=== PATIENT | female | born 1970 | race Caucasian/White ===

== ENCOUNTER 2019-10-13 00:37 | Day surgery (SDC) | payer BC, SELFPAY ==
[2019-09-28 14:17] VITALS: BMI 39.3
[2019-10-13] VITALS (7 sets, daily range): BP systolic 101–140; BP diastolic 76–92; PULSE 80–98; RESP 16–20; TEMP 36.7; O2SAT 96
--- NOTE | 2019-10-13 07:23 | WPDHPUPDATE1 ---
History and Physical Update Update Date/Time: 10/13/19 07:23 History and Physical has been reviewed, including an updated exam of the patient. There are NO changes in the patient's condition. Risks, benefits, and alternatives have been discussed and questions answered. Patient agrees to proceed with procedure.
[2019-10-13] MEDS: LACTATED RINGERS 1,000 ML 30 ML IV CONT ×2 (08:40→11:33)
--- NOTE | 2019-10-13 08:45 | WPDANESEPPF ---
Anes - Initial Pre Proc Eval Procedure: Operation Date: 10/13/19 09:30 Proposed Procedures p Urethral Sling - Sathish Dozier MD Date/Time: 10/13/19 08:45 Surgeon: Sathish Dozier MD Pre Op Diagnosis: Stress incontinence Patient Data Age: 48 Gender: F Height: 5 ft 7 in Weight: 117.3 kg Allergies Allergy/AdvReac Type Severity Reaction Status Date / Time levofloxacin AdvReac Mild UPSET Verified 10/13/19 08:22 STOMACH Home Medications Medication Instructions Recorded Confirmed Type Cholestyramine Light 4 g PO BID 08/08/19 09/28/19 History Uribel 1 tablet PO TID 08/08/19 09/28/19 History ergocalciferol (vitamin D2) 50,000 unit PO WEEKLY 08/08/19 09/28/19 History [Vitamin D2] multivitamin 1 tablet PO DAILY 08/08/19 09/28/19 History pantoprazole 40 mg PO QAM 08/08/19 09/28/19 History albuterol sulfate 90 mcg/actuation 2 puff INHALATION Q4-6H PRN #8.5 gm 08/21/19 09/28/19 Rx aerosol inhaler amitriptyline 75 mg tablet 75 mg PO HS 08/21/19 09/28/19 History triamcinolone acetonide 0.1 % 1 applic TOPICAL BID PRN #30 gm 08/21/19 09/28/19 Rx topical cream hydroxyzine HCl 25 mg tablet 25 mg PO QID PRN #40 tablet 09/11/19 09/28/19 Rx tizanidine 4 mg tablet 4 mg PO TID PRN #90 tablet 09/12/19 09/28/19 Rx Patient hx anesthesia problems: none Family hx anesthesia problems: none PMFSH Past Medical History Medical History GERD (gastroesophageal reflux disease) Smoker Tobacco abuse Family History Family History Father Patient's father is in good health Mother Patient's mother is Sibling Diabetes mellitus Family history of blood dyscrasia Family history of pulmonary embolism Family history of hearing loss Social History Social History Smoking status: Current every day smoker Second hand tobacco smoke exposure: No Alcohol intake: never Anes - Eval Final PreProcedure Day of Procedure 10/13/19 08:45 Patient weight: morbidly obese Heart: regular rate and rhythm Lungs: decreased breath sounds Airway: Mallampati scale class II Neurological: alert and oriented Last oral intake: >/= 8 hours ASA classification: III Emergent: no Anesthetic plan: proceed Anesthesia type and monitoring: general GIVS and standard monitoring Informed Consent: The patient's anesthetic plan and its attendant risks and benefits were discussed with the patient/family/POA. Questions were solicited and answers provided to the satisfaction of the patient/family/POA.
[2019-10-13] MEDS: ceFAZolin 2 GM/D5W 50 ML 2 GM/50 ML BAG IVPB (09:18)
[2019-10-13] MEDS: BUPIVACAINE/EPINEPHRINE 0.25% 50 ML VIAL INFILTRATE (09:30)
--- NOTE | 2019-10-13 10:07 | PM.PROC ---
Procedure Note - Detailed Date of procedure: 10/13/19 Pre-op diagnosis: Stress incontinence Post-op diagnosis: same Procedure performed: Retropubic mid urethral sling Cystoscopy Description of procedure: She has recurrence stress incontinence after a single incision sling. She has a history of hidradenitis suppurativa of the inner groin necessitating a approach that is not involved inner thigh incisions. She presents today for a retropubic sling. She has been pretreated with antibiotics. She has no active abscesses in her groin. She has no symptoms of urinary tract infection. She understands the risks of bleeding, infection, damage to the bladder, vaginal mesh extrusion, urinary tract mesh erosion, obstructive voiding requiring secondary procedure, hip and leg pain, dyspareunia, who recurrence or persistent stress incontinence. She agrees to proceed. She was correctly identified and informed consent was obtained. She is brought the operating room. She was given mac anesthesia. She was prepped and draped in a sterile fashion. A time-out performed. I placed a Worthy catheter. I anesthetized the anterior vaginal wall over the mid urethra. I made a 1 cm incision. I dissected out laterally taking great care not to injure the urethra vaginal wall. Oral sling was seen but not disturbed. I am made suprapubic incisions 1 finger breath on each side of the midline. I hydro distended to use the space of Retzius with local mixture of lidocaine and saline. I passed the suprapubic trocars from the suprapubic incision towards the vaginal incision. Cystoscopy was performed. There is no signs of any bladder violation. There is no erythema redness in the bladder and no signs of infection. I connected the sling to the trocars and brought them out through the suprapubic incisions. I tensioned the sling appropriately. I cut and removed the plastic sheaths. I then closed the incision with 2 Vicryl. I reperformed cystoscopy. There is no signs of any foreign body or abnormality in the bladder. Ureteral orifices are normal. Urethra is normal as well. There was no leakage on Crede day. I cut excess sling material. Close incision with glue. She was awakened and transferred to the PACU in stable condition. Anesthesia: MAC Surgeon: Sathish Dozier MD Estimated blood loss (mL): 30 Drains: No Packing: No Pathology: none sent Complications: No immediate complications Condition: stable Disposition: PACU
--- NOTE | 2019-10-13 10:30 | SUR.PHASEII ---
ATTEMPTED BUT UNABLE TO VOID.
--- NOTE | 2019-10-13 11:44 | SUR.PHASEII ---
ATTEMPTED 3RD TIME TO VOID WITHOUT SUCCESS. C/O'ING URGENCY AND PRESSURE.
--- NOTE | 2019-10-13 12:38 | SUR.PHASEII ---
1300 DR. HESTER NOTIFIED RE: PT UNABLE TO VOID. DR. HESTER ORDERED TO PLACE HALL CATHETER TO GO HOME WITH. PT AND INSTRUCTED RE: HOW TO EMPTY HALL BAG. 825 ML PALE-PINK URINE WITH 1 CLOT NOTED. PT FEELS MUCH BETTER; PAIN 2/10.
== END 2019-10-13 12:40 | disposition home or self-care (01) ==
PROVIDERS: PCP Physician Assistant; Visit Provider Urology
PROC: (CPT 57288; principal; 2019-10-13 09:30)
DX: N39.3 Stress incontinence (female) (male) (principal); K21.9 Gastro-esophageal reflux disease without esophagitis; F17.210 Nicotine dependence, cigarettes, uncomplicated; E66.01 Morbid (severe) obesity due to excess calories; Z68.41 Body mass index [BMI] 40.0-44.9, adult
CPT/HCPCS: 57288; A9270; C1771; J0131; J0690; J2250; J2704; J3010; J7030; J7120

== ENCOUNTER 2019-10-14 16:19 | Emergency (ER) | payer BC, SELFPAY ==
[2019-10-14 16:41] VITALS: BP 137/92; PULSE 96; RESP 18; TEMP 36.8; O2SAT 98
--- NOTE | 2019-10-14 17:11 | ED.GENADULT ---
HPI - General Adult General Chief complaint: Urogenital-Female Stated complaint: HALL ISSUE Time Seen by Provider: 10/14/19 17:07 Source: patient Mode of arrival: ambulatory Limitations: no limitations History of Present Illness HPI narrative: Patient had surgery yesterday for bladder sling. She was not able to void after surgery so they placed a Hall today she does not feel as though the Hall is draining appropriately she stated that there was 300ml out yesterday after they placed it only on 100ml today, and she feels like her bladder is full. Bladder scan shows an empty bladder Onset (ago): hour(s) Associated symptoms: denies other symptoms Related Data Home Medications Medication Instructions Recorded Confirmed Cholestyramine Light 4 g PO BID 08/08/19 10/13/19 Uribel 1 tablet PO TID 08/08/19 10/13/19 ergocalciferol (vitamin D2) 50,000 unit PO WEEKLY 08/08/19 10/13/19 [Vitamin D2] multivitamin 1 tablet PO DAILY 08/08/19 10/13/19 pantoprazole 40 mg PO QAM 08/08/19 10/13/19 amitriptyline 75 mg tablet 75 mg PO HS 08/21/19 10/13/19 Allergies Allergy/AdvReac Type Severity Reaction Status Date / Time levofloxacin AdvReac Mild UPSET Verified 10/13/19 08:22 STOMACH Review of Systems Review of Systems: All systems reviewed & are unremarkable except as noted in HPI and below PMFSH Past Medical History Medical History (Updated 10/14/19 @ 17:56 by Roseanna Moctezuma PA-C) Fallen bladder GERD (gastroesophageal reflux disease) Smoker Tobacco abuse Family History Family History Father Patient's father is in good health Mother Patient's mother is Sibling Diabetes mellitus Family history of blood dyscrasia Family history of pulmonary embolism Family history of hearing loss Social History Social History Smoking status: Current every day smoker Second hand tobacco smoke exposure: No Alcohol intake: never Gender identity (if verbalized by the patient): Female Exam Const: General: no acute distress Resp: Effort & Inspection: normal respiratory effort Auscultation: clear to auscultation bilaterally Cardio: Rate: regular rate Rhythm: regular rhythm GI: GI Palp: Yes Soft to palpation : General: Yes bladder normal to palpation Urinary Catheter: Urinary Catheter: patent and draining and urine clear Skin: General skin exam: normal color Rashes: no rashes Extrem: General: normal to inspection Psych: Mental Status: mental status grossly normal Course Course Emergency Course: Hall was placed yesterday after the patient's urologic surgery to repair her ability to void. She has an appointment on Wednesday for Hall removal. It seems the patient was unclear as to how to position the Hall for optimal drainage. Education done in the emergency room, the Hall is draining well. We flushed to make sure that there were no obstructions. Patient can follow-up with her urologist as scheduled. She is fine with the plan. Vital Signs Vital signs: Vital Signs Temperature 36.8 C 10/14/19 16:41 Pulse Rate 96 10/14/19 16:41 Respiratory Rate 18 10/14/19 16:41 Blood Pressure 137/92 H 10/14/19 16:41 Pulse Oximetry 98 10/14/19 16:41 Temperature 36.8 C 10/14/19 16:41 Pulse Rate 96 10/14/19 16:41 Respiratory Rate 18 10/14/19 16:41 Blood Pressure 137/92 H 10/14/19 16:41 Pulse Oximetry 98 10/14/19 16:41 Medical Decision Making Vital Signs Vital Signs: Vital Signs Temperature 36.8 C 10/14/19 16:41 Pulse Rate 96 10/14/19 16:41 Respiratory Rate 18 10/14/19 16:41 Blood Pressure 137/92 H 10/14/19 16:41 Pulse Oximetry 98 10/14/19 16:41 Temperature 36.8 C 10/14/19 16:41 Pulse Rate 96 10/14/19 16:41 Respiratory Rate 18 10/14/19 16:41 Blood Pressure 137/92 H 10/14/19 16:41 Pulse Oximetry 98 10/14/19 16:4
== END 2019-10-14 18:17 | disposition home or self-care (01) ==
LOC: ANHED 18:10
PROVIDERS: Emergency Provider Emergency Medicine; PCP Physician Assistant
DX: Z46.6 Encounter for fitting and adjustment of urinary device (principal); K21.9 Gastro-esophageal reflux disease without esophagitis; Z98.890 Other specified postprocedural states; F17.200 Nicotine dependence, unspecified, uncomplicated
CPT/HCPCS: 99283

== ENCOUNTER → 2020-06-20 10:20 | Outpatient (CLI) | payer BC, SELFPAY ==
--- NOTE | ~2020-06-20 | MM_ITS ---
EXAMINATION: MM screening [facility] HISTORY: Screening TECHNIQUE: Craniocaudal and mediolateral oblique 3-D tomosynthesis images were obtained and synthetic 2-D images were generated. CAD analysis was submitted and interpreted. COMPARISON: Comparison to multiple prior studies sequentially, with oldest reviewed study dated 10/2017. BREAST PARENCHYMAL COMPOSITION: There are scattered areas of fibroglandular density. FINDINGS: There is no evidence of suspicious mass, calcification, or architectural distortion to sugg est malignancy in either breast. There has been no suspicious interval change. IMPRESSION: 1. No mammographic evidence of malignancy. 2. Recommend routine screening mammography in one year. BI-RADS Category 1: Negative Reviewed, dictated and finalized at location A.
== END ==
PROVIDERS: PCP Physician Assistant; Visit Provider Advanced Practice Midwife
DX: Z12.31 Encounter for screening mammogram for malignant neoplasm of breast (principal)
CPT/HCPCS: 77063; 77067

== ENCOUNTER → 2020-07-25 07:02 | Outpatient (CLI) | payer BC, SELFPAY ==
--- NOTE | ~2020-07-25 | MR_ITS ---
EXAMINATION: Marco Judd DATE: 07/25/2020 08:11 INDICATION: Arthralgia of bilateral temporomandibular joints. Right jaw pain and popping. Myalgia of mastication muscle. TECHNIQUE: Magnetic resonance imaging (MRI) of the temporomandibular joints was performed without int ravenous contrast. Sequences included closed-mouth sagittal T2-weighted FSE and PD-weighted FSE and c oronal T1-weighted SE and open-mouth sagittal T2-weighted FSE and PD-weighted FSE and coronal T1-weig hted SE. COMPARISON: None. FINDINGS: The right temporomandibular joint demonstrates normal morphology of the mandibular condyle. The disc is in normal position with the mouth closed. There is decreased anterior translation of the mandibula r condyle with the mouth open. The disc is in normal position with the mouth open. The left temporomandibular joint demonstrates small osteophytes of the mandibular condyle. The disc i s in normal position with the mouth closed. There is decreased anterior translation of the mandibular condyle with the mouth open. The disc is in normal position with the mouth open. IMPRESSION: 1. Mild left temporomandibular joint osteoarthritis. 2. Normal position of the discs with the mouth closed and open. Reviewed, dictated and finalized at location B. [employer]
== END ==
PROVIDERS: PCP Physician Assistant
DX: M79.11 Myalgia of mastication muscle (principal); M26.623 Arthralgia of bilateral temporomandibular joint; M26.633 Articular disc disorder of bilateral temporomandibular joint
CPT/HCPCS: 70336

== ENCOUNTER 2020-10-15 01:25 | Outpatient (CLI) | payer BC, SELFPAY ==
[2020-10-15 19:18] LABS: SARS-CoV-2 RNA PCR Negative
== END 2020-10-15 01:26 | disposition home or self-care (01) ==
LOC: ANHCOVIDDT 01:25
PROVIDERS: PCP Physician Assistant; Visit Provider Internal Medicine Gastroenterology
DX: Z01.812 Encounter for preprocedural laboratory examination (principal); Z20.822 Contact with and (suspected) exposure to COVID-19
CPT/HCPCS: C9803; U0003; U0005

== ENCOUNTER 2020-10-18 00:19 | Day surgery (SDC) | payer BC, SELFPAY ==
[2020-09-19 11:55] VITALS: BMI 38.0
[2020-10-02 13:40] VITALS: BMI 37.6
[2020-10-18 06:46] VITALS: BP 134/91; PULSE 96; RESP 18; TEMP 36.6; O2SAT 98
[2020-10-18] MEDS: LACTATED RINGERS 1,000 ML 150 ML IV CONT (06:52)
--- NOTE | 2020-10-18 07:24 | WPDGICN ---
Assessment and Plan Assessment and plan (1) Dysphagia: Code(s): R13.10 - Dysphagia, unspecified Status: Acute Assessment and Plan: Because of patient's difficulty swallowing EGD will be performed to exclude narrowing of the esophagus. (2) GERD (gastroesophageal reflux disease): Code(s): K21.9 - Gastro-esophageal reflux disease without esophagitis Status: Acute Assessment and Plan: Patient has a history of GE reflux disease normal EGD described in 2017. Plan is for follow-up EGD at this time to assess response to current therapy a pantoprazole 40 mg p.o. daily. Patient should continue to elevate head of bed at night with no late snacks. GI Consult Note Consult date/time: 10/18/20 07:24 HPI: Marco Judd is a 49 year old female seen in evaluation at the request of MARY Baptiste. Patient complains of difficulty swallowing. Food will catch the mid substernal portion the chest. These symptoms have been present for the last 1-2 months. Patient does have a longstanding history of acid reflux disease. Previously seen by Dr. Ellis Sullivan patient states that the symptoms have been improved with no heartburn taking pantoprazole 40 mg p.o. daily. She occasionally will supplement this with Zofran. Patient's family history is noncontributory. Patient denies any weight loss or bleeding. Because of difficulty swallowing patient presents today for EGD to evaluate more thoroughly. Review of Systems Review of Systems: All systems reviewed & are unremarkable except as noted in HPI and below PMFSH Past Medical History Medical History (Updated 10/18/20 @ 07:26 by Sajan Jackson MD) Fallen bladder GERD (gastroesophageal reflux disease) Smoker Tobacco abuse Surgical History Surgical History History of bladder surgery Family History Family History Father Patient's father is in good health Mother Patient's mother is Sibling Diabetes mellitus Family history of blood dyscrasia Family history of pulmonary embolism Family history of hearing loss Social History Social History Smoking packs per day: 0.5 Smoking cigarettes per day: 10.0 Years smoked: 15 Smoking pack-years: 7.50 Smoking status: Current every day smoker Tobacco type: cigarettes Second hand tobacco smoke exposure: No Alcohol intake: former Drinks per week: 1 Substance use: never Substance use type: does not use Living arrangements: with family Gender identity (if verbalized by the patient): Female Spiritual care concerns: No Meds Home Medications and Allergies Home Medications Medication Instructions Recorded Confirmed Type Cholestyramine Light 4 g PO BID 08/08/19 10/02/20 History multivitamin 1 tablet PO DAILY 08/08/19 10/02/20 History pantoprazole 40 mg PO QAM 08/08/19 10/02/20 History albuterol sulfate 90 mcg/actuation 2 puff INHALATION Q4-6H PRN #8.5 gm 04/04/20 10/02/20 Rx aerosol inhaler mirabegron 50 mg tablet,extended 50 mg PO DAILY 04/04/20 10/02/20 History release 24 hr hydroxyzine HCl 25 mg tablet 25 mg PO QID PRN #60 tablet 04/05/20 10/02/20 Rx diclofenac sodium 75 mg 75 mg PO BID PRN #60 tablet 05/08/20 10/02/20 Rx tablet,delayed release tizanidine 4 mg tablet 4 mg PO TID PRN #90 tablet 06/12/20 10/02/20 Rx amitriptyline 150 mg PO HS 10/02/20 10/02/20 History fluticasone propionate 2 spray INTRANASAL DAILY 10/02/20 10/02/20 History Allergies Allergy/AdvReac Type Severity Reaction Status Date / Time levofloxacin AdvReac Mild UPSET Verified 10/18/20 06:45 STOMACH Vital Signs Vital Signs - 24 hr 10/18/20 06:46 Temperature 97.9 F Pulse Rate 96 Respiratory Rate 18 Blood Pressure 134/91 H Pulse Oximetry 98 Exam Narrative: Exam Narrative: Physical ex
--- NOTE | 2020-10-18 07:47 | WPDANESEPPF ---
Anes - Initial Pre Proc Eval Procedure: Operation Date: 10/18/20 08:00 Proposed Procedures p Esophagogastroduodenoscopy - Sajan Jackson MD Date/Time: 10/18/20 07:47 Surgeon: Sajan Jackson MD Pre Op Diagnosis: GERD, Dysphagia Patient Data Age: 49 Gender: F Height: 5 ft 7 in Weight: 110.5 kg Last Vital Signs Temp 97.9 F 10/18/20 06:46 Pulse 96 10/18/20 06:46 Resp 18 10/18/20 06:46 BP 134/91 H 10/18/20 06:46 Pulse Ox 98 10/18/20 06:46 Allergies Allergy/AdvReac Type Severity Reaction Status Date / Time levofloxacin AdvReac Mild UPSET Verified 10/18/20 06:45 STOMACH Home Medications Medication Instructions Recorded Confirmed Type Cholestyramine Light 4 g PO BID 08/08/19 10/02/20 History multivitamin 1 tablet PO DAILY 08/08/19 10/02/20 History pantoprazole 40 mg PO QAM 08/08/19 10/02/20 History albuterol sulfate 90 mcg/actuation 2 puff INHALATION Q4-6H PRN #8.5 gm 04/04/20 10/02/20 Rx aerosol inhaler mirabegron 50 mg tablet,extended 50 mg PO DAILY 04/04/20 10/02/20 History release 24 hr hydroxyzine HCl 25 mg tablet 25 mg PO QID PRN #60 tablet 04/05/20 10/02/20 Rx diclofenac sodium 75 mg 75 mg PO BID PRN #60 tablet 05/08/20 10/02/20 Rx tablet,delayed release tizanidine 4 mg tablet 4 mg PO TID PRN #90 tablet 06/12/20 10/02/20 Rx amitriptyline 150 mg PO HS 10/02/20 10/02/20 History fluticasone propionate 2 spray INTRANASAL DAILY 10/02/20 10/02/20 History Patient hx anesthesia problems: none Family hx anesthesia problems: none PMFSH Past Medical History Medical History (Updated 10/18/20 @ 07:26 by Sajan Jackson MD) Fallen bladder GERD (gastroesophageal reflux disease) Smoker Tobacco abuse Surgical History Surgical History History of bladder surgery Family History Family History Father Patient's father is in good health Mother Patient's mother is Sibling Diabetes mellitus Family history of blood dyscrasia Family history of pulmonary embolism Family history of hearing loss Social History Social History Smoking packs per day: 0.5 Smoking cigarettes per day: 10.0 Years smoked: 15 Smoking pack-years: 7.50 Smoking status: Current every day smoker Tobacco type: cigarettes Second hand tobacco smoke exposure: No Alcohol intake: former Drinks per week: 1 Substance use: never Substance use type: does not use Living arrangements: with family Gender identity (if verbalized by the patient): Female Spiritual care concerns: No Anes - Eval Final PreProcedure Day of Procedure 10/18/20 07:47 Patient weight: obese Heart: regular rate and rhythm Lungs: clear to auscultation Airway: Mallampati scale class II Neurological: alert and oriented Last oral intake: >/= 8 hours ASA classification: III Emergent: no Anesthetic plan: proceed Anesthesia type and monitoring: general GIVS and standard monitoring Informed Consent: The patient's anesthetic plan and its attendant risks and benefits were discussed with the patient/family/POA. Questions were solicited and answers provided to the satisfaction of the patient/family/POA.
[2020-10-18 08:06] VITALS: BP 131/93; PULSE 84; RESP 15; O2SAT 98
[2020-10-18 08:16] VITALS: BP 120/77; PULSE 86; RESP 16; O2SAT 99
[2020-10-18 08:26] VITALS: BP 129/76; PULSE 83; RESP 17; O2SAT 100
== END 2020-10-18 08:40 | disposition home or self-care (01) ==
PROVIDERS: PCP Physician Assistant; Visit Provider Internal Medicine Gastroenterology
PROC: 0DJ08ZZ Inspection of Upper Intestinal Tract, Via Natural or Artificial Opening Endoscopic (ICD-10-PCS; CPT 43235; principal; 2020-10-18 08:00)
DX: K22.2 Esophageal obstruction (principal); K21.9 Gastro-esophageal reflux disease without esophagitis; R13.19 Other dysphagia; K44.9 Diaphragmatic hernia without obstruction or gangrene; F17.210 Nicotine dependence, cigarettes, uncomplicated; Z79.51 Long term (current) use of inhaled steroids
CPT/HCPCS: 43450; 43235; 87081; J2704; J7120

== ENCOUNTER → 2021-01-25 00:49 | Outpatient (CLI) | payer BC, SELFPAY ==
[2021-01-25 19:43] LABS: SARS-CoV-2 RNA PCR Negative
== END ==
PROVIDERS: PCP Internal Medicine; Visit Provider Obstetrics & Gynecology
DX: Z01.812 Encounter for preprocedural laboratory examination (principal); Z20.822 Contact with and (suspected) exposure to COVID-19
CPT/HCPCS: C9803; U0003; U0005

== ENCOUNTER 2021-05-07 01:17 | Day surgery (SDC) | payer BC, SELFPAY ==
[2021-01-17 14:31] VITALS: BMI 38.0
[2021-04-30 15:47] VITALS: BMI 37.5
--- NOTE | 2021-05-06 13:19 | WPDANESEPPF ---
Anes - Initial Pre Proc Eval Procedure: Operation Date: 05/07/21 08:30 Proposed Procedures p Laparoscopic Bilateral Salpingo Oophorectomy - Diana Duff MD Date/Time: 05/06/21 13:19 Surgeon: Diana Duff MD Pre Op Diagnosis: ovarian cyst Patient Data Age: 50 Gender: F Height: 1.7 m Weight: 108.88 kg Allergies Allergy/AdvReac Type Severity Reaction Status Date / Time levofloxacin AdvReac Mild UPSET Verified 05/07/21 06:55 STOMACH Home Medications Medication Instructions Recorded Confirmed Type Cholestyramine Light 4 g PO DAILY 08/08/19 05/07/21 History pantoprazole 40 mg PO DAILY 08/08/19 05/07/21 History amitriptyline 150 mg PO HS 10/02/20 05/07/21 History fluticasone propionate 2 spray INTRANASAL DAILY 10/02/20 05/07/21 History [id number] 1 tablet PO TID 01/17/21 05/07/21 History [Uribel] tizanidine 4 - 8 mg PO Q6-8H PRN 01/17/21 05/07/21 History albuterol sulfate 90 mcg/actuation 2 puff INHALATION Q4-6H PRN #8.5 g 04/21/21 05/07/21 Rx aerosol inhaler Patient hx anesthesia problems: none Family hx anesthesia problems: none PMFSH Past Medical History Medical History (Updated 05/06/21 @ 13:20 by Matt Asher DO) Anxiety Fallen bladder GERD (gastroesophageal reflux disease) IBS (irritable bowel syndrome) Smoker Tobacco abuse Surgical History Surgical History History of bladder surgery Family History Family History Father Patient's father is in good health Mother Patient's mother is Sibling Diabetes mellitus Family history of blood dyscrasia Family history of pulmonary embolism Family history of hearing loss Social History Social History Smoking packs per day: 0.5 Smoking cigarettes per day: 10.0 Years smoked: 10 Smoking pack-years: 5.00 Smoking status: Former smoker Tobacco type: e-cigarettes/vaping Second hand tobacco smoke exposure: No Alcohol intake: never Drinks per week: 1 Substance use: never Substance use type: does not use Living arrangements: with family Gender identity (if verbalized by the patient): Female Spiritual care concerns: No Anes - Eval Final PreProcedure Day of Procedure 05/06/21 13:19 Patient weight: obese Heart: regular rate and rhythm Lungs: clear to auscultation and normal air movement Airway: Mallampati scale class II Neurological: alert and oriented Last oral intake: >/= 8 hours ASA classification: III Emergent: no Anesthetic plan: proceed Anesthesia type and monitoring: general ETT and standard monitoring Informed Consent: The patient's anesthetic plan and its attendant risks and benefits were discussed with the patient/family/POA. Questions were solicited and answers provided to the satisfaction of the patient/family/POA.
[2021-05-07] VITALS (9 sets, daily range): BP systolic 116–141; BP diastolic 75–82; PULSE 100–110; RESP 12–18; TEMP 36.3; O2SAT 92–99
[2021-05-07] MEDS: LACTATED RINGERS 1,000 ML 30 ML IV CONT ×2 (07:08→10:29)
[2021-05-07] MEDS: KETOROLAC 15 MG/ML VIAL (*BKC) IV PUSH (07:09)
[2021-05-07] MEDS: ACETAMINOPHEN 500 MG TABLET 1000 MG PO (07:10)
--- NOTE | 2021-05-07 07:18 | WPDHPUPDATE1 ---
History and Physical Update Update Date/Time: 05/07/21 07:18 History and Physical has been reviewed, including an updated exam of the patient. There are NO changes in the patient's condition. Risks, benefits, and alternatives have been discussed and questions answered. Patient agrees to proceed with procedure.
--- NOTE | 2021-05-07 10:29 | P.OP_ITS ---
Procedure Note - Detailed Date of Procedure 05/07/21 Pre-op Diagnosis ovarian cyst Post-op Diagnosis same Procedure Performed Laparoscopic bilateral salpingo- oophorectomy, adhesiolysis - 30 min Surgeon Diana Duff MD Anesthesia general Indications Ovarian Cyst Findings Bilateral hemorrhagic ovarian cyst. Adhesions surrounding the bilateral ovaries. Description of Procedure The patient was taken the operating room. She was prepped and draped in the dorsal lithotomy position after induction of general anesthesia. A 5 mm skin incision was made in the left upper quadrant of the abdominal skin. A 5 mm troca r was inserted the intra-abdominal cavity under direct visualization of the scope. Pneumoperitoneum was achieved. An 11 mm trocar was inserted in the left lower quadrant identical fashion. A 5 mm infraumbilical trocar was inserted in identical fashion as well. Adhesiolysis was performed on the bilateral para ovarian tissue. This was done with sharp and blunt dissection using LigaSure cautery. Infundibulopelvic ligaments were isolated and transected using LigaSure cautery. Ureters were identified but difficult to visualize due to the adipose tissue surrounding the colon and pelvic retroperitoneal fat. The appeared to be intact. The para ovarian tissue was cauterized transected with LigaSure cautery. The mesosalpinx in the broad ligament were cauterized transected losing LigaSure cautery. The fallopian tube and suspensory ligament the ovary were cauterized transected using LigaSure cautery. This was done in a bilateral fashion. The fallopian tubes and ovaries were taken out through the left lower quadrant trocar site using endobag. The pelvis was irrigated. Hematoma was applied to the dissected areas.. The pneumoperitoneum was reduced. The trocars removed. The skin was closed with subcuticular 4 Monocryl and covered with Dermabond. She was taken to cover stable condition. Sponge lap and needle counts were correct x2. Estimated Blood Loss 25 Drains No Packing No Pathology yes Complications No immediate complications Condition stable Disposition PACU
[2021-05-07] MEDS: fentaNYL CITRATE INJ (*CRX) 100 MCG/2 ML VIAL 25 MCG IV PUSH ×3 (11:15→11:26)
[2021-05-07] MEDS: oxyCODONE HCL (*CRX) 5 MG TAB IR PO (11:59)
--- NOTE | 2021-06-01 19:27 | PM.IMHP ---
H&P: HPI History of Present Illness Date/Time: 06/01/21 19:27 this patient is a 50-year-old female with ovarian cyst. We have agreed to perform laparoscopic bilateral salpingo-oophorectomy. She understands the risks. She understands that injuries may occur the result in hospitalization, more surgery, and severe illness. She denies any vaginal bleeding. She denies any vaginal discharge. She denies any pelvic pain. She denies any nausea, vomiting, fever, chills. She denies any chest pain or shortness of breath Chief Complaint: Ovarian cyst Review of Systems Review of Systems: All systems reviewed & are unremarkable except as noted in HPI and below PMFSH Past Medical History Medical History (Updated 06/01/21 @ 19:32 by Diana Duff MD) Anxiety Fallen bladder GERD (gastroesophageal reflux disease) IBS (irritable bowel syndrome) Smoker Tobacco abuse Surgical History Surgical History History of bladder surgery Family History Family History Father Patient's father is in good health Mother Patient's mother is Sibling Diabetes mellitus Family history of blood dyscrasia Family history of pulmonary embolism Family history of hearing loss Social History Social History Smoking packs per day: 0.5 Smoking cigarettes per day: 10.0 Years smoked: 10 Smoking pack-years: 5.00 Smoking status: Former smoker Tobacco type: e-cigarettes/vaping Second hand tobacco smoke exposure: No Alcohol intake: never Drinks per week: 1 Substance use: never Substance use type: does not use Living arrangements: with family Gender identity (if verbalized by the patient): Female Spiritual care concerns: No Meds Home Medications and Allergies Home Medications Medication Instructions Recorded Confirmed Type Cholestyramine Light 4 g PO DAILY 08/08/19 05/07/21 History pantoprazole 40 mg PO DAILY 08/08/19 05/07/21 History amitriptyline 150 mg PO HS 10/02/20 05/07/21 History fluticasone propionate 2 spray INTRANASAL DAILY 10/02/20 05/07/21 History Uribel 1 tablet PO TID 01/17/21 05/07/21 History tizanidine 4 - 8 mg PO Q6-8H PRN 01/17/21 05/07/21 History albuterol sulfate 90 mcg/actuation 2 puff INHALATION Q4-6H PRN #8.5 g 04/21/21 05/07/21 Rx aerosol inhaler hydrocodone-acetaminophen 1 - 2 tablet PO Q4H PRN #20 tablet 05/07/21 Rx Allergies Allergy/AdvReac Type Severity Reaction Status Date / Time levofloxacin AdvReac Mild UPSET Verified 05/07/21 06:55 STOMACH Exam Const: General: healthy appearing, comfortable and no acute distress Resp: Auscultation: clear to auscultation bilaterally, no rales, no rhonchi and no wheezes Cardio: Rate: regular rate Heart sounds: no click, no murmurs and no rubs GI: Inspection: non-distended Auscultation: normal bowel sounds Extrem: General: normal to inspection, no pedal edema and no calf tenderness Assessment and Plan Assessment and plan (1) Ovarian cyst: Code(s): N83.209 - Unspecified ovarian cyst, unspecified side Status: Acute Additional Plan this patient is a 50-year-old female with ovarian cyst. we have agreed to perform laparoscopic bilateral salpingo-oophorectomy. She understands the risks, benefits, and alternatives. She has completed the informed consent process is ready to proceed.
== END 2021-05-07 12:20 | disposition home or self-care (01) ==
PROVIDERS: PCP Internal Medicine; Visit Provider Obstetrics & Gynecology
PROC: (CPT 49320; principal; 2021-05-07 08:30)
DX: N83.02 Follicular cyst of left ovary (principal); N83.01 Follicular cyst of right ovary; D27.0 Benign neoplasm of right ovary; N73.6 Female pelvic peritoneal adhesions (postinfective); K21.9 Gastro-esophageal reflux disease without esophagitis; J42 Unspecified chronic bronchitis; K58.9 Irritable bowel syndrome, unspecified; F41.9 Anxiety disorder, unspecified; E66.9 Obesity, unspecified; Z68.39 Body mass index [BMI] 39.0-39.9, adult; F17.290 Nicotine dependence, other tobacco product, uncomplicated; Z79.899 Other long term (current) drug therapy
CPT/HCPCS: 58661; 88305; A9270; J1100; J1170; J1885; J2250; J2405; J2704; J2710; J3010; J7030; J7120

== ENCOUNTER → 2021-08-04 09:59 | Outpatient (CLI) | payer BC, SELFPAY ==
--- NOTE | ~2021-08-04 | MM_ITS ---
EXAMINATION: MM screening [facility] [place] HISTORY: Screening mammogram TECHNIQUE: Craniocaudal and mediolateral oblique 3-D tomosynthesis images were obtained and synthetic 2-D images were generated. CAD analysis was submitted and interpreted. COMPARISON: 06/20/2020, 04/14/2019, 03/14/2018 BREAST PARENCHYMAL COMPOSITION: There are scattered areas of fibroglandular density. FINDINGS: There is no evidence of suspicious mass, calcification, or architectural distortion to sugg est malignancy in either breast. There has been no suspicious interval change. IMPRESSION: 1. No mammographic evidence of malignancy. 2. Recommend routine screening mammography in one year. BI-RADS Category 1: Negative Reviewed, dictated and finalized at location A. ER TACKER
== END ==
PROVIDERS: PCP Physician Assistant; Visit Provider Advanced Practice Midwife
DX: Z12.31 Encounter for screening mammogram for malignant neoplasm of breast (principal)
CPT/HCPCS: 77063; 77067

== ENCOUNTER → 2021-10-07 09:27 | Outpatient (CLI) | payer BC, SELFPAY ==
--- NOTE | ~2021-10-07 | CT_ITS ---
EXAMINATION: CT sinus wo con DATE: 10/07/2021 09:56 INDICATION: Chronic sinusitis TECHNIQUE: Computed tomography (CT) of the paranasal sinuses was performed without intravenous contra st. The dose-length product was 280.89 mGy-cm. Automated exposure control and iterative reconstructio n technique were employed. COMPARISON: None FINDINGS: There is minimal mucosal thickening of the maxillary sinuses. Rightward nasal septal deviat ion. There is a left-sided deon bullosa. Ostiomeatal units are patent. IMPRESSION: 1. Minimal maxillary sinus disease. Reviewed, dictated and finalized at location B. LAC POLISHER
== END ==
PROVIDERS: Visit Provider Nurse Practitioner Family
DX: J32.9 Chronic sinusitis, unspecified (principal)
CPT/HCPCS: 70486

== ENCOUNTER → 2021-12-05 10:10 | Outpatient (CLI) | payer BC, SELFPAY ==
--- NOTE | ~2021-12-05 | XR_ITS ---
EXAMINATION: XR abdomen/kub 1V INDICATION: Microscopic hematuria TECHNIQUE: Supine views of the abdomen were obtained on 2 radiographs. COMPARISON: 09/30/2016 FINDINGS: No urinary tract calculi are identified. There are phleboliths of the pelvis. Cholecystecto my clips are noted. A neurostimulator device ends with its lead projecting in the left pelvis. IMPRESSION: 1. No urolithiasis identified. Reviewed, dictated and finalized at location B.
--- NOTE | ~2021-12-05 | CT_ITS ---
EXAMINATION: CT abdomen pelvis wo/w con DATE: 12/05/2021 11:04 INDICATION: Microscopic hematuria. Patient complains of pressure on bladder. TECHNIQUE: Computed tomography (CT) of the abdomen and pelvis was performed without and subsequently with 130 CC Omnipaque 350 intravenous contrast. Automated exposure control and iterative reconstructi on technique were employed. Exam dose: 2197.78 mGy-cm total exam DLP. COMPARISON: 09/30/2016 CT abdomen pelvis FINDINGS: Bilateral discoid atelectasis or scarring at the lung bases. Calcified pulmonary granuloma at the base of the middle lobe. Normal heart size. No pericardial or pleural effusion. Status post cholecystectomy. No hepatic, splenic, pancreatic, adrenal space-occupying mass lesion. No bile duct or pancreatic duct dilatation. There are several right renal cysts measuring up to 1.3 cm dimension. No other renal space occupying mass lesion is evident. No urinary tract calculus or hydroureteronephrosis. The urinary bladder is unremarkable. The uterus measures up to 10 cm height, 5 cm AP dimension. No adnexal mass lesion. There are numerous diverticula of the sigmoid and descending colon, splenic flexure as well as transv erse colon, hepatic flexure. No CT evidence of diverticulitis. No bowel obstruction, bowel wall thick ening, pneumatosis or intraperitoneal free air. There is atherosclerotic calcification of the abdominal aorta and iliac arteries but no aneurysm. No intraperitoneal or retroperitoneal or pelvic mass lesion or adenopathy or ascites. Small fat-containing umbilical hernia. No suspicious osteolytic or osteoblastic lesions are noted. IMPRESSION: Status post cholecystectomy Several right renal cysts measuring up to 1.3 cm Diverticulosis of left and right colon; no CT evidence of diverticulitis Reviewed, dictated and finalized at Location A. Reviewed, dictated and finalized at location A.
[2021-12-05 10:40] LABS: Estimated Glomerular Filt Rate > 60
== END ==
PROVIDERS: Visit Provider Nurse Practitioner Family
DX: R31.29 Other microscopic hematuria (principal); Z90.49 Acquired absence of other specified parts of digestive tract; N28.1 Cyst of kidney, acquired; K57.30 Diverticulosis of large intestine without perforation or abscess without bleeding
CPT/HCPCS: 74018; 74178; Q9967

== ENCOUNTER 2022-01-09 00:12 | Day surgery (SDC) | payer BC, SELFPAY ==
[2021-10-24 15:47] VITALS: BMI 38.9
[2021-12-29 13:28] VITALS: BMI 37.3
--- NOTE | 2022-01-08 14:51 | PM.HPGS ---
History of Present Illness History of Present Illness Consent: Risks, benefits, and alternatives have been discussed and questions answered. Patient agrees to proceed with procedure. Chief complaint: dysphagia Narrative: Marco Judd is a 51 year old female who has had a great deal dysphagia for solid food. Meat bread and other solid foods get stuck in her mid substernal area. This happens at least once a day. She underwent EGD by 1 year ago and had esophageal dilatation for a Schatzki's ring. She does not recall having any significant benefit from that procedure. She is continuing to take her pantoprazole for GERD. She denies any significant heartburn. She has not lost weight. Review of Systems Review of Systems: All systems reviewed & are unremarkable except as noted in HPI and below PMFSH Past Medical History Medical History Anxiety Fallen bladder GERD (gastroesophageal reflux disease) IBS (irritable bowel syndrome) Smoker Tobacco abuse Surgical History Surgical History History of bladder surgery Family History Family History Father Patient's father is in good health Mother Patient's mother is Sibling Diabetes mellitus Family history of blood dyscrasia Family history of pulmonary embolism Family history of hearing loss Social History Social History Smoking packs per day: 0.5 Smoking cigarettes per day: 10.0 Years smoked: 19 Smoking pack-years: 9.50 Smoking status: Current every day smoker Tobacco type: cigarettes Second hand tobacco smoke exposure: No Alcohol intake: never Drinks per week: 1 Substance use: never Substance use type: does not use Living arrangements: with family Gender identity (if verbalized by the patient): Female Spiritual care concerns: No Meds Home Medications and Allergies Home Medications Medication Instructions Recorded Confirmed Type fluticasone propionate 2 spray INTRANASAL DAILY 10/02/20 12/29/21 History tizanidine 4 - 8 mg PO Q6-8H PRN 01/17/21 10/24/21 History ergocalciferol (vitamin D2) 1,250 1,250 mcg PO WEEKLY #13 cap 07/17/21 10/24/21 Rx mcg (50,000 unit) capsule cholestyramine-aspartame 4 gram 4 g PO DAILY #210 g 09/30/21 10/24/21 Rx oral powder estradiol 1 mg tablet 1 mg PO DAILY 09/30/21 10/24/21 History pantoprazole 40 mg tablet,delayed 40 mg PO DAILY #30 tablet 09/30/21 10/24/21 Rx release prochlorperazine maleate 10 mg 10 mg PO Q8H PRN #30 tablet 09/30/21 10/24/21 Rx tablet albuterol sulfate 90 mcg/actuation 2 puff INHALATION Q4-6H PRN #8.5 g 10/20/21 10/24/21 Rx aerosol inhaler estradiol 0.01 applic VAGINAL 3XW 12/29/21 12/29/21 History vibegron [Gemtesa] 75 mg PO DAILY 12/29/21 12/29/21 History hydroxyzine HCl 25 mg tablet 25 mg PO QID PRN #60 tablet 01/07/22 01/09/22 Rx Allergies Allergy/AdvReac Type Severity Reaction Status Date / Time levofloxacin AdvReac Mild UPSET Verified 01/09/22 09:50 STOMACH diclofenac AdvReac Itching Verified 01/09/22 09:50 Exam Const: General: alert Orientation/consciousness: patient oriented x3 Resp: Auscultation: clear to auscultation bilaterally Cardio: Rhythm: regular rhythm GI: GI Palp: Yes Soft to palpation and No Tenderness to palpation present (GI) Neuro: General: patient oriented x3 Assessment and Plan Assessment and plan (1) Dysphagia: Code(s): R13.10 - Dysphagia, unspecified Status: Acute Assessment and Plan: EGD with possible biopsy or dilatation or cautery.
[2022-01-09 09:51] VITALS: BP 134/97; PULSE 79; RESP 20; TEMP 36; O2SAT 100; BMI 36.8
--- NOTE | 2022-01-09 09:55 | WPDANESEPPF ---
Anes - Initial Pre Proc Eval Procedure: Operation Date: 01/09/22 10:45 Proposed Procedures p Esophagogastroduodenoscopy - Russell Sullivan MD Date/Time: 01/09/22 09:55 Surgeon: Russell Sullivan MD Pre Op Diagnosis: dysphagia Patient Data Age: 51 Gender: F Height: 1.7 m Weight: 106.7 kg Last Vital Signs Temp 36.0 C L 01/09/22 09:51 Pulse 79 01/09/22 09:51 Resp 20 01/09/22 09:51 BP 134/97 H 01/09/22 09:51 Pulse Ox 100 01/09/22 09:51 Allergies Allergy/AdvReac Type Severity Reaction Status Date / Time levofloxacin AdvReac Mild UPSET Verified 01/09/22 09:50 STOMACH diclofenac AdvReac Itching Verified 01/09/22 09:50 Home Medications Medication Instructions Recorded Confirmed Type fluticasone propionate 2 spray INTRANASAL DAILY 10/02/20 12/29/21 History tizanidine 4 - 8 mg PO Q6-8H PRN 01/17/21 10/24/21 History ergocalciferol (vitamin D2) 1,250 1,250 mcg PO WEEKLY #13 cap 07/17/21 10/24/21 Rx mcg (50,000 unit) capsule cholestyramine-aspartame 4 gram 4 g PO DAILY #210 g 09/30/21 10/24/21 Rx oral powder estradiol 1 mg tablet 1 mg PO DAILY 09/30/21 10/24/21 History pantoprazole 40 mg tablet,delayed 40 mg PO DAILY #30 tablet 09/30/21 10/24/21 Rx release prochlorperazine maleate 10 mg 10 mg PO Q8H PRN #30 tablet 09/30/21 10/24/21 Rx tablet albuterol sulfate 90 mcg/actuation 2 puff INHALATION Q4-6H PRN #8.5 g 10/20/21 10/24/21 Rx aerosol inhaler estradiol 0.01 applic VAGINAL 3XW 12/29/21 12/29/21 History vibegron [Gemtesa] 75 mg PO DAILY 12/29/21 12/29/21 History hydroxyzine HCl 25 mg tablet 25 mg PO QID PRN #60 tablet 01/07/22 Rx Patient hx anesthesia problems: none Family hx anesthesia problems: none Results Review: All pre-operative results and documents have been reviewed as part of the pre-operative evaluation. [facility] Past Medical History Medical History Anxiety Fallen bladder GERD (gastroesophageal reflux disease) IBS (irritable bowel syndrome) Smoker Tobacco abuse Surgical History Surgical History History of bladder surgery Family History Family History Father Patient's father is in good health Mother Patient's mother is Sibling Diabetes mellitus Family history of blood dyscrasia Family history of pulmonary embolism Family history of hearing loss Social History Social History Smoking packs per day: 0.5 Smoking cigarettes per day: 10.0 Years smoked: 19 Smoking pack-years: 9.50 Smoking status: Current every day smoker Tobacco type: cigarettes Second hand tobacco smoke exposure: No Alcohol intake: never Drinks per week: 1 Substance use: never Substance use type: does not use Living arrangements: with family Gender identity (if verbalized by the patient): Female Spiritual care concerns: No Anes - Eval Final PreProcedure Day of Procedure 01/09/22 09:55 Patient weight: obese Heart: regular rate and rhythm Lungs: clear to auscultation Airway: Mallampati scale class II Neurological: alert and oriented Last oral intake: >/= 8 hours ASA classification: III Emergent: no Anesthetic plan: proceed Anesthesia type and monitoring: general GIVS and standard monitoring Results Review: All pre-operative results and documents have been reviewed as part of the pre-operative evaluation. Informed Consent: The patient's anesthetic plan and its attendant risks and benefits were discussed with the patient/family/POA. Questions were solicited and answers provided to the satisfaction of the patient/family/POA.
[2022-01-09] MEDS: LACTATED RINGERS 1,000 ML 150 ML IV CONT (10:06)
[2022-01-09 10:44] VITALS: BP 131/81; PULSE 67; RESP 14; O2SAT 99
[2022-01-09 10:54] VITALS: BP 141/87; PULSE 71; RESP 19; O2SAT 98
[2022-01-09 11:04] VITALS: BP 140/86; PULSE 69; RESP 22; O2SAT 100
== END 2022-01-09 11:18 | disposition home or self-care (01) ==
PROVIDERS: PCP Physician Assistant; Visit Provider Internal Medicine Gastroenterology
PROC: 0DJ08ZZ Inspection of Upper Intestinal Tract, Via Natural or Artificial Opening Endoscopic (ICD-10-PCS; CPT 43235; principal; 2022-01-09 10:45)
DX: R13.10 Dysphagia, unspecified (principal); K21.9 Gastro-esophageal reflux disease without esophagitis; K44.9 Diaphragmatic hernia without obstruction or gangrene; Z79.51 Long term (current) use of inhaled steroids; K58.9 Irritable bowel syndrome, unspecified; F41.9 Anxiety disorder, unspecified; F17.210 Nicotine dependence, cigarettes, uncomplicated; E66.9 Obesity, unspecified; Z68.36 Body mass index [BMI] 36.0-36.9, adult
CPT/HCPCS: 43239; 88305; J2704; J7120

== ENCOUNTER → 2022-01-26 09:03 | Outpatient (CLI) | payer BC, SELFPAY ==
--- NOTE | ~2022-01-26 | XR_ITS ---
EXAMINATION: XR barium swallow DATE: 01/26/2022 09:57 INDICATION: Dysphagia, unspecified. TECHNIQUE: The patient drank thick barium, gas-producing crystals, and thin barium. Fluoroscopy of th e hypopharynx and esophagus was performed. Fluoroscopy exposure time was 0.5 minutes. The total numbe r of images was 518. The dose-area product was 2.468 Gy-cm^2. COMPARISON: CT abdomen and pelvis 12/05/2021 FINDINGS: There is no mass or stricture of the esophagus. Esophageal motility is normal. There is no hiatal hernia. IMPRESSION: 1. Normal esophagram. Reviewed, dictated and finalized at location B. IMPRESSION: 1. Normal esophagram.
== END ==
PROVIDERS: PCP Physician Assistant; Visit Provider Internal Medicine Gastroenterology
DX: R13.10 Dysphagia, unspecified (principal)
CPT/HCPCS: 74220

== ENCOUNTER → 2022-02-24 08:01 | Outpatient (CLI) | payer BC, SELFPAY ==
--- NOTE | ~2022-02-24 | XR_ITS ---
XR foot RT min 3V DATE: 02/24/2022 08:26 INDICATION: Bilateral hammertoes TECHNIQUE: 3 weightbearing views COMPARISON: None FINDINGS: Slight posterior and moderate plantar calcaneal enthesopathy. Mild first metatarsophalangeal osteoarthritis and mild hallux valgus and bunion deformity Hammertoe deformity of the second digit. No fracture or dislocation, periosteal reaction or bone destruction.. IMPRESSION: Calcaneal enthesopathy Mild hallux valgus and bunion deformity Mild osteoarthritis at first metatarsophalangeal joint Hammertoe deformity of second digit Reviewed, dictated and finalized at location A.
--- NOTE | ~2022-02-24 | XR_ITS ---
XR foot LT min 3V DATE: 02/24/2022 08:26 INDICATION: Bilateral hammertoes TECHNIQUE: Weightbearing three-view examination COMPARISON: None FINDINGS: Slight posterior mild plantar calcaneal enthesopathy. Pes planus. Mild osteophyte is at first metatarsophalangeal joint. No fracture, dislocation, periosteal reaction or bone destruction. IMPRESSION: Calcaneal enthesopathy Mild osteophyte is at first metatarsophalangeal joint Pes planus Reviewed, dictated and finalized at location A.
== END ==
PROVIDERS: PCP Physician Assistant; Visit Provider Podiatrist Foot & Ankle Surgery
DX: M20.41 Other hammer toe(s) (acquired), right foot (principal); M20.42 Other hammer toe(s) (acquired), left foot; M77.31 Calcaneal spur, right foot; M77.32 Calcaneal spur, left foot; M20.11 Hallux valgus (acquired), right foot; M19.071 Primary osteoarthritis, right ankle and foot
CPT/HCPCS: 73630

== ENCOUNTER → 2022-04-06 08:55 | Outpatient (CLI) | payer BC, SELFPAY ==
--- NOTE | ~2022-04-06 | CT_ITS ---
EXAMINATION: CT sinus wo con DATE: 04/06/2022 09:33 INDICATION: Chronic sinusitis TECHNIQUE: Computed tomography (CT) of the paranasal sinuses was performed without intravenous contra st. The dose-length product was 273.81 mGy-cm. Automated exposure control and iterative reconstructio n technique were employed. COMPARISON: CT dated 10/07/2021 FINDINGS: Paranasal sinuses are pneumatized. No significant mucosal thickening, fluid or mucoperioste al reaction. There is a left-sided deon bullosa. Ostiomeatal units are patent. Rightward nasal sept al deviation. Mastoids are pneumatized. IMPRESSION: 1. No significant sinus disease. 2: Rightward nasal septal deviation. Reviewed, dictated and finalized at location A.
== END ==
PROVIDERS: PCP Physician Assistant; Visit Provider Otolaryngology
DX: J32.9 Chronic sinusitis, unspecified (principal); J34.2 Deviated nasal septum
CPT/HCPCS: 70486

== ENCOUNTER → 2022-05-05 09:59 | Outpatient (CLI) | payer BC, SELFPAY ==
--- NOTE | ~2022-05-05 | DEXA_ITS ---
Bone Density Report Name: JESSICA DAUGHERTY Age: 51 Sex: Female Ethnicity: White Date of : 1970 Indication: postmenopausal; screening for osteoporosis; height loss; Referring Provider: Sandra Zamora Study: Bone densitometry was performed. Exam Date: May 05, 2022 Accession number: [id number] Bone Density: Region BMD T-score Z-score Classification AP Spine (L1-L4) 1.098 0.5 1.4 Normal Femoral Neck (Left) 0.844 0.0 0.9 Normal Total Hip (Left) 1.061 1.0 1.6 Normal Femoral Neck (Right) 0.855 0.1 1.0 Normal Total Hip (Right) 1.000 0.5 1.1 Normal Total Hip Mean 1.031 0.8 1.4 Normal World Health Organization criteria for BMD impression classify patients as: Normal (T-score at or above -1.0), Osteopenia (T-score between -1.0 and -2.5), or Osteoporosis (T-score at or below -2.5). 10-year Fracture Risk: FRAX not reported because: All T-scores for Spine Total, Hip Total, Femoral Neck at or above -1.0 Treated for osteoporosis Clinical Information Provided by Patient: Smokes Is being treated for osteoporosis Has used the following medications: HRT (i.e. estrogen/hormone therapy), Vitamin D, Calcium Patient maximum height was 67 Menopause Age: 50 No regular weight bearing exercise Onset of menses at age 10 Number of children 2 Impression: The patient has normal bone mass. The patient has risk factors, including: smoking. Discussion: It is important to ask patients whether they are taking their medications and to encourage continued and appropriate compliance with their osteoporosis therapies to reduce fracture risk. It is also important to review their risk factors and encourage appropriate calcium and vitamin D intakes, exercise, fall prevention and other lifestyle measures. Follow-Up: Consider a repeat BMD and Vertebral Fracture Assessment (VFA) exam in 2 years or sooner if medically necessary, to reassess this patient's status. Reported by: CANDY on 05/05/2022 10:33:00 AM. Reviewed, dictated and finalized at location ATram LAM
== END ==
PROVIDERS: PCP Physician Assistant; Visit Provider Advanced Practice Midwife
DX: Z78.0 Asymptomatic menopausal state (principal)
CPT/HCPCS: 77080

== ENCOUNTER → 2022-08-13 09:33 | Outpatient (CLI) | payer BC, SELFPAY ==
--- NOTE | ~2022-08-13 | XR_ITS ---
XR foot RT min 3V DATE: 08/13/2022 09:48 INDICATION: Bunion, hammertoe surgery one month ago. Follow-up. TECHNIQUE: 3 weightbearing views of right foot COMPARISON: 02/24/2022 right foot FINDINGS: Mild to moderate plantar calcaneal enthesopathy without associated erosive change or perios titis. Slight posterior calcaneal enthesopathy. These appear stable since 02/24/2022. Status post osteotomy at the proximal phalanx of the right great toe with staple at the medial base. There is interval surgical resection of the heads of the proximal phalanges of the second through fou rth digits with resolution of any hammertoe deformities. IMPRESSION: Status post osteotomy at proximal phalanx of first digit and heads of proximal phalanges of second through fourth digits Reviewed, dictated and finalized at location B. GER ACCESS
== END ==
PROVIDERS: PCP Physician Assistant; Visit Provider Podiatrist Foot & Ankle Surgery
DX: M21.611 Bunion of right foot (principal)
CPT/HCPCS: 73630

== ENCOUNTER → 2022-10-29 08:51 | Outpatient (CLI) | payer BC, SELFPAY ==
--- NOTE | ~2022-10-29 | XR_ITS ---
EXAMINATION: XR foot LT min 3V DATE: 10/29/2022 09:26 INDICATION: Left foot hammertoe. TECHNIQUE: 3 views of left foot standing were obtained. COMPARISON: Left foot radiograph 02/24/2022 FINDINGS: Pes planus is noted. No fracture. There is lateral subluxation of second metatarsal with re spect to the intermediate cuneiform. There is mild osteoarthritis of first metatarsophalangeal joint, some of the interphalangeal joints, and talonavicular joint. There is an enthesophyte at posterior a spect of calcaneal tuberosity. IMPRESSION: 1. Lateral subluxation of second metatarsal suspicious for Lisfranc ligament tear. 2. Mild polyarticular osteoarthritis. Reviewed, dictated and finalized at location A. RAL PRE NEED CONSULTANT IMPRESSION: 1. Lateral subluxation of second metatarsal suspicious for Lisfranc ligament te ar. 2. Mild polyarticular osteoarthritis.
--- NOTE | ~2022-10-29 | XR_ITS ---
EXAMINATION: XR foot RT min 3V DATE: 10/29/2022 09:26 INDICATION: Right foot hammertoe post care. TECHNIQUE: 3 views of right foot standing were obtained. COMPARISON: Right foot radiographs 08/13/2022, 02/24/2022 FINDINGS: Pes planus is noted. There is an osteotomy of first proximal phalanx with staple fixation. There is 3 mm lateral displacement of the distal fracture fragment. The staple has backed out by 3 mm . There are changes of resection of the heads of the second-fourth proximal phalanges. There is mild osteoarthritis of some of the interphalangeal joints. There are enthesophytes at the posterior and pl claudia aspects of calcaneal tuberosity. IMPRESSION: 1. Osteotomy of first proximal phalanx with interval movement of the bone fragments and backing out o f the staple. 2. Mild polyarticular osteoarthritis. 3. Pes planus. Reviewed, dictated and finalized at location A. L MAKER IMPRESSION: 1. Osteotomy of first proximal phalanx with interval movement of the bone fragm ents and backing out of the staple. 2. Mild polyarticular osteoarthritis. 3. Pes planus.
== END ==
PROVIDERS: PCP Physician Assistant; Visit Provider Podiatrist Foot & Ankle Surgery
DX: Z48.89 Encounter for other specified surgical aftercare (principal); M19.071 Primary osteoarthritis, right ankle and foot; M19.072 Primary osteoarthritis, left ankle and foot
CPT/HCPCS: 73630

== ENCOUNTER 2023-07-27 08:24 | Outpatient (CLI) | payer BC, SELFPAY ==
--- NOTE | 2023-07-27 | ECG_ITS ---
Measurements Intervals [place] Rate: 82 P: 64 MD: 158 QRS: 35 QRSD: 84 T: 63 QT: 371 QTc: 434 Interpretive Statements SINUS RHYTHM INCOMPLETE RIGHT BUNDLE BRANCH BLOCK BORDERLINE ECG NO PREVIOUS ECG AVAILABLE FOR COMPARISON Electronically Signed On 07-27-2023 9:44:32 CAREER DISCOVERY TEACHER by James Ennis D.O.
[2023-07-27 09:08] LABS: Basophils Percent Auto 0.4 % (0.2-1.2); Eosinophils Absolute Auto 0.2 K/mm3 (0-0.3); Eosinophils Percent Auto 1.9 % (0-4.4); Hematocrit 42.6 % (37.0-47.0); Hemoglobin 13.5 g/dL (12.0-15.0); Immature Granulocyte Absolute 0.04 K/mm3 (0.00-0.031); Immature Granulocyte Percent A 0.4 % (0-0.5); Lymphocytes Absolute Auto 1.66 K/mm3 (0.9-3.2); Lymphocytes Percent Auto 14.9 % (18.3-44.2); Mean Corpuscular HGB Conc 31.7 g/dl (32-36); Mean Corpuscular Hemoglobin 29.2 pg (26-34); Mean Platelet Volume 10.6 fl (7.4-10.4); Monocytes Absolute Auto 0.6 K/mm3 (0.1-0.6); Monocytes Percent Auto 5.2 % (2.6-8.5); Neutrophils Absolute Auto 8.6 K/mm3 (1.3-6.7); Neutrophils Percent Auto 77.2 % (45.5-73.1); Platelet Count Result 258 k/mm3 (150-375); Red Blood Count 4.63 M/mm3 (4.2-5.4); Red Cell Distribution Width 13.4 % (11.5-14.5); White Blood Count 11.1 K/mm3 (4.5-10.0)
[2023-07-27 09:24] LABS: Alanine Aminotransferase 16 U/L (6-35); Albumin Level 4.4 g/dL (3.5-5.1); Alkaline Phosphatase 81 U/L (38-126); Anion Gap 8 mmol/L (8-16); Aspartate Amino Transferase 19 U/L (14-36); Bilirubin,Total 0.5 mg/dL (0.2-1.3); Blood Urea Nitrogen 15 mg/dL (7-17); Carbon Dioxide 26 mmol/L (22-30); Chloride 105 mmol/L (98-107); Estimated Glomerular Filt Rate > 60; Glucose 114 mg/dL (65-110); Potassium 3.8 mmol/L (3.4-5.0); Sodium 139 mmol/L (137-145)
== END 2023-07-27 08:25 | disposition home or self-care (01) ==
LOC: ANHLAB 08:28
PROVIDERS: PCP Physician Assistant; Visit Provider Podiatrist Foot & Ankle Surgery
DX: Z01.89 Encounter for other specified special examinations (principal); I45.10 Unspecified right bundle-branch block; R93.1 Abnormal findings on diagnostic imaging of heart and coronary circulation
CPT/HCPCS: 36415; 80053; 85025; 93005

== ENCOUNTER 2023-08-16 09:15 | Outpatient (CLI) | payer BC, SELFPAY ==
--- NOTE | ~2023-08-16 | XR_ITS ---
EXAMINATION: XR chest 2V 08/16/2023 09:38 INDICATION: Productive cough PROCEDURE: 2 view chest COMPARISON: 10/13/2016 FINDINGS: The lungs are clear. The cardiomediastinal silhouette is within normal limits. There are no pleural effusions. There is no pneumothorax suspected. IMPRESSION: 1: NO ACUTE CARDIOPULMONARY DISEASE. Reviewed, dictated and finalized at location B. ER EXAMINER
== END 2023-08-16 09:16 | disposition home or self-care (01) ==
PROVIDERS: PCP Physician Assistant; Visit Provider Physician Assistant
DX: R05.9 Cough, unspecified (principal)
CPT/HCPCS: 71046

== ENCOUNTER 2024-03-03 12:22 | Outpatient (CLI) | payer BC, SELFPAY ==
--- NOTE | ~2024-03-03 | CT_ITS ---
EXAMINATION: CT brain wo/w con DATE: 03/03/2024 13:06 INDICATION: Headache, unspecified. TECHNIQUE: Computed tomography (CT) of the head was performed without and with 100 mL Omnipaque 350 i ntravenous contrast. The mA was adjusted according to patient size. Iterative reconstruction techniqu e was employed. The dose-length product was 1199.14 mGy-cm. COMPARISON: None FINDINGS: There are scattered areas of low attenuation in the cerebral white matter. There is no intr acranial hemorrhage, acute infarction, or abnormal intracranial mass lesion. The ventricles are monet l in size. The paranasal sinuses are clear. The mastoid air cells are normal. The orbits are normal. IMPRESSION: 1. Mild nonspecific cerebral white matter disease, which likely represents chronic small vessel ische butch disease. Reviewed, dictated and finalized at location A. IMPRESSION: 1. 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
== END 2024-03-03 12:23 ==
LOC: MICIMG 12:23
PROVIDERS: PCP Otolaryngology; Visit Provider Internal Medicine
DX: R51.9 Headache, unspecified (principal); G89.29 Other chronic pain
CPT/HCPCS: 70470; Q9967

== ENCOUNTER 2024-04-14 10:04 | Outpatient (CLI) | payer BC, SELFPAY ==
--- NOTE | ~2024-04-14 | MM_ITS ---
EXAMINATION: MM screening [facility] HISTORY: Screening TECHNIQUE: Craniocaudal and mediolateral oblique 3-D tomosynthesis images were obtained and synthetic 2-D images were generated. CAD analysis was submitted and interpreted. COMPARISON: 08/04/2021 BREAST PARENCHYMAL COMPOSITION: There are scattered areas of fibroglandular density. FINDINGS: There is no evidence of suspicious mass, calcification, or architectural distortion to sugg est malignancy in either breast. There has been no suspicious interval change. IMPRESSION: 1. No mammographic evidence of malignancy. 2. Recommend routine screening mammography in one year. BI-RADS Category 1: Negative Reviewed, dictated and finalized at location B.
== END 2024-04-14 10:05 ==
LOC: MICIMG 10:05
PROVIDERS: Visit Provider Obstetrics & Gynecology
DX: Z12.31 Encounter for screening mammogram for malignant neoplasm of breast (principal)
CPT/HCPCS: 77063; 77067

== ENCOUNTER 2024-04-20 07:33 | Outpatient (CLI) | payer BC, SELFPAY ==
--- NOTE | ~2024-04-20 | CT_ITS ---
CT of the Abdomen and Pelvis: Indication: Abdominal pain Technique: 2.5 mm axial scans were obtained through the abdomen and pelvis following intravenous adm inistration of 100 cc of Omnipaque 350. Dose reduction technique was used on this scan by utilizing a utomated exposure control and iterative reconstruction technique. The dose-length product (DLP) was 1 094.51 mGy-cm. COMPARISON: 12/05/2021 Findings: Scans through the lung bases demonstrate mild atelectatic change at the right middle lobe and lingula.. The liver, spleen, pancreas, adrenals and kidneys are within normal limits. Cholecystectomy clips are present. There are atherosclerotic calcifications of the aorta. No lymphadenopathy. No bowel obstruction or bowel wall thickening. There is no evidence to suggest acute appendicitis. Images through the pelvis were performed. Urinary bladder unremarkable. No pelvic mass seen. No ascit es. Impression: No significant abnormalities seen. Reviewed, dictated and finalized at [facility]. Impression: No significant abnormalities seen.
== END 2024-04-20 07:34 | disposition home or self-care (01) ==
PROVIDERS: PCP Internal Medicine; Visit Provider Obstetrics & Gynecology
DX: R10.2 Pelvic and perineal pain (principal)
CPT/HCPCS: 74177; Q9967

== ENCOUNTER 2024-05-30 02:38 | Day surgery (SDC) | payer BC, SELFPAY ==
[2024-05-08 14:36] VITALS: BMI 34.8
[2024-05-30 10:03] VITALS: BP 138/86; PULSE 89; RESP 19; TEMP 36; O2SAT 98
[2024-05-30] MEDS: LACTATED RINGERS 1,000 ML 150 ML IV CONT (10:12)
--- NOTE | 2024-05-30 10:17 | WPDANESEPPF ---
Anes - Initial Pre Proc Eval Procedure: Operation Date: 05/30/24 11:00 Proposed Procedures p Esophagogastroduodenoscopy - Everardo Hoyos MD Date/Time: 05/30/24 10:17 Surgeon: Everardo Hoyos MD Pre Op Diagnosis: Dysphagia, GERD Patient Data Age: 53 Gender: F Height: 1.68 m Weight: 90.5 kg Last Vital Signs Temp 36.0 C L 05/30/24 10:03 Pulse 89 05/30/24 10:03 Resp 19 05/30/24 10:03 BP 138/86 05/30/24 10:03 Pulse Ox 98 05/30/24 10:03 O2 Del Method Room Air 05/30/24 10:03 Allergies Allergy/AdvReac Type Severity Reaction Status Date / Time levofloxacin AdvReac Mild UPSET Verified 05/30/24 10:01 STOMACH diclofenac AdvReac Itching Verified 05/30/24 10:01 Home Medications Medication Instructions Recorded Confirmed Type fluticasone propionate 50 1 spray intranasal DAILY 10/02/20 05/30/24 History mcg/actuation nasal spray,suspension estradiol 1 mg tablet (Estrace) 1 mg PO DAILY 09/30/21 05/30/24 History vibegron 75 mg tablet (Gemtesa) 75 mg PO DAILY 12/29/21 05/30/24 History piroxicam 20 mg capsule 20 mg PO DAILY 06/17/22 05/30/24 History progesterone micronized 100 mg 100 mg PO QAM 06/17/22 05/30/24 History capsule hydroxyzine HCl 25 mg tablet 25 mg PO QID PRN itching #60 tabs 12/07/22 05/30/24 Rx azelastine 205.5 mcg (0.15 %) 2 spray intranasal BID 04/13/23 05/30/24 History nasal spray (Astepro Allergy) albuterol sulfate 90 mcg/actuation See Rx Instructions .Route 03/03/24 05/30/24 Rx aerosol inhaler .COMPLEX #9 grams prochlorperazine maleate 10 mg 10 mg PO Q8H PRN nausea and 03/30/24 05/30/24 Rx tablet (Compazine) vomiting 3 months #30 tabs pantoprazole 40 mg tablet,delayed 40 mg PO BID #60 tabs 05/04/24 05/30/24 Rx release atogepant 10 mg tablet (Qulipta) 10 mg PO DAILY 05/08/24 05/30/24 History cyclobenzaprine 5 mg tablet 5 mg PO DAILY PRN Pain 05/08/24 05/30/24 History estradiol 10 mcg vaginal tablet See Rx Instructions .Route .COMPLEX 05/08/24 05/30/24 History (Yuvafem) levocetirizine 5 mg tablet 5 mg PO HS 05/08/24 05/30/24 History montelukast 10 mg tablet 10 mg PO DAILY 05/08/24 05/30/24 History alprazolam 0.25 mg tablet (Xanax) 0.25 mg PO TID PRN anxiety #30 tabs 05/17/24 05/30/24 Rx cholestyramine (with sugar) 4 gram See Rx Instructions .Route 05/29/24 05/30/24 Rx oral powder .COMPLEX #378 grams Patient hx anesthesia problems: none Family hx anesthesia problems: none Results Review: All pre-operative results and documents have been reviewed as part of the pre-operative evaluation. [facility] Past Medical History Medical History Anxiety Fallen bladder GERD (gastroesophageal reflux disease) IBS (irritable bowel syndrome) Smoker Tobacco abuse Surgical History Surgical History History of bladder surgery Family History Family History Father Patient's father is in good health Mother Patient's mother is Sibling Diabetes mellitus Family history of blood dyscrasia Family history of pulmonary embolism Family history of hearing loss Social History Social History Smoking packs per day: 0.5 Smoking cigarettes per day: 10.0 Years smoked: 19 Smoking pack-years: 9.50 Smoking status: Current every day smoker Tobacco type: cigarettes Second hand tobacco smoke exposure: No Alcohol intake: never Drinks per week: 1 Substance use: never Substance use type: does not use Lack of Transportation: No Lack of Food: Never True Current Housing: I Have Housing Concerned About Future Housing: No Difficulty Paying Gas/Electric Bills: No Difficulty Paying for Meds: No Currently Unemployed: No Education: High School Diploma/GED Difficulty w/ Childcare or Family C
--- NOTE | 2024-05-30 10:58 | WPDHPUPDATE1 ---
History and Physical Update Update Date/Time: 05/30/24 10:58 History and Physical has been reviewed, including an updated exam of the patient. There are NO changes in the patient's condition. Risks, benefits, and alternatives have been discussed and questions answered. Patient agrees to proceed with procedure.
[2024-05-30 11:04] VITALS: BP 134/77; PULSE 85; RESP 16; O2SAT 96
[2024-05-30 11:14] VITALS: BP 132/78; PULSE 93; RESP 19; O2SAT 98
[2024-05-30 11:24] VITALS: BP 140/84; PULSE 90; RESP 17; O2SAT 96
== END 2024-05-30 11:40 | disposition home or self-care (01) ==
PROVIDERS: PCP Internal Medicine; Referring Provider Nurse Practitioner; Visit Provider Internal Medicine Gastroenterology
PROC: 0DJ08ZZ Inspection of Upper Intestinal Tract, Via Natural or Artificial Opening Endoscopic (ICD-10-PCS; CPT 43235; principal; 2024-05-30 11:00)
DX: R13.10 Dysphagia, unspecified (principal); K21.00 Gastro-esophageal reflux disease with esophagitis, without bleeding; Z79.51 Long term (current) use of inhaled steroids; F41.9 Anxiety disorder, unspecified; F17.210 Nicotine dependence, cigarettes, uncomplicated; E66.9 Obesity, unspecified; Z68.32 Body mass index [BMI] 32.0-32.9, adult
CPT/HCPCS: 43239; 43450; 88305; J2704; J7120

== ENCOUNTER 2025-02-14 10:28 | Outpatient (CLI) | payer BC, SELFPAY ==
--- NOTE | ~2025-02-14 | XR_ITS ---
XR abdomen/kub 1V Ordering provider: Kimberly Fabian History: . Kidney stone . Comparison: December 05, 2021 FINDINGS: BOWEL: Nonobstructive bowel gas pattern. ORGANOMEGALY: None. SIGNIFICANT PATHOLOGIC CALCIFICATIONS: Possible calcification seen in the level of L3 on the right si de. Fecal material is overlapping the kidneys. OTHER: No free air is seen under the diaphragm. Spinal stimulator seen in the right lumbar area. Degenerative spine. IMPRESSION: NO ACUTE ABDOMINAL FINDINGS. Possible stone in the right paraspinal area. Noncontrast CT is better for evaluation. Reviewed, dictated and finalized at location A. IMPRESSION: NO ACUTE ABDOMINAL FINDINGS. Possible stone in the right paraspinal area. Noncontrast CT is better for evalu ation.
--- OUTSIDE RECORDS SUMMARY | 2025-02-14 10:33 | XMS_ITS | Patient Health Record ---
Author Organization [facility] ([address]) Address [address] [place] [address] Care Team Providers Care Piggyback Clerk Name Role Phone Nikolas Keller Primary Care Provider UnavailRaquel Young Unavailable [phone] Juancho Helton Unavailable Unavailable [facility], Provider Unavailable Unavailab le Allergies Allergen (clinical drug ingredient) Drug/Non Drug Allergy documented on EMR Reaction Allergy Type Onset Date Status Diclofenac other reaction Drug Allergy A ctive Levaquin stomach upset Drug Allergy Act eric Reason For Referral No Information Medications Medication SIG (Take, Route, Frequency, Duration) Notes Start Date End Date Status Zoloft 100 MG 1 tablet Orally Once a day Active ALPRAZolam 12/05/2024 Active Prevalite 4 GM/DOSE as directed orally 2 times a day Active Montelukast Sodium 10 MG 1 tablet Orally Once a day Active Adderall 20 MG 1 tablet Orally Twice a day Active FLONASE 0.05 mg/inh 2 spray(s) intranasally (avoid nasal septum) twice daily for 30 days Active Gemtesa 75 MG 1 tab(s) orally once a day for 30 day(s) Active Flonase Allergy Relief 50 MCG/ACT 2 spray(s) intranasally (avoid nasal septum) once a day for 30 day(s) Active Azelastine HCl 0.1 % 2 puffs in each nostril Nasally Twice a day for 90 days 07/31/2024 Active Levocetirizine Dihydrochloride 5 MG 1 tab(s) orally once a day (in the evening) for 90 days Active Piroxicam 20 MG 1 cap(s) orally once a day for 30 day(s) Active Olopatadine HCl 0.7% 1 GTT in each eye ONCE A DAY for 30 days *Please review and pick correct strength-formulat ion from [employer] options. If intended option is not shown, discontinue and re-order from Quick Search* 12/07/2023 Active Pantoprazole Sodium 40 MG 1 tab(s) orally once a day for 30 day(s) Active Progesterone 100 MG 2 cap(s) orally once a day (at bedtime) for 12 day(s) takes one tablet daily Active Estradiol 1 MG 1 tab(s) orally once a day for 30 day(s) Active Social History Tobacco Use: Social History Observation Description Date Details (start date - stop date) Light tobacco s moker NA - NA Sex Assigned At : Social History Observation Description Sex Assigned At Female Smoking Smart Form: Question Answer Notes Are you a: light tobacco smoker Problems Problem Type SNOMED Code ICD Code Onset Dates Problem Status W/U Status Risk Notes Problem Chronic allergic conjunctivitis (54769292) Other chronic allergic conjunctivitis (H10.45) Active confirmed Problem Allergic rhinitis caused by pollen (disorder) (48246444) Allergic rhinitis due to pollen (J30.1) Active confirmed Problem Allergic rhinitis (63252455) Other allergic rhinitis (J30.89) Active confirmed Problem Chronic sinusitis (65724113) Chronic sinusitis, unspecified (J32.9) Active confirmed Problem Gastro-esophageal reflux disease without esophagitis (301195946) Gastro-esophageal reflux disease without esophagitis (K21.9) Active confirmed Problem Pruritus (511299534) Pruritus, unspecified (L29.9) Active confirmed Problem Allergic rhinitis caused by animal hair and dander (297731625567811) Allergic rhinitis due to animal (cat) (dog) hair and dander (J30.81) Active confirmed Vital Signs Oximetry 98 % 12/05/2024 Blood pressure diastolic 86 mm Hg 12/05/2024 Height 66 in 12/05/2024 Blood pressure systolic 134 mm Hg 12/05/2024 Weight 215.0 lbs 12/05/2024 BMI 34.7 kg/m2 12/05/2024 Encounters Encounter Location Date Provider Diagnosis NOAH Reynolds [address] [place] [address] 02/26/2024 Provider [facility]-Migration Allergic rhinitis due to pollen J30.1 and Other chronic allergic conjunctivitis H10.[address] [address] 12/05/2024 Raquel Jim Allergic rhinitis du e to pollen J30.1 ; Dermatitis, unspecified L30.9 ; Chronic sinusitis, unspecified J32.9 ; Allergic rhinitis due to animal (cat) (dog) hair and dander J30.81 ; Other allergic rhinitis J30.89 and Other chronic allergic conjunctivitis H10.[address] [address] 03/15/2024 Raquel Jim [address] [address] 07/31/2024 Raquel Jim Allergic rhinitis du e to pollen J30.[address] [address] 07/31/2024 Raquel Jim Allergic rhinitis du e to pollen J30.[address] [address] 11/13/2024 Raquel Jim Allergic rhinitis du e to pollen J30.1 Assessments Encounter Date Diagnosis (ICD Code) Assessment Notes Treatment Notes Treatment Clinical Notes Section Notes 02/26/2024 Allergic rhinitis due to pollen (ICD-10 - J30.1) 07/31/2024 Allergic rhinitis due to pollen (ICD-10 - J30.1) 07/31/2024 Allergic rhinitis due to pollen (ICD-10 - J30.1) 11/13/2024 Allergic rhinitis due to pollen (ICD-10 - J30.1) 12/05/2024 Allergic rhinitis due to pollen (ICD-10 - J30.1) Marco clearly suffers from atopic disease based upon our skin testing and clinical history. Accordingly, we have introduced a new, aggressive medication regimen, discussed nasal washes and allergy-specific avoidance measures. We also discussed adjunctive therapies including subcutaneous, specific allergen immunotherapy as relates to the treatment and prevention of atopic disease. At this time, she is not interested in immunotherapy and feels benefit from antihistamines and nasal sprays. 12/05/2024 Dermatitis, unspecified (ICD-10 - L30.9) unclear cause for dry skin above her lips. Skin is clear today. We discussed applying Vaseline while skin is still wet after showering. Recommend application of CeraVe or Vanicream during the day. 12/05/2024 Chronic sinusitis, unspecified (ICD-10 - J32.9) History of sinus surgery and multiple sets of tubes. Recommend treating atopic disease and monitoring for improvement. 12/05/2024 Allergic rhinitis due to animal (cat) (dog) hair and dander (ICD-10 - J30.81) Follow allergen avoidance, meds and consider SCIT as an adjunctive treatment to current regimen 12/05/2024 Other allergic rhinitis (ICD-10 - J30.89) Follow allergen avoidance, meds and consider SCIT as an adjunctive treatment to current regimen 02/26/2024 Other chronic allergic conjunctivitis (ICD-10 - H10.45) 12/05/2024 Other chronic allergic conjunctivitis (ICD-10 - H10.45) Given ocular signs and symptoms I encouraged allergy avoidance measures and meds as above. If symptoms persist, consider adding additional medications including intraocular antihistamine/mast cell stabilizer, PRN 12/05/2024 Other Plan Of Treatment Next Appt Details Provider Name:Raquel coates, 12/04/2025 09:30:00 AM, [address] [facility], [address], [address], Insurance Providers Payer Name Payer Address Payer Phone Subscriber Number Group Number Insured Name Patient Relationship to Insured Coverage Start Date Coverage End Date [facility] [address] [place] [address] [id number] Matt Judd Spouse - patient is the spouse of the insured 4 Medical (General) History Medical History History ICD Code Hormonal Replacement/Menopause Gastro-esophageal reflux disease without esophagitis K21.9 Joint inflammation Surgical History Surgery Date(Month/Year) Jaw Surgery 2021 Right ear tube 2021 Right deviation surgery to nostril 2021 Right foot hammer toe surgery 2021 Bladder surgery/has box that controls bl adder 2020 Right ear tube 11/2022 bilateral feet 09/2023 right ankle surgery
--- OUTSIDE RECORDS SUMMARY | 2025-02-14 10:33 | XMS_ITS | Clinical Summary ---
Author Organization [facility] Care Team Providers Care Senior Data Scientist Name Role Phone Unavailable Primary Care Provider Unavailabl e Allergies No known active allergies Medications pantoprazole (PROTONIX) 20 MG Tablet Delayed Response Take by mouth. 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) Social History Tobacco Use Types Packs/Day Years Used Date Smoking Tobacco: Never Assessed Comments Unknown Sex and Gender Information Value Date Recorded Sex Assigned at Not on file Legal Sex Female 10:24 PM CDT Gender Identity Not on file Sexual Orientation Not on file Plan of Treatment Health Maintenance Due Date Last Done Comments Hepatitis C Virus (HCV) Screening 1970 TdaP Immunization 1970 Hepatitis B Immunization (1 of 3 - 19+ 3-dose series) 12/26/1987 Pap Smear 1989 Cervical Cancer Screening (CCS) 1998 HPV/Cotest 1998 Colonoscopy 2013 Colorectal Cancer Screening 2013 Cologuard 2018 Immunochemical Fecal Occult Blood 2018 Mammogram 2018 Pneumococcal Immunization (5 0+ years) (1 of 1 - PCV) 2018 Zoster Immunization (1 of 2) 2018 Influenza Immunization (#1) 2024 SARS-COV-2 Immunization ( - 2023-25 season) 2024 Respiratory Syncytial Virus (RSV) Immunization (Adult) (1 - 1-dose 75+ series) 12/26/2043 Meningococcal Immunization (ACWY) Aged Out No longer eligible based on patient's age to complete this topic Pneumococcal Immunization Combined Aged Out No longer eligible based on patient's age to complete this topic Rotavirus Immunization Aged Out No lo nger eligible based on patient's age to complete this topic
--- OUTSIDE RECORDS SUMMARY | 2025-02-14 10:33 | XMS_ITS ---
Author Organization [facility] ([address]) Address [address] [place] [address] Care Team Providers Care Japanese Professor Name Role Phone Arianna, Nikolas Primary Care Provider Unavailabl Raquel Espino Unavailable [phone] Juancho Helton Unavailable Unavailable [facility], Provider Unavailable Unavailab le Allergies Allergen (clinical drug ingredient) Drug/Non Drug Allergy documented on EMR Reaction Allergy Type Onset Date Status Diclofenac other reaction Drug Allergy A ctive Levaquin stomach upset Drug Allergy Act eric REASON FOR VISIT [facility] To [facility] Conversion Encounter Medications Medication SIG (Take, Route, Frequency, Duration) Notes Start Date End Date Status Olopatadine HCl 0.7% 1 GTT IN EACH AFFECTED EYE ONCE A DAY for 30 DAYS *Please review and pick correct strength-formulat ion from [facility] options. If intended option is not shown, discontinue and re-order from Quick Search* 12/07/2023 Active Pantoprazole Sodium 40 MG 1 tab(s) orally once a day for 30 day(s) Active ASTELIN 137 MCG/INH 2 SPRAY(S), EACH NOSTRIL INTRANASALLY TWICE A DAY for 30 DAYS *Please review for potential replacement for e-prescription and drug interaction check* Active Levocetirizine Dihydrochloride 5 MG 1 tab(s) orally once a day (in the evening) for 90 days Active Flonase Allergy Relief 50 MCG/ACT 2 spray(s) intranasally (avoid nasal septum) twice daily for 30 day(s) Active Flonase Allergy Relief 50 MCG/ACT 2 spray(s) intranasally (avoid nasal septum) once a day for 30 day(s) Active Progesterone 100 MG 2 cap(s) orally once a day (at bedtime) for 12 day(s) takes one tablet daily Active Gemtesa 75 MG 1 tab(s) orally once a day for 30 day(s) Active ALBUTEROL (EQV-PROVENTIL HFA) 90 MCG/INH 2 PUFF(S) INHALED EVERY 6 HOURS uses prn *Please review for potential replacement for e-prescription and drug interaction check* Active Estradiol 1 MG 1 tab(s) orally once a day for 30 day(s) Active Prevalite 4 GM/DOSE as directed orally 2 times a day Active Piroxicam 20 MG 1 cap(s) orally once a day for 30 day(s) Active Social History Sex Assigned At : Social History Observation Description Sex Assigned At Female Encounters Encounter Location Date Provider Diagnosis [address] [address] 02/26/2024 Provider Pratibha Allergic rhinitis due to pollen J30.1 and Other chronic allergic conjunctivitis H10.45 Assessments Encounter Date Diagnosis (ICD Code) Assessment Notes Treatment Notes Treatment Clinical Notes Section Notes 02/26/2024 Allergic rhinitis due to pollen (ICD-10 - J30.1) 02/26/2024 Other chronic allergic conjunctivitis (ICD-10 - H10.45) Plan Of Treatment Medication Medication Name Sig Start Date Stop Date Notes Olopatadine HCl 0.7% 1 GTT IN EACH AFFECTED EYE ONCE A DAY for 30 DAYS 12/07/2023 *Please review and pick correct strength-formulatio n from [employer] options. If intended option is not shown, discontinue and re-order from Quick Search* ASTELIN 137 MCG/INH 2 SPRAY(S), EACH NOSTRIL INTRANASALLY TWICE A DAY for 30 DAYS *Please review for potential replacement for e-prescription and drug interaction check* Levocetirizine Dihydrochloride 5 MG 1 tab(s) orally once a day (in the evening) for 90 days Flonase Allergy Relief 50 MCG/ACT 2 spray(s) intranasally (avoid nasal septum) twice daily for 30 day(s) Next Appt Details Provider Name:Raquel coates, 12/04/2025 09:30:00 AM, [address] [facility], [address], [place], [address], Progress Notes * Tere JUDDB:1970 (54 yo F)Acc No.[id number]:02/26/2024 Patient: Marco TINOCO Provider: Lori erwin Migration :1970 A ge:53 Y S ex:Female Date:02/26/2024 Address: [address] [facility] Pcp:Nikolas Keller Subjective: * Chief Complaints: * 1 . [facility] To [facility] Conversion Encounter. * Medical History: * Medications: T aking Prevalite 4 GM/DOSE Powder as directed orally 2 times a day , Taking Piroxicam 20 MG Capsule 1 cap(s) orally once a day , Taking Gemtesa 75 MG Tablet 1 tab(s) orally once a day , Taking ALBUTEROL (EQV-PROVENTIL HFA) 90 MCG/INH AEROSOL 2 PUFF(S) INHALED EVERY 6 HOURS , Notes to Pharmacist: uses prn *Please review for potential replacement for e-prescription and drug interaction check*, Taking Flonase Allergy Relief 50 MCG/ACT Suspension 2 spray(s) intranasally (avoid nasal septum) once a day , Taking Progesterone 100 MG Capsule 2 cap(s) orally once a day (at bedtime) , Notes to Pharmacist: takes one tablet daily, Taking Estradiol 1 MG Tablet 1 tab(s) orally once a day , Taking Pantoprazole Sodium 40 MG Tablet Delayed Release 1 tab(s) orally once a day * Allergies: L evaquin: stomach upset, Diclofenac: other reaction. Objective: * Vitals: Assessment: * Assessment: 1. A llergic rhinitis due to pollen - J30.1 (Primary) 2 . O ther chronic allergic conjunctivitis - H10.45 Plan: * Treatment: 2. O ther chronic allergic conjunctivitis Start Olopatadine HCl SOLUTION, 0.7%, 1 GTT, IN EACH AFFECTED EYE, ONCE A DAY, 30 DAYS, 1, Refills 5, Notes to Pharmacist: *Please review and pick correct strength-formulation from [facility] options. If intended option is not shown, discontinue and re-order from Quick Search*. * Billing Information: * Visit Code: * Procedure Codes: * Electronic signature of Mahamed MERCADO-Migration on 02/14/2025 at 10:33 AM CDT Sign off status: Pending * Provider: Lori erwin Migration Date: 02/26/2024 Generated for Louise carroll/Michael/Sherry on: 02/14/2025 10:33 AM CDT
--- OUTSIDE RECORDS SUMMARY | 2025-02-14 10:33 | XMS_ITS | Data Portability ---
Author Organization [place] [facility] [employer], Main Office Address [address] [place] [address] Care Team Providers Care Consumer Banker Name Role Phone BAO BAEZ Primary Care Provider [phone] BAO BAEZ Referring Provider [phone] EVA DUNCAN Primary Care Provider Assessment Encounter Date Assessment Date Assessment LastModified by Organization Details LastModified Time 2024 2024 This note is dictated and transcribed by [employer]. Medical Asst variances may occur. Despite proofreading, typographical errors may occur. Occasional wrong-word or '[id number]' substitutions may have occurred due to the inherent limitations of voice recording. Read the chart carefully and recognize, using context, where substitutions have occurred. [email or web address] Not available 12/27/2024 08:51:58 01/15/2025 01/15/2025 This note is dictated and transcribed by [employer]. Medical Asst variances may occur. Despite proofreading, typographical errors may occur. Occasional wrong-word or '[id number]' substitutions may have occurred due to the inherent limitations of voice recording. Read the chart carefully and recognize, using context, where substitutions have occurred. [email or web address] Not available 01/15/2025 10:14:13 Plan of Treatment Reminders Order Date Submit Date Provider Last Modified By Organization Details Last Modified Time Details Appointments Follow Up 15 2024 09:30A Natalie Helton MD Not available Not available Not available Lab None recorded. Referral None recorded. Procedures None recorded. Surgeries None recorded. Imaging XR, foot, 3 or more view 2024 04 025 [facility] [place] [address], [place], [address], 12/27/2024 08:55:08 Medication Orders azelastin e 137 mcg (0.1 %) nasal spray [address] [facility] [address], [address] [facility], [place], [address], 01/17/2025 10:50:59 Medrol (Leon) 4 mg tablets in a dose pack [address] [facility] [address], [address] [facility], [place], [address], 01/17/2025 10:50:59 betametha sone dipropion ate 0.05 % topical cream [email or web address] [place] [address] 2425, [address] [facility], [place], [address], 01/15/2025 11:06:24 Ciprodex 0.3 %-0.1 % ear drops,yesenia pension [address] [facility] 2425, [address] [facility], [place], [address], 01/08/2025 10:46:58 Medrol (Leon) 4 mg tablets in a dose pack [address] [facility] [address], [address] [facility], [place], [address], 01/08/2025 10:46:57 Ciprodex 0.3 %-0.1 % ear drops,yesenia pension [address] [facility] 2425, [address] [facility], [place], [address], 12/28/2024 10:41:06 Patient TargetsNo targets recorded. Patient InstructionsNo instructions recorded. Reason for Referral None Reported. Results Created Date Observation Date Name Description Value Unit Range Abnormal Flag Note LastModifiedBy Organization Detail LastModifiedTime 12/02/1912/01/2024 XR, foot, 2 view [facility] [address] [place] [address] [phone] Patien t Name: JESSICA DAUGHERTY ion #: [id number] Sex: F : 1970 3 Dictat ed By: Alexandra Alvarez Attend ing Physic doris: KEVIN MUSTAFA Orderi ng Physic doris: KEVIN MUSTAFA Exam Date: 2024 09:31 AM Exam Name: XR FOOT RT 2V Admitt ing Diagno sis(es ): CLINIC AL INDICA TION: post-o p TECHNI QUE: 2 radiog raphic views of the right foot were obtain ed. Compar buffy: XR FOOT RT 2V on DOS: 4, XR FOOT LT 3V+ on DOS: 3, XR FOOT LT 2V on DOS: 3, XR FOOT LT 3V+ on DOS: 04/15/23 , XR FOOT LT 2V on DOS: 3 FINDIN GS/IMP RESSIO N: There is no eviden ce of acute fractu re or disloc ation. Surgic al change s are visual ized in the right 1st metata rsopha langea l joint. Postsu rgical change s are visual ized in the right 3rd proxim al interp halang eal joint. Small planta r calcan eal enthes ophyte . Electr onical ly Signed by: Alexandra Alvarez at 2024 11:10: 26 AM Page 1 [email or web address] [facility] (Imaging) [address] [place], [address], 12/04/2024 09:27:46 12/02/19 25 12/01/2024 XR, foot, 3 or more view No observ ation record ed. [email or web address] [facility] [address] [place], [address], 12/04/2024 09:27:38 12/28/19 25 XR, foot, 3 or more view No observ ation record ed. [email or web address] [facility] [place] [address], [place], [address], 12/27/2024 08:54:11 Result Notes None recorded. Problems Name Problem SNOMED Code Status Onset Date Resolution Date Notes Provider Name and Address Organization Details Recorded Time Dysfunctio n of right eustachian tube 2959832671490 101 Active 2021 Juancho Helton MD [address] [facility], [facility] [address], [place], [address] , [facility] [employer] 5 10:49:31 Hammer toe 765106387 Active 2022 Not Available [facility] 3 12:52:50 Hammer toe 631508523 Active 2021 Not Available [facility] 3 12:52:50 Referred otalgia 75057893 Active 2021 Not Available [facility] 3 12:52:51 Deviated nasal septum 446800891 Active 2021 Not Available [facility] 3 12:52:51 Postoperat eric care Active 2021 Not Available [facility] 3 12:52:51 Chronic right maxillary sinusitis 1404520353717 9106 Active 2021 Not Available [facility] 3 12:52:51 Heartburn 91225204 Active 2021 Not Available [facility] 3 12:52:51 Painful operation scar 646589424 Active 2022 Not Available [facility] 3 12:52:51 Chronic otitis media 01313997 Active 2022 Not Available [facility] 3 12:52:51 Chronic otitis media 87334396 Active 2022 Not Available [facility] 3 12:52:51 Ear problem 563156512 Active 2021 Not Available [facility] 3 12:52:51 Ear problem 240198860 Active 2021 [facility] Available [facility] 3 12:52:51 Bowel problem 998158465 Active 2021 Not Available [facility] 3 12:52:51 Arthritis 8875255 Active 2021 Not Available [facility] 3 12:52:51 Chronic sinusitis 75270332 Active 2021 Not Available [facility] 3 12:52:52 Bunion 540512250 Active 2021 Not Available [facility] 3 12:52:52 Temporoman dibular joint disorder 25822519 Active 2021 Not Available [facility] 3 12:52:52 Surgical incision wound of skin 091076371835 Active 2021 Not Available [facility] 3 12:52:52 Allergic rhinitis 99902305 Active 2021 Maddy mitchell [facility] 5 11:29:08 Chronic serous otitis media 28867787 Active 2021 Not Available [facility] 3 12:52:52 Dystrophia unguium 54322608 Active 2021 Not Available [facility] 3 12:52:52 Pain of temporoman dibular joint 04969692 Active 2021 Not Available [facility] 3 12:52:52 Fissure in skin 61026151 Active 2021 Not Available [facility] 3 12:52:53 Dysfunctio n of eustachian tube 12694499 Active 2022 Lindsey mitchell [facility] 3 17:03:32 Pain of toe of left foot 5376865809024 08 Active 2022 Kevin Good, DPNatalie [address] [facility], [place] [address], [place], [address] , [facility] 5 10:42:41 Hammer toe 837319166 Active 2022 Kevin Good DPM [address], [place], [address] , [facility] 3 11:57:29 Lip swelling 981543112 Active 2022 Kevin Good DPM [address], [place], [address] , [facility] 3 11:28:06 Pain of left knee joint 6965907411086 07 Active 2022 Shelley Simpson CNA null, [facility] 3 10:11:20 Osteoarthr itis of right knee joint 9462655377622 00 Active 2022 Ofeparminder Holly null, [facility] 3 09:11:08 Tear of medial meniscus of knee 360938648 Active 2022 Ml Hurley null, [facility] 3 09:19:08 Tear of medial meniscus of knee 695474734 Active 2022 Ml Hurley null, [facility] 3 09:19:25 Pain in toe 854123447 Active 2022 Kevin Good DPM [address], [place], [address] , [facility] 3 10:12:45 Low back pain 339105548 Active 2022 Nohemi Chaudhary CMA null, [facility] 3 10:56:42 Postoperat eric pain 703571446 Active 2022 Kevin Good DPM [address], [place], [address] , [facility] 3 11:31:18 Cellulitis of toe 50654223 Active 2022 Kevin Good DPM [address], [place], [address] , [facility] 3 10:52:17 Ingrowing toenail 719141836 Active 2022 Kevin Good DPM [address], [place], [address] , [facility] 3 14:25:01 Pain of toe of right foot 4787253975357 01 Active 2022 Kevin Good DPM [address], [place], [address] , [facility] 5 10:10:36 Ingrowing nail of toe of right foot 8621417065817 9102 Active 2022 Kevin Good DPM [address], [place], [address] , [facility] 3 18:29:35 Ingrowing nail of toe of left foot 9180286267865 9107 Active 2022 Kevin Good DPM [address], [place], [address] , [facility] 3 18:29:48 Pain in throat 357372063 Active 2022 Juancho Helton MD [address], [place], [address] , [facility] 3 11:01:12 Tinea pedis 0863825 Active 2022 Kevin Good DPM [address], [place], [address] , [facility] 3 09:43:03 Acquired deformity of toe of right foot 2857956546126 06 Active 2022 Kevin Good DPM [address], [place], [address] , [facility] 3 09:54:48 Bone spur of left foot 7478184510056 08 Active 2022 Kevin Good DPM [address], [place], [address] , [facility] 3 09:58:16 Pre-surger y testing Active 2022 Kevin Good DPM [address], [place], [address] , [facility] 3 17:01:55 Dysfunctio n of bilateral eustachian tubes 3568636765745 100 Active 2023 Juancho Helton MD [address], [place], [address] , [facility] 4 11:13:00 Benign paroxysmal positional vertigo 964746013 Active 2023 Arely Christensen RN null, [facility] 4 17:03:47 Chronic tonsilliti s 53639203 Active 2023 Juancho Helton MD [address], [place], [address] , [facility] 4 12:10:01 Pain in right foot 5257993548058 07 Active 2023 Kevin Good DPM [address], [place], [address] , [facility] 4 11:37:50 Osteophyte of bone 7617684313993 00 Active 2023 Kevin Good DPM [address], [place], [address] , [facility] 4 11:37:59 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 8479855853610 9108 Active 2023 Kevin Good DPM [address], [place], [address] , [facility] 4 11:38:14 Foot callus 226164085 Active 2023 Kevin Good DPM [address], [place], [address] , [facility] 4 11:38:22 Acute otitis media 7594403 Active 2023 Maddy Johnson stephen, [facility] 4 12:53:41 Pain of scar 260902896 Active 2024 Kevin Good DPM [address], [place], [address] , [facility] 5 10:10:48 Notes:URINARY/BLADDER/KIDNEY PROBLEM Problem Notes None recorded. Procedures Surgical History Date Name Laterality Status Provider Name and Address Organization Details Recorded Time 12/21/19 25 TYMPANOSTOMY, TUBE INSERTION (SURG) completed Ofe Holly [facility] 02/08/2025 08:18:48 12/12/19 25 Suture Removal completed Kevin Good DPM [address], [place], [address], [facility] 12/14/2024 09:46:44 02/23/20 24 Myringotomy Tube Placement [facility] 03/01/2024 11:07:31 02/23/20 24 TYMPANOSTOMY, TUBE INSERTION (SURG) completed Arely Christensen RN [facility] 03/03/2024 09:26:55 01/28/20 24 Myringotomy Tube Placement completed [facility] 02/09/2024 14:32:07 01/28/20 24 TYMPANOSTOMY, TUBE INSERTION (SURG) completed Arely Christensen RN [facility] 02/09/2024 14:27:51 07/12/20 23 Blank Procedure Note completed Kevin Good DPM [address], [place], [address], [facility] 07/12/2023 18:29:28 05/31/20 23 Nail Debridement completed Kevin Good DPM [address], [place], [address], [facility] 05/31/2023 14:23:06 04/15/20 23 Suture Removal completed Kevin Good DPM [address], [place], [address], [facility] 04/15/2023 10:09:12 03/03/20 23 KNEE ARTHROSCOPY WITH MEDIAL MENISCECTOMY (SURG) completed Krystian Duarte MD [address], [place], [address], [facility] 03/04/2023 07:07:17 02/05/20 23 Ortho - Cortisone Injection completed Krystian Duarte MD [address], [place], [address], [facility] 02/04/2023 09:28:23 01/19/20 23 Suture Removal completed Kevin Good DPM [address], [place], [address], [facility] 01/18/2023 10:26:35 01/08/20 23 Ortho - Cortisone Injection completed Krystian Duarte MD [address], [place], [address], [facility] 01/07/2023 10:34:39 01/08/20 23 Suture Removal completed Kevin Good DPM [address], [place], [address], [facility] 01/07/2023 10:42:09 12/02/19 22 SEPTOPLASTY (SURG) completed Not Available [facility] 11/11/2022 12:57:12 hammer toe operation completed Shelley Simpson CNA [facility] 01/07/2023 10:10:48 TYMPANOSTOMY, TUBE INSERTION (SURG) completed Not Available [facility] 11/11/2022 12:57:12 TYMPANOSTOMY, TUBE INSERTION (SURG) completed Arely Christensen RN [facility] 11/30/2022 09:18:05 Imaging Results None recorded. Procedure Notes None recorded. Medical Equipment None Reported. Allergies Allergen ID Allergen Name Allergen Category Reaction Reaction Severity Criticality Documentation Date Start Date Code Code System Note Provider Name and Address Organization Details Recorded Time 37474 Levaquin medicatio n nausea Not available Not available 11/11/2022 96319 2 RxNorm Not Available [facility] 3 12:57:07 08868 diclofena c Not available itching Not available Not available 11/11/2022 3355 RxNorm Not Available [facility] 3 12:57:07 Medications Name Sig Start Date Stop Date Status Note LastModified by Organization Details LastModified Time celecoxib 200 mg capsule TAKE 1 CAPSULE BY MOUTH EVERY 12 HOURS NEEDED 04/05 completed Not Available Not Available Not Available cyclobenz aprine 10 mg tablet 11/26 completed Not Available Not Available Not Available amoxicill in 500 mg capsule TAKE 1 CAPSULE BY MOUTH 4 TIMES DAILY UNTIL GONE 03/02 completed Not Available Not Available Not Available promethaz ine-DM 6.25 mg-15 mg/5 mL oral syrup TK 5 ML PO Q 4 TO 6 H PRF COUGH. JONATHON 07/23 completed Not Available Not Available Not Available neomycin- polymyxin -hydrocor t 3.5 mg/mL-10, 000 unit/mL-1 % ear solution 11/26 completed Not Available Not Available Not Available azelastin e 0.05 % eye drops INSTILL 1 DROP INTO AFFECTED EYE(S) TWICE DAILY FOR 30 DAYS active Not Available Not Available No t Available nystatin 100,000 unit/mL oral suspensio n 11/26 completed Not Available Not Available Not Available prednison e 10 mg tablet TAKE 1 TABLET BY MOUTH THREE TIMES DAILY FOR 3 DAYS, THEN 1 TWICE DAILY FOR 2 DAYS, THEN 1 ONCE DAILY FOR 1 DAY 08/31 completed Not Available Not Available Not Available oxybutyni n chloride ER 15 mg tablet,ex tended release 24 hr 11/26 completed Not Available Not Available Not Available doxycycli ne hyclate 100 mg capsule TAKE 1 CAPSULE BY MOUTH TWICE DAILY DIRECTED FOR 7 DAYS 07/15 completed Not Available Not Available Not Available paroxetin e 10 mg tablet 07/23 completed Not Available Not Available Not Available clindamyc in HCl 300 mg capsule 01/30 completed Not Available Not Available Not Available ammonium lactate 12 % lotion Apply 2 applicat ions every day by topical route as needed. 01/12 completed Not Available Not Available Not Available triamcino lone acetonide 0.5 % topical cream APPLY TO FT DAILY PRN 01/12 completed Not Available Not Available Not Available amitripty line 150 mg tablet TAKE 1 TABLET BY MOUTH AT BEDTIME 02/19 completed Not Available Not Available Not Available oxybutyni n chloride ER 10 mg tablet,ex tended release 24 hr TAKE 1 TABLET BY MOUTH ONCE DAILY 11/26 completed Not Available Not Available Not Available azithromy otis 250 mg tablet TAKE 2 TABLETS BY MOUTH ON DAY 1, AND THEN TAKE 1 TABLET BY MOUTH ONCE A DAY ON DAY 2 THROUGH DAY 5 09/16 completed Not Available Not Available Not Available amitripty line 75 mg tablet 11/26 completed Not Available Not Available Not Available nystatin 100,000 unit/gram topical ointment APPLY OINTMENT TOPICALL Y TO AFFECTED AREA TWICE DAILY active Not Available Not Available No t Available tizanidin e 4 mg tablet TAKE 1 TO 2 TABLETS BY MOUTH EVERY 6 TO 8 HOURS NEEDED FOR MUSCLE PAIN. MAX OF 36 MG PER DAY 09/16 completed Not Available Not Available Not Available fluconazo le 150 mg tablet TAKE 1 TABLET BY MOUTH NOW AND ANOTHER IN 48 HOURS active Not Available Not Available No t Available benzonata te 200 mg capsule TAKE 1 CAPSULE BY MOUTH THREE TIMES DAILY NEEDED FOR COUGH 08/31 completed Not Available Not Available Not Available cephalexi n 250 mg capsule 07/23 completed Not Available Not Available Not Available hydrocodo ne 5 mg-acetam inophen 325 mg tablet TAKE 1 TABLET BY MOUTH EVERY 6 HOURS NEEDED FOR MODERATE PAIN (4-6 ON SCALE) active Not Available Not Available No t Available sucralfat e 1 gram tablet 11/26 completed Not Available Not Available Not Available carbamaze pine ER 100 mg tablet,ex tended release,1 2 hr TAKE 1 TABLET BY MOUTH TWICE DAILY FOR 3 DAYS MAY INCREASE BY 200MG PER DAY UNTIL PAIN RELIEF, MAX OF 1200MG PER DAY 02/19 completed Not Available Not Available Not Available phenazopy ridine 200 mg tablet TAKE 1 TABLET BY MOUTH THREE TIMES DAILY NEEDED 02/19 completed Not Available Not Available Not Available ondansetr on HCl 4 mg tablet TK 1 T PO Q 8 H PRN 11/26 completed Not Available Not Available Not Available prednison e 20 mg tablet take 2 tablets for 4 days then 1 tablet for 2 days for a total of 6 days active Not Available Not Available No t Available sertralin e 100 mg tablet TAKE 1 TABLET BY MOUTH TWICE DAILY active Not Available Not Available No t Available prednison e 5 mg tablet 11/26 completed Not Available Not Available Not Available metronida zole 500 mg tablet 07/23 completed Not Available Not Available Not Available acetamino phen 300 mg-codein e 30 mg tablet TAKE 1 TABLET BY MOUTH 4 TIMES DAILY NEEDED active Not Available Not Available No t Available prochlorp erazine maleate 10 mg tablet TAKE 1 TABLET BY MOUTH EVERY 8 HOURS NEEDED FOR NAUSEA AND VOMITING FOR 3 MONTHS MAX 20MG PER DAY active Not Available Not Available No t Available trimethop rim 100 mg tablet 11/26 completed Not Available Not Available Not Available ciproflox acin 500 mg tablet TAKE 1 TABLET BY MOUTH EVERY 12 HOURS WITH MEALS FOR 7 DAYS 11/09 completed Not Available Not Available Not Available sulfameth oxazole 800 mg-trimet hoprim 160 mg tablet TAKE 1 TABLET BY MOUTH TWICE DAILY active Not Available Not Available No t Available omeprazol e 40 mg capsule,d elayed release TAKE 1 CAPSULE BY MOUTH ONCE DAILY 06/24 completed Not Available Not Available Not Available tramadol 50 mg tablet TAKE 1 TABLET BY MOUTH EVERY 6 HOURS DIRECTED 09/16 completed Not Available Not Available Not Available triamcino lone acetonide 0.1 % topical cream 07/23 completed Not Available Not Available Not Available amoxicill in 500 mg tablet 07/23 completed Not Available Not Available Not Available acyclovir 800 mg tablet 07/23 completed Not Available Not Available Not Available ondansetr on 8 mg disintegr ating tablet DISSOLVE 1 TABLET IN MOUTH EVERY 8 HOURS NEEDED FOR NAUSEA AND VOMITING 02/19 completed Not Available Not Available Not Available prednison e 10 mg tablets in a dose pack Take 1 tab by mouth, 3 times a day for 3 daysTake 1 tab by mouth 2 times a day for 2 daysTake 1 tab by mouth once a day for 1 day 04/05 completed Not Available Not Available Not Available meloxicam 7.5 mg tablet TAKE 1 TABLET BY MOUTH ONCE DAILY NEEDED FOR PAIN 02/19 completed Not Available Not Available Not Available oxycodone -acetamin ophen 5 mg-325 mg tablet TAKE 1 TABLET BY MOUTH EVERY 6 HOURS NEEDED FOR PAIN 01/12 completed Not Available Not Available Not Available alprazola m 0.25 mg tablet TAKE 1 TABLET BY MOUTH THREE TIMES DAILY NEEDED FOR ANXIETY active Not Available Not Available No t Available amitripty line 25 mg tablet 11/26 completed Not Available Not Available Not Available estradiol 1 mg tablet TAKE 1 TABLET BY MOUTH ONCE DAILY active Not Available Not Available No t Available triamcino lone acetonide 0.1 % dental paste 11/26 completed Not Available Not Available Not Available Percocet 10 mg-325 mg tablet TAKE 1 TAB PO Q 6HRS PRN PAIN 04/05 completed Not Available Not Available Not Available Kenalog 10 mg/mL suspensio n for injection office 01/12 completed ND: [id number] 4-20 Not Available Not Available Not Available amitripty line 10 mg tablet TAKE 1 TABLET BY MOUTH ONCE DAILY AT BEDTIME 01/12 completed Not Available Not Available Not Available phenazopy ridine 100 mg tablet TAKE 1 TABLET BY MOUTH THREE TIMES DAILY NEEDED FOR 3 DAYS 01/12 completed Not Available Not Available Not Available baclofen 10 mg tablet TAKE 1 2 (ONE HALF) TABLET BY MOUTH THREE TIMES DAILY NEEDED 07/23 completed Not Available Not Available Not Available hydrocodo ne 7.5 mg-acetam inophen 325 mg tablet TAKE 1 TABLET BY MOUTH EVERY 4 HOURS NEEDED 12/11 completed Not Available Not Available Not Available cephalexi n 500 mg capsule TAKE 1 CAPSULE BY MOUTH ONCE DAILY 09/16 completed Not Available Not Available Not Available pantopraz ole 40 mg tablet,de layed release TAKE 1 TABLET BY MOUTH TWICE DAILY active Not Available Not Available No t Available esomepraz ole magnesium 40 mg capsule,d elayed release TK 1 C PO QAM 11/26 completed Not Available Not Available Not Available triamcino lone acetonide 0.1 % topical ointment APPLY A THIN LAYER OF OINTMENT TOPICALL Y TO AFFECTED AREA TWICE DAILY active Not Available Not Available No t Available nystatin 100,000 unit/gram topical cream APPLY CREAM TOPICALL Y TO AFFECTED AREA(S) TWICE DAILY 07/23 completed Not Available Not Available Not Available buspirone 10 mg tablet TAKE 1 TABLET BY MOUTH THREE TIMES DAILY active Not Available Not Available No t Available naproxen 500 mg tablet,de layed release 11/26 completed Not Available Not Available Not Available nystatin- triamcino lone 100,000 unit/g-0. 1 % topical cream APPLY CREAM EXTERNAL LY TO AFFECTED AREA TWICE DAILY active Not Available Not Available No t Available betametha sone dipropion ate 0.05 % topical cream APPLY 1 GRAM PER APPLICAT ION TO THE AFFECTED AREA(S) TOE GREAT RIGHT BY TOPICAL ROUTE ONCE DAILY active Not Available Not Available No t Available oxybutyni n chloride ER 5 mg tablet,ex tended release 24 hr active Not Available Not Available Not Available estradiol 2 mg tablet TAKE 1 TABLET BY MOUTH ONCE DAILY 06/24 completed Not Available Not Available Not Available diclofena c sodium 75 mg tablet,de layed release TAKE 1 TABLET BY MOUTH TWICE DAILY NEEDED FOR PAIN 07/23 completed Not Available Not Available Not Available monteluka st 10 mg tablet TAKE 1 TABLET BY MOUTH ONCE DAILY active Not Available Not Available No t Available hydroxyzi ne HCl 25 mg tablet TAKE 1 TABLET BY MOUTH 4 TIMES DAILY NEEDED FOR ITCHING active Not Available Not Available No t Available codeine 10 mg-guaife nesin 100 mg/5 mL oral liquid TAKE 10 ML BY MOUTH EVERY DAY AT BEDTIME NEEDED FOR COUGH 09/16 completed Not Available Not Available Not Available mupirocin 2 % topical ointment APPLY OINTMENT TOPICALL Y TO AFFECTED AREA THREE TIMES DAILY FOR 10 DAYS 09/16 completed Not Available Not Available Not Available gabapenti n 100 mg capsule 07/23 completed Not Available Not Available Not Available ergocalci ferol (vitamin D2) 1,250 mcg (50,000 unit) capsule TAKE 1 CAPSULE BY MOUTH WEEKLY 02/19 completed Not Available Not Available Not Available lorazepam 1 mg tablet TAKE 1 TABLET BY MOUTH 1 HOUR PRIOR TO PROCEDUR E 07/23 completed Not Available Not Available Not Available azelastin e 137 mcg (0.1 %) nasal spray USE 2 SPRAY(S) IN EACH NOSTRIL TWICE DAILY 2024 active Not Available Not Available Not Avai lable diazepam 10 mg tablet TAKE 1 TABLET BY MOUTH THREE TIMES DAILY 09/16 completed Not Available Not Available Not Available triamcino lone acetonide 0.1 % lotion APPLY LOTION TOPICALL Y TO AFFECTED AREA OF FACIAL REGION ONCE DAILY UNTIL RESOLVED active Not Available Not Available No t Available levofloxa otis 500 mg tablet 07/23 completed Not Available Not Available Not Available oxycodone -acetamin ophen 7.5 mg-325 mg tablet 11/26 completed Not Available Not Available Not Available estradiol 0.01% (0.1 mg/gram) vaginal cream INSERT 1 GRAM VAGINALL Y 2-3 TIMES A WEEK 01/12 completed Not Available Not Available Not Available methylpre dnisolone 4 mg tablets in a dose pack TAKE BY MOUTH DIRECTED ON INSIDE OF PACKAGE active Not Available Not Available No t Available albuterol sulfate HFA 90 mcg/actua tion aerosol inhaler INHALE 2 PUFFS BY MOUTH EVERY 4 TO 6 HOURS NEEDED FOR SHORTNES S OF BREATH OR WHEEZING active Not Available Not Available No t Available dextroamp hetamine- amphetami ne ER 30 mg 24hr capsule,e xtend release TAKE 1 CAPSULE BY MOUTH ONCE DAILY active Not Available Not Available No t Available ketoconaz ole 2 % topical cream APPLY CREAM TOPICALL Y TO AFFECTED AREA ONCE DAILY 01/12 completed Not Available Not Available Not Available Cortispor in-TC 3.3 mg-3 mg-10 mg-0.5 mg/mL ear drops,yesenia pension Instill 4 drops twice a day by otic route for 10 days. 09/16 completed Not Available Not Available Not Available ondansetr on 4 mg disintegr ating tablet DISSOLVE 1 TABLET IN MOUTH EVERY 6 HOURS NEEDED 08/12 completed Not Available Not Available Not Available cefdinir 300 mg capsule TAKE 1 CAPSULE BY MOUTH TWICE DAILY FOR 10 DAYS 12/27 completed Not Available Not Available Not Available piroxicam 20 mg capsule TAKE 1 CAPSULE BY MOUTH ONCE DAILY active Not Available Not Available No t Available sertralin e 50 mg tablet TAKE 1 TABLET BY MOUTH ONCE DAILY WITH FOOD active Not Available Not Available No t Available progester one micronize d 100 mg capsule TAKE 1 CAPSULE BY MOUTH ONCE DAILY active Not Available Not Available No t Available amoxicill in 875 mg-potass ium clavulana te 125 mg tablet TAKE 1 TABLET BY MOUTH EVERY 12 HOURS FOR 10 DAYS 01/30 completed Not Available Not Available Not Available amoxicill in 500 mg-potass ium clavulana te 125 mg tablet 11/26 completed Not Available Not Available Not Available tobramyci n 0.3 %-dexamet hasone 0.1 % eye drops,yesenia pension 4 DROPS IN RIGHT EAR 2X DAILY FOR 7 DAYS 03/23 completed Not Available Not Available Not Available neomycin- polymyxin -hydrocor t 3.5 mg-10,000 unit/mL-1 % ear drops,yesenia p 09/16 completed Not Available Not Available Not Available dextroamp hetamine- amphetami ne ER 15 mg 24hr capsule,e xtend release TAKE 1 CAPSULE BY MOUTH IN THE MORNING active Not Available Not Available No t Available dextroamp hetamine- amphetami ne ER 25 mg 24hr capsule,e xtend release TAKE 1 CAPSULE BY MOUTH ONCE DAILY active Not Available Not Available No t Available azithromy otis 500 mg tablet TAKE 2 TABLETS BY MOUTH A ONE TIME DOSE 01/30 completed Not Available Not Available Not Available escitalop kristin 10 mg tablet TAKE 1 TABLET BY MOUTH ONCE DAILY 09/16 completed Not Available Not Available Not Available atomoxeti ne 40 mg capsule TAKE 1 CAPSULE BY MOUTH ONCE DAILY 10/05 completed Not Available Not Available Not Available cyclobenz aprine 5 mg tablet TAKE 1 TABLET BY MOUTH ONCE DAILY NEEDED active Not Available Not Available No t Available ciproflox acin 0.3 %-dexamet hasone 0.1 % ear drops,yesenia pension INSTILL 4 DROPS INTO AFFECTED EAR(S) TWICE DAILY FOR 7 DAYS active Not Available Not Available No t Available cholestyr amine (with sugar) 4 gram oral powder TAKE 4 GRAMS BY MOUTH AT BEDTIME WITH 2-3 OUNCES OF WATER active Not Available Not Available No t Available cholestyr amine (with sugar) 4 gram powder for susp in a packet DISSOLVE & TAKE 1 PACKET BY MOUTH TWICE DAILY 02/19 completed Not Available Not Available Not Available bupropion HCl XL 150 mg 24 hr tablet, extended release TAKE 1 TABLET BY MOUTH IN THE MORNING 07/23 completed Not Available Not Available Not Available topiramat e 50 mg tablet active STILL BEING BY PCP PER PATIENT ON 03/02/24 Not Available Not Available Not Available nitrofura ntoin monohydra te/macroc rystals 100 mg capsule TAKE 1 CAPSULE BY MOUTH TWICE DAILY FOR 7 DAYS active Not Available Not Available No t Available Prevalite 4 gram oral powder TAKE 4 GRAMS BY MOUTH DAILY - MIX 4 GRAMS WITH 2 OR 3 OUNCES OF WATER AND TAKE AT BEDTIME 01/12 completed Not Available Not Available Not Available Vesicare 5 mg tablet 11/26 completed Not Available Not Available Not Available Euflexxa 10 mg/mL (mw 2.4-3.6 million) intra-art icular syringe Injectio ns given in the office by the doctor 07/23 completed NDC: [id number] 001 Not Available Not Available Not Available sodium fluoride 1.1 % dental paste 02/19 completed Not Available Not Available Not Available atomoxeti ne 80 mg capsule TAKE 1 CAPSULE BY MOUTH ONCE DAILY 10/05 completed Not Available Not Available Not Available lidocaine (PF) 10 mg/mL (1 %) injection solution In office injectio n administ ered by the provider 07/23 completed NDC: [id number] 02-27 Not Available Not Available Not Available Chantix 1 mg tablet 11/26 completed Not Available Not Available Not Available levocetir izine 5 mg tablet TAKE 1 TABLET BY MOUTH ONCE DAILY IN THE EVENING active Not Available Not Available No t Available oxycodone 10 mg tablet 06/24 completed Not Available Not Available Not Available diclofena c 1 % topical gel APPLY 4 GRAMS TOPICALL Y 4 TIMES DAILY NEEDED FOR PAIN. APPLY TO SINGLE KNEE,ANK LE,FOOT; FOR FOOT INCLUDES SOLE/TOE S/TOP OF FOOT 02/19 completed Not Available Not Available Not Available azelastin e 205.5 mcg (0.15 %) nasal spray 11/26 completed Not Available Not Available Not Available Uribel 118 mg-10 mg-40.8 mg-36 mg capsule TAKE 1 CAPSULE BY MOUTH THREE TIMES DAILY NEEDED. 02/19 completed Not Available Not Available Not Available ropivacai ne (PF) 5 mg/mL (0.5 %) injection solution in office 01/12 completed [facility] 49274-71 12-12 Not Available Not Available Not Available Chantix Starting Month Box 0.5 mg (11)-1 mg (42) tablets in dose pack 11/26 completed Not Available Not Available Not Available Myrbetriq 25 mg tablet,ex tended release 07/23 completed Not Available Not Available Not Available Myrbetriq 50 mg tablet,ex tended release TAKE 1 TABLET BY MOUTH ONCE DAILY 02/19 completed Not Available Not Available Not Available Flonase Allergy Relief 50 mcg/actua tion nasal spray,yesenia pension [place] 1 spray every day by intranas al route. 2024 active Not Available Not Available Not Avai lable Yuvafem 10 mcg vaginal tablet INSERT 1 TABLET IN VAGINA TWICE A WEEK AT BEDTIME FOR MAINTENA NCE active Not Available Not Available No t Available Fluzone Quad (PF) 60 mcg (15 mcg x 4)/0.5 mL IM syringe PHARMACI ST ADMINIST ERED IMMUNIZA TION ADMINIST ERED AT TIME OF DISPENSI NG active Not Available Not Available No t Available Pataday Once Daily Relief 0.7 % eye drops INSTILL 1 DROP INTO AFFECTED EYE(S) ONCE DAILY active Not Available Not Available No t Available Gemtesa 75 mg tablet TAKE 1 TABLET BY MOUTH ONCE DAILY active Not Available Not Available No t Available Qulipta 10 mg tablet TAKE 1 TABLET BY MOUTH ONCE DAILY active Not Available Not Available No t Available Vitals Date Recorded Body height Body mass index (BMI) Body weight Heart rate Respiratory rate Oxygen saturation Oxygen saturation in Arterial blood by Pulse oximetry Systolic blood pressure Diastolic blood pressure Provider Name and Address Organization Details Last Updated DateTime 170.18 cm 33.5 kg/m2 41646.7 7 g 96 /min 14 /min 98 % 98 % 135 mm[Hg] 86 mm[Hg] Lucy MORLEY PA [facility] 5 11:24:32 Date Recorded Body height Body mass index (BMI) Body weight Body temperature Provider Name and Address Organization Details Last Updated DateTime 12/28/2024 170.18 cm 34.1 kg/m2 30896.14 g 97.8 [degF] Arely Christensen RN [facility] RF [facility] 12/28/2024 10:28:47 Date Recorded Body height Body mass index (BMI) Body weight Body temperature Provider Name and Address Organization Details Last Updated DateTime 01/08/2025 170.18 cm 34.5 kg/m2 05094.76 g 97.9 [degF] Shelley Simpson CNA [facility] RF [facility] 01/08/2025 10:34:56 Date Recorded Body height Body mass index (BMI) Body weight Heart rate Respiratory rate Oxygen saturation Oxygen saturation in Arterial blood by Pulse oximetry Systolic blood pressure Diastolic blood pressure Provider Name and Address Organization Details Last Updated DateTime 170.18 cm 34.5 kg/m2 73487.3 2 g 100 /min 14 /min 98 % 98 % 107 mm[Hg] 82 mm[Hg] Lucy Lucero [facility] 09:55:37 Date Recorded Body height Body mass index (BMI) Body weight Body temperature Provider Name and Address Organization Details Last Updated DateTime 01/17/2025 170.18 cm 34.3 kg/m2 23949.73 g 97.5 [degF] Arely Christensen RN [facility] RF [facility] 01/17/2025 10:33:17 Social History Question Answer Notes LastModified by Organizat ion Details LastModified Time Tobacco Smoking Status Current Every Day Smoker Sadie mitchell [facility] 10/19/2023 09:01:50 What Is Your Level Of Caffeine Consumption? Occasional [id number] Information not available 11/11/2022 In The 14 Days Before Symptom Onset, Have You Had Close Contact With A Laboratory-confir med COVID-19 While That Case Was Ill? No Information not available 10/19/2023 In The 14 Days Before Symptom Onset, Have You Had Close Contact With A Person Who Is Under Investigation For COVID-19 While That Person Was Ill? No Information not available 10/19/2023 What Was The Date Of Your Most Recent Tobacco Screening? 02/19/2022 Information not available 10/19/2023 Has Tobacco Cessation Counseling Been Provided? No Information not available 10/19/2023 Have You Recently Traveled Abroad? No Information not available 10/19/2023 Sex: Unknown Functional Status Question Answer Note LastModified by Organizat ion Details LastModified Time Do you use any illicit or recreational drugs? No Information not available 10/19/2023 What is your level of alcohol consumption? None [id number] Information not available 11/11/2022 Mental Status None recorded. Family History Relationship Description Onset Age of this Age Resolved Age Notes LastModified by Organization Details LastModified Time Father Family history of malignant neoplasm [id number] Not available 11/11/2022 12:50:43 Mother Blood coagulation disorder [id number] Not available 11/11/2022 12:50:43 Medical History Condition Response MRSA N SLEEP APNEA N ALLERGIES/HAYFEVER N LUNG DISEASE/DISORDER N INSOMNIA N COPD N RADIATION / CHEMOTHERAPY N HIGH CHOLESTEROL / HYPERLIPIDEMIA N HYPERTHYROIDISM N BLOOD DISEASES N EAR OR HEARING PROBLEMS Y HYPOTHYROIDISM N DEPRESSION (INCLUDING POST ) N HAVE YOU BEEN HOSPITALIZED OR SEEN IN [facility] IN THE PAST YEAR ? N STROKE/TIA N ULCERS N OBESITY N HISTORY WITH COMPLICATIONS WITH ANESTHES IA ? N ANEURYSM N URINARY/BLADDER/KIDNEY PROBLEMS Y ARTHRITIS Y USE OF BLOOD THINNERS N NO SIGNIFICANT PAST MEDICAL HISTORY N DIABETES, TYPE N PARATHYROID DISEASE N ENT Y SEASONAL ALLERGIES Y HEARTBURN / REFLUX Y HEPATITIS / LIVER DISEASE N SLEEP DISORDER N HEADACHES/MIGRAINES Y SEIZURES/EPILEPSY N CHF N PACEMAKER N DIZZINESS Y HEART DISEASE/HEART PROBLEMS N AIDS/HIV N FRACTURES N HYPERTENSION N CANCER: SPECIFY N TOURETTE'S N BLOOD TRANSFUSION N ANESTHESIA COMPLICATIONS N ANEMIA/BLOOD DISORDER N CHRONIC EAR INFECTIONS N TUBERCULOSIS N Gynecological HistoryNo gynecological history recorded. Obstetrics History GPAL:G 0 P 0 0 0 0 Past Encounters Encounter ID Performer Location Encounter Start Date Encounter Closed Date Diagnosis/Indication Diagnosis SNOMED-CT Code Diagnosis ICD10 Code Diagnosis Note [id number] [facility] [place] [address] [place] [address] 01/30/2021 00:00:00 01/30/2021 10:42:10 [id number] Juancho Helton MD [facility] [place] [address] [place] [address] 02/03/2021 00:00:00 02/03/2021 16:56:02 [id number] Juancho Helton MD [facility] [place] [address] [place] [address] 03/18/2021 00:00:00 03/18/2021 11:36:12 [id number] [facility] [place] [address] [place] [address] 07/23/2021 00:00:00 07/23/2021 12:54:15 [id number] MD MILLI [facility] [place] [address] [place] [address] 08/14/2021 00:00:00 08/14/2021 12:41:53 [id number] [facility] _ATHENA_M IGRATION_ DEFAULT_1 _1 , 10/01/2021 00:00:00 10/01/2021 11:07:39 [id number] Juancho Helton MD _ATHSOPHY_M IGRATION_ DEFAULT_1 _1 , 10/29/2021 00:00:00 10/29/2021 12:54:31 [id number] MD RAJEEV [facility] [place] [address] [place] [address] 11/04/2021 00:00:00 11/04/2021 11:42:19 [id number] MD RAJEEV [facility] [place] [address] [place] [address] 12/11/2021 00:00:00 12/11/2021 11:26:50 [id number] Kevin Good DPM [facility] [place] [address] [address] 02/19/2022 00:00:00 02/19/2022 10:57:12 [id number] SANTIAGO [facility] [place] [address] [address] 03/05/2022 00:00:00 03/05/2022 13:49:15 [id number] MD RAJEEV [facility] [place] [address] [place] [address] 03/11/2022 00:00:00 03/11/2022 12:03:47 [id number] MD RAJEEV [facility] [place] [address] [place] [address] 03/24/2022 00:00:00 03/24/2022 16:30:38 [id number] Kevin Good DPM [facility] [place] [address] [place] [address] 06/01/2022 00:00:00 06/01/2022 10:48:36 [id number] MD RAJEEV [facility] [place] [address] [place] [address] 06/25/2022 00:00:00 06/25/2022 10:44:11 [id number] [facility] [place] [address] [place] [address] 07/06/2022 00:00:00 07/06/2022 10:50:51 [id number] Kevin Good DPM [facility] [place] [address] [place] [address] 07/13/2022 00:00:00 07/13/2022 10:07:21 [id number] Kevin Good DPM [facility] [place] [address] [place] [address] 07/20/2022 00:00:00 07/20/2022 10:00:12 [id number] Kevin Good DPM [facility] [place] [address] [place] [address] 07/27/2022 00:00:00 07/27/2022 13:41:17 [id number] Kevin Good DPM [facility] [place] [address] [place] [address] 08/17/2022 00:00:00 08/17/2022 10:11:46 [id number] SANTIAGO [facility] [place] [address] [place] [address] 09/29/2022 00:00:00 09/29/2022 13:28:15 [id number] MD MILLI [facility] [place] [address] [place] [address] 10/29/2022 00:00:00 10/29/2022 16:48:47 [id number] SANTIAGO [facility] [place] [address] [place] [address] 10/29/2022 00:00:00 10/29/2022 09:19:09 [id number] MD MILLI [facility] [place] [address] [place] [address] 12/02/2022 10:40:44 12/02/2022 12:00:17 Dysfunction of right eustachian tube 4052199208 308133 H69.91 [id number] SANTIAGO [facility] [place] [address] [place] [address] 12/01/2022 12:03:39 12/11/2022 14:51:28 Pain of toe of left foot 2266433998 03794 M79.675 X-rays reviewed with the patientObt ain surgical clearanceP enzo arthrodesi s 2nd, 3rd, 4th with de-rotatio nal arthroplas ty of the left 5th Hammer toe 999707411 M20 .42 As above [id number] SANTIAGO [facility] [place] [address] [place] [address] 12/21/2022 09:35:35 12/21/2022 11:32:26 Postoperative care 461350000 Z48.89 dressing changeCont inue postop shoeMinima l weight-tapan ringRice therapyEle vation when at rest to control swellingFo llow-up in 1 week Lip swelling 304114016 K 13.0 follow-up with PCP [id number] Kevin Good DPM [facility] [place] [address] [place] [address] 12/28/2022 09:05:58 12/28/2022 09:47:37 Postoperative care 286671203 Z48.89 dressing changeCont inue postop shoeMinima l weight-tapan ringRice therapyEle vation when at rest to control swellingFo llow-up in 1 week for suture removal Lip swelling 727684721 K 13.0 resolved [id number] Kevin Good DPM [facility] [place] [address] [place] [address] 01/07/2023 09:19:30 01/07/2023 10:53:32 Postoperative care 966674060 Z48.89 dressing changedSut ures removed, Steri-Stri ps appliedCon tinue postop shoeMinima l weight-tapan ringrepeat x-rays today, reviewed with the patientRic e therapyEle vation when at rest to control swellingFo llow-up in 2 weeks for pin removed [id number] Krystian Duarte MD [facility] [place] [address] [place] [address] 01/07/2023 09:59:04 01/07/2023 11:33:58 Pain of left knee joint 3640674893 67654 M25.562 [id number] Kevin Good DPM [facility] [place] [address] [place] [address] 01/18/2023 09:48:06 01/18/2023 10:30:08 Postoperative care [id number] Z48.89 pin removed 4th toewound care to the distal tip of the toe until healed, dailymonit or for signs of infection 4th toe is present seek medical attention immediatel ymay transition to short-leg cam boot for the next 3 weeksRice therapyEle vation when at rest to control swellingFo llow-up in 3 weeks- repeat x-rays at that visit [id number] Kevin Good DPM [facility] [place] [address] [place] [address] 02/04/2023 08:59:48 02/04/2023 10:52:33 Postoperative care [id number] Z48.89 repeat x-rays reviewed with the patient newpatient may transition to normal shoe gearRice therapyEle vation when at rest to control swellingFo llow-up in 3-4 weeks, possible corticoste roid injection the 4th toe Hammer toe 778016553 M20 .42 As above [id number] Krystian Duarte MD [facility] [place] [address] [place] [address] 02/04/2023 09:07:37 02/04/2023 09:50:21 Pain of left knee joint 3288111548 34413 M25.562 Osteoarthr itis of right knee joint 6862630671 04270 M17.11 Tear of me dial meniscus of knee 771028032 S83.242A [id number] Kevin Good DPM [facility] [place] [address] [facility] [address] [place] [address] 02/25/2023 09:43:00 02/25/2023 10:33:31 Postoperative care [id number] Z48.89 repeat x-rays reviewed with the patientDue to patient's continued discomfort of the left 3rd and 4th toes we will plan to revise the arthrodesi s of the left 3rd toe and performed a arthroplas ty of the proximal interphala ngeal joint with hardware of the left 4th.Surger y pending healing of her knee arthroscop yPlan surgery in the end of February in early March Hammer toe 912490133 M20 .42 left 3rd and 4th toesAs above Pain in toe 669599927 M7 9.675 as above [id number] Krystian Duarte MD [facility] [address] [place] [address] 03/09/2023 10:18:09 03/09/2023 10:57:23 Tear of medial meniscus of knee 315220170 S83.242A Osteoarthr itis of right knee joint 4942266226 04412 M17.11 Pain of le ft knee joint 2691124218 75720 M25.562 Postoperative visit 1836 73360 Z09 [id number] Krystian Duarte MD [facility] [place] [address] [place] [address] 03/15/2023 10:39:42 03/15/2023 11:02:17 Tear of medial meniscus of knee 268332784 S83.242A Osteoarthr itis of right knee joint 5606068862 36430 M17.11 Low back pain 671949636 M54.50 [id number] Kevin Good DPM [facility] [place] [address] [place] [address] 04/05/2023 10:53:10 04/05/2023 11:40:14 Postoperative pain 201032649 G89.18 DC PercocetRx tramadol Postoperative care 95178 9007 Z48.89 keep dressings clean dry and intactCont inue postop shoefoot cleaned with ChloraPrep and new dry dressings appliedfin ished oral cephalexin Minimal weight-tapan ring to the bathroom onlyFollow -up in 7-10 days for dressing change [id number] Krystian Duarte MD [facility] [place] [address] [place] [address] 04/12/2023 09:29:30 04/12/2023 10:48:15 Low back pain 022325662 M54.50 [id number] Kevin Good DPM [facility] [place] [address] [facility] [address] [place] [address] 04/15/2023 09:42:48 04/15/2023 14:05:49 Postoperative pain 571816221 G89.18 DC Percocetse condary to implant push through to the DIP jointrevie wed treatment options in detail including keeping the implant in place for 2 more weeks for adequate fusion of the proximal interphala ngeal joint, removal of implant.at this time we will see continue the postop shoe with minimal weight-tapan ring to the forefoot only to the heel, to allow healing of the interphala ngeal joint of the proximal phalanx and plan to remove the implant Postoperative care 23503 9007 Z48.89 continue postop shoerepeat x-rays reviewed with the patient detail- stable findings with hammertoe arthrodesi s 2nd 3rd toes with left 4th toe hardware pushing into the distal interphala ngeal joint Cellulitis of toe 120243 04 L03.032 left 3rd toedue to suture abscess, scantclean ed with chloroprep start doxy to ensure resolution due to hardware [id number] Kevin Good DPM [facility] [place] [address] [facility] [address] [place] [address] 04/19/2023 13:50:45 04/19/2023 15:08:43 Postoperative pain [id number] G89.18 DC Percocetse condary to implant push through to the DIP jointrevie wed treatment options in detail including keeping the implant in place for 2 more weeks for adequate fusion of the proximal interphala ngeal joint, removal of implant.at this time we will see continue the postop shoe with minimal weight-tapan ring to the forefoot only to the heel, to allow healing of the interphala ngeal joint of the proximal phalanx and plan to remove the implant Cellulitis of toe 936515 04 L03.032 left 3rd toeresolve d Postoperative care 19338 9007 Z48.89 continue postop shoerepeat x-rays reviewed with the patient detail- stable findings with hammertoe arthrodesi s 2nd 3rd toes with left 4th toe hardware pushing into the distal interphala ngeal joint Pain of to e of left foot [id number] 69434 M79.675 X-rays reviewed with the patientpla n removal of implant left 4th toe [id number] Kevin Good DPM [facility] [place] [address] [facility] [address] [place] [address] 04/27/2023 17:33:57 04/28/2023 12:21:07 Postoperative care [id number] Z48.89 status post removal of implant left 4th toedoing well dressings changedcon tinue postop shoefollow -up in 2 weeks for suture remove, monitor for signs of infection at present seek medical attention immediatel ydo not get dressings wet- change dressings daily with Betadine wet-to-dry dressing [id number] Kevin Good DPM [facility] [place] [address] [facility] [address] [place] [address] 05/11/2023 09:02:15 05/11/2023 14:09:33 Postoperative care [id number] Z48.89 status post removal of implant left 4th toesutures removedcon tinue postop shoerepeat x-rays today Pain of to e of left foot 7562434042 06487 M79.675 left 3rd toe- secondary to suturesutu re removedkee p area clean and dry until healedmoni tor for signs of infection at present seek medical attention immediatel yBand-Aid appliedfol low-up 2 weeks [id number] Kevin Good DPM [facility] [place] [address] [place] [address] 05/31/2023 09:00:25 05/31/2023 14:56:56 Painful operation scar 811418151 T81.89XA educated on gentle massage to break down scar tissueEduc ated on silicone sheetingAp ply hydorcorti sone to healed incision daily for 2 weeks Postoperative care 18679 9007 Z48.89 status post removal of implant left 4th toesutures removedcon tinue postop shoerepeat x-rays 8 weeks Ingrowing toenail 969290 009 L60.0 left 2nd toedebride d without incidentfo llow-up as needed Pain of to e of right foot 4920803327 16255 M79.674 3rd toe-advise d to use toe spacersif continues to be problemati c may require arthrodesi s due to mild medial deviationp atient quoted- she does not like the way the toe looks [id number] Juancho Helton MD [facility] [place] [address] [place] [address] 07/15/2023 10:03:24 07/15/2023 10:59:47 Dysfunction of right eustachian tube 9098398974 010986 H69.91 Allergic rhinitis 752059 04 J30.0 Encourage to take OTC Zyrtec type meds with flonase for 3-4 months. [id number] Kevin Good DPM [facility] [place] [address] [place] [address] 07/12/2023 17:26:53 07/13/2023 10:56:47 Ingrowing nail of toe of right foot 5492622767 3375239 L60.0 lateral right great toePartial nail avulsion performed without incidentwo und care instructio ns givenfollo w-up in 1 week if not resolved Ingrowing nail of toe of left foot 0658421085 7663681 L60.0 lateral left 2nd toepartial nail avulsion performed without incident [id number] Kevin Good DPM [facility] [place] [address] [place] [address] 07/26/2023 09:01:44 07/26/2023 17:15:34 Tinea pedis 4992255 B35.3 left footdaily foot hygieneRx ketoconazo lefollow-u p in 1-2 weeks if not resolved Acquired d eformity of toe of right foot 8009144999 66744 M20.61 plan arthrodesi s right 3rd toe proximal interphala ngeal jointall treatment options reviewed in detail patient elects to continue with the planned procedure despite possible riskspatie nt understand secondary to previous surgery she is a high risk for complicati ons and possible toe lossobtain surgical clearance from PCPupdate EKG and labs Bone spur of left foot 0786810387 47581 M25.775 x-rays reviewedtr eatment options reviewedpa tient requests removal bone spur secondary to surgery for the right 3rd toe Pre-surgery testing 1104 65211 Z01.89 [id number] Juancho Helton MD [facility] [place] [address] [place] [address] 09/16/2023 10:25:52 09/16/2023 11:30:08 Dysfunction of right eustachian tube 9199094903 381367 H69.91 [id number] Kevin Good DPM [facility] [place] [address] [place] [address] 09/27/2023 08:55:00 09/27/2023 09:18:28 Postoperative care 453198696 Z48.89 status post 3 days- arthrodesi s right 3rd toe and cheilectom y left 1st metatarsop halangeal jointdoing welldressi ngs changedcon tinue postop shoe- minimal walking to and from bathroom onlykeep dressings clean dry and intact for 1 weekfollow -up 1 week for dressing change [id number] Kevin Good DPM [facility] [place] [address] [place] [address] 10/07/2023 08:56:38 10/13/2023 09:28:14 Postoperative care 429494454 Z48.89 status post 10day - arthrodesi s right 3rd toe and cheilectom y left 1st metatarsop halangeal jointdoing welldressi ngs changedsut ures removedcon tinue postop shoe- minimal walking to and from bathroom onlykeep dressings clean dry and intact for 1 weekfollow -up 2 weeks updated x-rays [id number] Kevin Good DPM [facility] Pod[facility] [place] [address] [facility] [address] [place] [address] 10/19/2023 09:01:36 11/01/2023 15:10:28 Postoperative care 802015099 Z48.89 status post 3weeks- arthrodesi s right 3rd toe and cheilectom y left 1st metatarsop halangeal jointdoing wellrice therapy- left footrepeat x-rays follow up in 4 week [id number] Kevin Good DPM [facility] [place] [address] [place] [address] 11/15/2023 09:56:08 11/15/2023 10:44:46 Postoperative care 834558732 Z48.89 status post - arthrodesi s right 3rd toe and cheilectom y left 1st metatarsop halangeal jointdoing wellrice therapy- left footrecomm end supportive inserts and shoe gearFollow -up as needed [id number] Juancho Helton MD [facility] [place] [address] [place] [address] 11/18/2023 10:34:55 11/18/2023 11:12:05 Dysfunction of bilateral eustachian tubes 1543946690 290590 H69.93 [id number] Juancho Helton MD [facility] [place] [address] [place] [address] 01/13/2024 16:23:54 01/14/2024 10:39:22 Dysfunction of right eustachian tube 6286221402 885640 H69.91 Benign par oxysmal positional vertigo 769623709 H81.10 [id number] Juancho Helton MD [facility] [place] [address] [place] [address] 02/10/2024 10:26:18 02/10/2024 16:35:08 Dysfunction of right eustachian tube 6541470931 079027 H69.91 [id number] Juancho Helton MD [facility] [place] [address] [place] [address] 03/02/2024 14:11:50 03/02/2024 15:56:45 Dysfunction of right eustachian tube 1239144923 571501 H69.91 [id number] Kevin Good DPM [facility] [place] [address] [place] [address] 06/19/2024 10:51:10 06/20/2024 13:04:47 Pain in right foot 3583487784 27022 M79.671 as below Osteophyte of bone 51308 61441 06603 M77.9 right 2nd toe- proximal interphala ngeal jointdiscu ss treatment options patient has failed conservati ve offloading may require surgical removal bone spur- patient understand s high risk for wound complicati ons and loss of toe 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 8852698447 4512035 M13.871 reviewed treatment optionsrec ommend supportive shoe gear Foot callus 387461662 L8 4 right 1st metatarsal phalangeal joint plantarrec ommend offloading with cutout diabetic inserts Ingrowing nail of toe of left foot 8550587670 1196549 L60.0 medial left great toe- not infectedma y require partial excisional matrixecto my [id number] Kevin Good DPM [facility] [place] [address] [place] [address] 07/17/2024 11:31:20 09/07/2024 15:01:29 Pain in right foot 2799429444 22971 M79.671 Osteophyte of bone 41656 49011 63096 M77.9 right 2nd toe- proximal interphala ngeal jointdiscu ss treatment options patient has failed conservati ve offloading may require surgical removal bone spur- patient understand s high risk for wound complicati ons and loss of toe 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 4613005235 6213020 M13.871 reviewed treatment optionsrec ommend supportive shoe gearplanne d surgery in September for arthrodesi s of the 1st metatarsop halangeal joint Foot callus 234836127 L8 4 right 1st metatarsal phalangeal joint plantarcon tinue accommodat eric insoles and supportive shoe gear Ingrowing toenail 973067 009 L60.0 right great toenaildeb rided salon non problemati cdiscussed partial matrixecto my [id number] Juancho Helton [facility] [place] [address] [place] [address] 08/31/2024 14:35:13 09/07/2024 10:45:58 Dysfunction of right eustachian tube 6196508730 828288 H69.91 [id number] Juancho Helton [facility] [place] [address] [place] [address] 10/05/2024 10:15:57 10/05/2024 13:50:12 Dysfunction of right eustachian tube 7846676302 826904 H69.91 [id number] Kevin Good DPM [facility] [place] [address] [place] [address] 10/30/2024 12:22:27 10/31/2024 13:16:02 Pain in right foot 1359510151 20048 M79.671 2nd toe PIPJ medial Osteophyte of bone 69106 92063 50759 M77.9 right 2nd toe- proximal interphala ngeal jointdiscu ss treatment options patient has failed conservati ve offloading may require surgical removal bone spur- patient understand s high risk for wound complicati ons and loss of toeplan surgical clearance - MIS bone resection of bone spur Ingrowing toenail 184830 009 L60.0 right great toenaildeb rided without incident [id number] Juancho Helton MD [facility] [place] [address] [place] [address] 11/09/2024 11:56:34 11/10/2024 13:28:05 Dysfunction of right eustachian tube 7321174975 203242 H69.91 [id number] Juancho Helton MD [facility] [place] [address] [place] [address] 11/23/2024 12:20:09 11/27/2024 13:49:26 Ear problem 450205496 H93.91 Dysfunctio n of right eustachian tube 9775844569 121833 H69.91 [id number] Kevin Good DPM [facility] [place] [address] [place] [address] 12/04/2024 09:36:50 12/06/2024 09:25:37 Postoperative care 921030302 Z48.89 status post - right 2nd toe bone spur excision, ingrown toenail excision great toesutures intactdres sings changedcon tinue postop shoekeep dressings clean and dryFollow- up in 1 week [id number] Kevin Good DPM [facility] [place] [address] [place] [address] 12/11/2024 15:28:18 12/18/2024 09:44:50 Postoperative care 480345233 Z48.89 status post - right 2nd toe bone spur excision, ingrown toenail excision great toesutures removeddre ssings changedcon tinue postop shoekeep dressings clean and dryFollow- up in 2 weeks-- obtain x-rays next visit [id number] Kevin Good DPM [facility] [place] [address] [place] [address] 2024 11:17:50 12/27/2024 16:16:12 Postoperative care 982256616 Z48.89 status post - right 2nd toe bone spur excision, ingrown toenail excision great toeIncisio ns well healedx-ra ys reviewed removal of spur medial proximal interphala ngeal jointdress ings changedrec ommend offloading with toe spacer or foam toe sleevedisc ussed options at length with the patient if continues to be problemati c will require arthrodesi s of the 1st MPJ secondary to arthritis and deviation laterallyk eep dressings clean and dryFollow- up as needed [id number] Juancho Helton MD [facility] [place] [address] [place] [address] 12/28/2024 10:19:05 12/29/2024 09:10:13 Dysfunction of right eustachian tube 2658213570 757432 H69.91 [id number] [facility]o Helton [facility] [place] [address] [place] [address] 01/08/2025 10:23:24 01/08/2025 13:15:04 Dysfunction of right eustachian tube 4602053788 842025 H69.91 Pain in throat 357685248 R07.0 [id number] Kevin Good DPM [facility] [place] [address] [place] [address] 01/15/2025 09:48:51 01/15/2025 10:44:16 Pain of toe of right foot 4992350024 72050 M79.674 great toe, rightofflo adingsuppo rtive shoe gearfollow -up as needed Pain of scar 150986775 R 52 L90.5 discuss scar manipulati onoffloadi ngfollow-u p as needed Pain of to e of left foot 8367893995 55073 M79.675 left 1st and 2nd- secondary (filing of toenail-- by patient)of floadingsu pportive shoe gearfollow -up as needed [id number] Juancho Helton MD [facility] [place] [address] [place] [address] 01/17/2025 10:17:55 01/18/2025 07:41:32 Ear problem 933829243 H93.91 Dysfunctio n of right eustachian tube 5023696075 988074 H69.91 Allergic rhinitis 204473 04 J30.9 Encourage to take OTC Zyrtec type meds with flonase for 3-4 months. Health Concerns Section Related Observation LastModified by Organization Detai ls LastModified Time None Recorded Concern Status LastModified by Organization Details LastModified Time None Recorded Advance Directives Directive None Recorded Payers Encounter Date Sequence Insurance Name Policy Number Policy Marie Covered Member ID Marie Member ID Guarantor Name 2024 1 [employer] [id number] Matt M Link [id number] Jessica M Link 12/28/2024 1 [employer] [id number] Matt M Link [id number] Jessica M Link 01/08/2025 1 [employer] [id number] Matt M Link [id number] Jessica M Link 01/15/2025 1 [employer] [id number] Matt M Link [id number] Jessica M Link 01/17/2025 1 [employer] [id number] Matt M Link [id number] Jessica M Link Notes Date Note Type Note Provider Name and Address Organization Details Recorded Time 2024 text/html . Patient is a 54-year-old female who returns for follow-up on removal of osteophyte to the right 2nd toe secondary to arthritis. Patient underwent a spur excision overall she has had reduction of the spur and has healed the incision she has no acute signs of infection. Patient states that the great toe still causes pressure on the 2nd and causes mild discomfort when weight-bearing for long periods of time. I did discuss this at length prior to her previous surgery and I recommended a fusion but she did not want to pursue this. I discussed that if she continues have discomfort I recommend either a silicone gel toe spacer or foam sleeve over the 2nd toe to prevent pressure of the 1st toe and she will likely require a fusion due to arthritis of the 1st MPJ. Kevin Good DPM [address], [place], [address], [facility] 12/27/2024 08:57:21 12/28/2024 text/html This patient reports fullness in her right ear following PE tube placement Juancho Helton MD [address], [place], [address], [employer] 12/28/2024 10:41:23 01/08/2025 text/html She continues to complain of right ear fullness. Juancho Helton MD [address], [place], [address], [employer] 01/08/2025 10:47:22 01/15/2025 text/html . Patient is a 54-year-old female she presents the office with complaints of pain to her toes she states that she has pain at the medial scar on her right great toe she states that she has no open wounds or signs of infection to the area she has developed a little hypertrophic painful scar and states that it rubs in her shoes. Patient states that she also is having discomfort to her great toenail and 2nd toenail of her left foot which she states she had hoping of the toenail and it is visible that she has filed her to toenails down in the middle aspect to almost skin and now she has tenderness at these areas I did explain that this is likely the reason why she has tenderness I recommended she continue to offload the area she has no active signs of infection or open wounds. Kevin Good DPM [address], [place], [address], [facility] [employer] [facility] [employer] [facility] 01/15/2025 10:44:14 01/17/2025 text/html this patient reports she has intermittent clearing of her right ear congestion. She also complains of nasal congestion. She believes this is allergy related. Juancho Helton MD [address], [facility] [address], [place], [address], [employer] [facility] 01/17/2025 10:51:14 OBGyn Episode No OBEpisode recorded.
--- OUTSIDE RECORDS SUMMARY | 2025-02-14 10:34 | XMS_ITS | Clinical Summary ---
Author Organization [facility] [place] [facility] [place] Address [address] [place] [address] Care Team Providers Care Consulting Software Engineer Name Role Phone West Baptiste Primary Care Provider Allergies Active Allergy Reactions Criticality Noted Date Comments Levofloxacin Nausea & Vomiting Low 04/07/2019 nausea and vomiting Medications amitriptyline (ELAVIL) 150 mg tablet Take 150 mg by mouth nightly at bedtime. 12 9 Active cholecalciferol (VITAMIN D-3) 5,000 unit capsule 5,000 Units daily Active cholestyramine (QUESTRAN) 4 gram packet 2 (two) times a day 9 Active fluticasone propionate (FLONASE) 50 mcg/actuation nasal spray daily 9 Active meloxicam (MOBIC) 7.5 mg tablet Take 7.5 mg by mouth as needed 9 Active VILAMIT MB 118-10-40.8-36 mg capsule 1 tablet 3 (three) times a day 9 Active nystatin 100,000 unit/mL suspension Apply to the mouth or throat 4 (four) times a day Active ondansetron ODT (ZOFRAN-ODT) 4 mg disintegrating tablet as needed [address] (PROTONIX) 40 mg EC tablet Take 40 mg by mouth daily 3 9 Active PARoxetine (PAXIL) 10 mg tablet Take 10 mg by mouth daily 3 9 Active montelukast (SINGULAIR) 10 mg tabletIndications:S easonal allergies Take 1 tablet (10 mg total) by mouth nightly 30 tablet 2 9 Active PROAIR HFA 90 mcg/actuation inhaler Inhale 2 puffs every 4 (four) hours as needed for wheezing 1 Inhaler 3 9 Active Active Problems Problem Noted Date Diagnosed Date Other fatigue 05/21/2019 Assessment & Plan (05/21/2019 9:11 PM CDT): Probably multifactorial. Check labs and followup to re-evaluate Seasonal allergies 05/21/2019 Vitamin D deficiency 05/21/2019 Assessment & Plan (05/21/2019 9:11 PM CDT): Supplement. Pt wants to recheck labs Pain around toenail 05/21/2019 Eustachian tube dysfunction, right 04/26/2019 Assessment & Plan (04/26/2019 7:52 PM CDT): Patient has had persistent symptoms with this here. It appears as though the tube is hanging into the canal and is not providing ventilation. She has a follow-up with the ENT on Wednesday so will defer to him. Encouraged her to continue with her antihistamine nasal spray and Mucinex until the appointment. 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 Recommend referal to mental health counselor as the nail is raised and distillery manager. Assessment & Plan (04/26/2019 7:51 PM CDT): Reviewed with patient proper cutting technique. Reviewed the difficulty of having nails done and dirty instruments etc. I encouraged her to soak her nails multiple times a day and push the skin back. Will start an antibiotic. She is to call if her symptoms worsen or do not resolve. Recurrent acute serous otitis media of right ear 04/07/2019 Pre-diabetes 11/07/2018 Assessment & Plan (05/21/2019 9:09 PM CDT): Pre-diabetes is a precursor to Dm. Stressed importance of working on diet (decrease your simple sugars and one carbohydrate with each meal) and increase you exercise to achieve weight loss and this will help prevent you from progressing to diabetes. Pure hypercholesterolemia 11/07/2018 Assessment & Plan (05/21/2019 9:09 PM CDT): Encouraged patient to continue low fat/low chol diet. Continue exercise. Increase good fats in the diet. Monitor labs as needed. Check labs Teeth grinding 11/07/2018 Varicose veins of both lower extremities with pa in 02/10/2018 Gastroesophageal reflux disease 01/10/2018 OAB (overactive bladder) 01/10/2018 Tobacco abuse 01/10/2018 Assessment & Plan (05/21/2019 9:10 PM CDT): Encouraged smoking cessation. Discussed approx 3 minutes. Not interested in cessation. Body mass index (BMI) 40.0-44.9, adult 8 Assessment & Plan (05/21/2019 9:06 PM CDT): Obesity is unchanged. Discussed the patient's BMI. The BMI is above average. BMI management plan is completed. BMI Follow-up includes: nutrition counseling, exercise counseling and education provided. Morbid obesity 01/06/2018 Assessment & Plan (05/21/2019 9:07 PM CDT): Obesity is unchanged. Discussed the patient's BMI. The BMI is above average. BMI management plan is completed. BMI Follow-up includes: nutrition counseling, exercise counseling and education provided. Immunizations Immunization Administration Dates Next Due Tdap 11/28/2018 Surgical History Surgery Date Site/Laterality Comments CHOLECYSTECTOMY BLADDER SURGERY 05/05/2019 Medical History Medical History Date Comments Irritable bowel syndrome Obesity Hyperlipidemia Vitamin D deficiency GERD (gastroesophageal reflux disease) Family History Medical History Relation Name Comments Aortic aneurysm Father Cancer Father No Known Problems Maternal Half-Brother 1 No Known Problems Maternal Half-Brother 2 No Known Problems Maternal Half-Sister Blood Clot Mother No Known Problems Son 1 No Known Problems Son 2 Relation Name Status Comments Father Maternal Half-Brother 1 Alive Maternal Half-Brother 2 Alive Maternal Half-Sister Alive Mother Son 1 Alive Son 2 Alive Social History Tobacco Use Types Packs/Day Years Used Date Smoking Tobacco: Every Day Cigarettes Smokeless Tobacco: Never Tobacco Cessation:Ready to Q uit: No; Counseling Given: Yes Alcohol Use Standard Drinks/Week Comments Never 0 (1 standard drink = 0.6 oz pur e alcohol) AUDIT-C Answer Date Recorded Frequency of Alcohol Consumption Never 04/07/2019 Average Number of Drinks Not on file 019 Frequency of Binge Drinking Not on file 03/14 PHQ-2 Answer Date Recorded PHQ-2 Score 0 05/05/2019 Personal Safety Answer Date Recorded Getting School Help Needed Not on file 11/26 Comments Unknown Sex and Gender Information Value Date Recorded Sex Assigned at Not on file Legal Sex Female 1:20 AM COIL BINDER Gender Identity Not on file Sexual Orientation Not on file Obstetrics History Last Filed Vital Signs Vital Sign Reading Time Taken Comments Blood Pressure 110/73 05/18/2019 9:46 AM CDT Pulse 76 05/18/2019 9:46 AM CDT Temperature 36.7 C (98.1 F) 05/18/2019 9:46 AM CDT Respiratory Rate 18 05/18/2019 9:46 AM CDT Oxygen Saturation 98% 05/18/2019 9:46 AM CDT Inhaled Oxygen Concentration - - Weight 118.2 kg (260 lb 9.6 oz) 05/18/2019 9:46 AM CDT Height 165.1 cm (5' 5) 05/18/2019 9:46 AM CDT Body Mass Index 43.37 05/18/2019 9:46 AM CDT Plan of Treatment Not on file [place] Care Teams Consulting Software Engineer Relationship Specialty Start Date End Date West Baptiste PA [address] [facility] [address] [place] [address] PCP - General Physician Follow Up Rep 11/24/19
--- OUTSIDE RECORDS SUMMARY | 2025-02-14 10:34 | XMS_ITS | Referral Summary ---
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 Recommend referal to tower attendant as the nail is raised and still photographer. Assessment & Plan (04/26/2019 7:51 PM CDT): [...] Immunization Administration Dates Next Due Tdap 11/28/2018 Social History Tobacco Use Types Packs/Day Years [...] on file Legal Sex Female 1:20 AM ETL DATA ARCHITECT Gender Identity Not on file Sexual Orientation Not on file Last Filed Vital Signs Vital Sign Reading [...] on file Insurance [employer] [place] Care Teams Lining Parts Sewer Relationship Specialty Start Date End Date West Baptiste PA [address] [facility] [address] [place] [address] PCP - General Physician Restaurant Area Director 11/24/19
--- OUTSIDE RECORDS SUMMARY | 2025-02-14 10:34 | XMS_ITS | Clinical Summary ---
Author Organization [facility] Address [address] [place] [address] Phone Care Team Providers Care Fitness And Wellness Director Name Role Phone West Baptiste PA-C Primary Care Provide r Allergies Active Allergy Reactions Criticality Noted Date Comments Diclofenac Sodium Itching Low 05/21/2022 Levofloxacin Nausea and Vomiting Medium 04/20/2022 Medications pantoprazole (PROTONIX) 20 mg Tablet, Delayed Release (E.C.) Take 40 mg by mouth daily. Active piroxicam (FELDENE) 20 mg capsule Take 20 mg by mouth daily. Active progesterone micronized (PROMETRIUM) 100 mg Capsule Take by mouth daily. Active ESTRADIOL ORAL Take 1 mg by mouth daily. Active cyclobenzaprine (FLEXERIL) 5 mg Tablet Take 5 mg by mouth 3 times daily as needed for Spasm. Active fluticasone propionate (FLONASE) 50 mcg/spray [place], Suspension nasal inhaler Administer 1 [place] in each nostril 2 times daily. Active ALBUTEROL SULFATE ORAL Take 2 Puffs by mouth. Active cholestyramine aspartame (PREVALITE,QUES ACUÑA LIGHT) 4 gram Powder in Packet Take 4 Grams by mouth 2 times daily with meals. Active OTHER Gemtesa once a day for overactive bladder Active oxyCODONE (ROXICODONE) 10 mg tablet Take 1 Tablet (10 mg) by mouth every 6 hours as needed for pain. 16 Tablet 05/21/2022 6:53 PM CDT Active acetaminophen (TYLENOL) 325 mg tablet Take 2 Tablets (650 mg) by mouth every 4 hours as needed for Pain. 28 Tablet 05/21/2022 6:55 PM CDT Active Social History Tobacco Use Types Packs/Day Years Used Date Smoking Tobacco: Heavy Smoker Cigarettes 0.5 16 Alcohol Use Standard Drinks/Week Comments Never 0 (1 standard drink = 0.6 oz pur e alcohol) Comments No Sex and Gender Information Value Date Recorded Sex Assigned at Not on file Legal Sex Female 10:44 PM CDT Gender Identity Not on file Sexual Orientation Not on file Last Filed Vital Signs Vital Sign Reading Time Taken Comments Blood Pressure 121/77 05/21/2022 6:28 PM CDT Pulse 93 05/21/2022 6:28 PM CDT Temperature 37 C (98.6 F) 05/21/2022 6:28 PM CDT Respiratory Rate 18 05/21/2022 6:28 PM CDT Oxygen Saturation 93% 05/21/2022 6:28 PM CDT Inhaled Oxygen Concentration - - Weight 98 kg (216 lb) 05/21/2022 1:01 PM CDT Height 170.2 cm (5' 7) 05/21/2022 1:01 PM CDT Body Mass Index 33.83 05/21/2022 1:01 PM CDT Plan of Treatment Health Maintenance Due Date Last Done Comments HEPATITIS B VACCINES (1 of 3 - 19+ 3-dose series) 12/12 HPV/Cotest (21-29) 1989 CERVICAL CANCER SCREENING 1998 HPV/Cotest (30-65) 1998 PAP SMEAR 1998 BREAST CANCER SCREENING 2008 COLORECTAL SCREENING 2013 Colorectal Cancer Screening 2013 FIT-DNA Q 3 years 2013 FIT/FOBT Q 1 year 2013 Flex Sig/CT Colonography Q 5 years 2013 ZOSTER VACCINE (1 of 2) 2018 INFLUENZA VACCINE (#1) 2024 DTAP/TDAP/TD VACCINES (2 - Td or Tdap) 11/28/2028 Medical Devices Implanted Type Area Employee Benefits Coordinator Device Identifier Shelf Expiration Date Model / Serial / Lot Neuro Stimulator Neuro Stimulator [id number] / / Description:brain only MRI's only. QA head coil only and only 30 minutes - [facility] [place] 11/25/21 Insurance [employer] BLUE PREFERRED RX [employer] Commercial Advance Directives For more information, please contact: [phone] * Full Code (Latest Code Status on File) Date Activated Date Inactivated Comments 05/21/2022 3:04 PM 05/21/2022 8:30 PM Care Teams Fitness And Wellness Director Relationship Specialty Start Date End Date West Baptiste PA-C PCP - General Physician Superintendent Recreation 11/24/21
--- OUTSIDE RECORDS SUMMARY | 2025-02-14 10:34 | XMS_ITS | Data Portability ---
Author Organization [facility] [place] Address [address] [place] [address] Care Team Providers Care Broadcast Operations Engineer Name Role Phone FAITH HESTER Urologist BAO BAEZ Primary Care Provider Assessment Encounter Date Assessment Date Assessment LastModified by Organization Details LastModified Time 10/12/2024 10/12/2024 Annual gynecological exam performed. Patient will come back in a year unless there are new symptoms. [email or web address] Not available 10/12/2024 11:43:49 Plan of Treatment Reminders Order Date Submit Date Provider Last Modified By Organization Details Last Modified Time Details Appointments None recorded. Lab urinalysis, dipstick 2023 024 [email or web address] [address], [address], [place], [address], 4 10:00:33 Referral None recorded. Procedures None recorded. Surgeries None recorded. Imaging US, transvagina l 2024 025 [email or web address] [place], [address], [place], [address], 5 22:34:30 Medication Orders hydrocodone 5 mg-acetamin ophen 325 mg tablet 2024 025 SHADI Carrera [facility] [address], [address] [facility], [place], [address], 5 14:30:10 oxybutynin chloride ER 5 mg tablet,exte nded release 24 hr 2024 025 [facility] [address], [address] , [place], [address], 14:28:02 progesteron e micronized 100 mg capsule 2024 025 [facility] [address], [address], [place], [address], 12:15:20 estradiol 1 mg tablet 2024 025 [facility] [address], [address] , [place], [address], 12:15:22 Cipro 500 mg tablet 2024 025 [facility] [address], [address], [place], [address], 14:18:14 hydrocodone 5 mg-acetamin ophen 325 mg tablet 2024 025 [facility] [address]25, [address], [place], [address], 12:13:22 Patient TargetsNo targets recorded. Patient InstructionsNo instructions recorded. Reason for Referral None Reported. Results Created Date Observation Date Name Description Value Unit Range Abnormal Flag Note LastModifiedBy Organization Detail LastModifiedTime 03/31/20 24 03/31/2024 CULTU RE: URINE result report SEE RESULT S BELOW Test: Cultu re: Urine Speci men Sourc e: Urine - Clean Catch Speci men Type: Urine Speci men Date: 2023 1626 Resul t Date: 2023 0625 Resul t Statu s: Final resul t Abnor mal: No Resul ting Lab: [facility] [address] [facility] [address] Tel: CULTU RE ----- ----- ----- --- Cultu re resul t (>=3 organ isms prese nt) indic ates possi ble conta minat ion. Repea t cultu re if sympt oms indic ate. Not Available [facility] (Lab) [address], [place], [address], 04/02/2024 07:28:10 03/31/20 24 03/31/2024 urina lysis , dipst ick Leukocytes ++ Not Available [facility] kaye [address], [place], [address], 03/31/2024 10:12:25 03/31/20 24 03/31/2024 urina lysis , dipst ick Protein + Not Available [place] [address], [place], [address], 03/31/2024 10:12:25 03/31/20 24 03/31/2024 urina lysis , dipst ick pH 5 Not Available [place] [address], [place], [address], 03/31/2024 10:12:25 03/31/20 24 03/31/2024 urina lysis , dipst ick Blood ++ Not Available [place] [address], [place], [address], 03/31/2024 10:12:25 03/31/20 24 03/31/2024 urina lysis , dipst ick Specific [place] 1.030 Not Available [facility] [address], [place], [address], 03/31/2024 10:12:25 05/01/20 24 05/01/2024 CULTU RE: URINE result report SEE RESULT S BELOW Test: Cultu re: Urine Speci men Sourc e: Urine - Clean Catch Speci men Type: Urine Speci men Date: 2023 1653 Resul t Date: 2023 0305 Resul t Statu s: Final resul t Abnor mal: No Resul ting Lab: [facility] [address] [facility] [address] Tel: CULTU RE ----- ----- ----- --- No growt h in 1 day (dete ction level of 10,00 0 colon ies / ml.) Not Available [facility] (Lab) [address] [facility], [place], [address], 05/03/2024 04:07:55 05/01/20 24 05/01/2024 urina lysis , dipst ick Protein trace Not Available [place] [address], [place], [address], 05/01/2024 10:00:07 05/01/20 24 05/01/2024 urina lysis , dipst ick pH 5 Not Available [place] [address], [place], [address], 05/01/2024 10:00:07 05/01/20 24 05/01/2024 urina lysis , dipst ick Specific [place] 1.010 Not Available [facility] [address], [place], [address], 05/01/2024 10:00:07 10/12/19 25 10/12/2024 CULTU RE: URINE result report SEE RESULT S BELOW Test: Cultu re: Urine Speci men Sourc e: Urine - Clean Catch Speci men Type: Urine Speci men Date: 2024 1123 Resul t Date: 2024 2225 Resul t Statu s: Final resul t Abnor mal: No Resul ting Lab: [facility] [address] [facility] [address] Tel: [phone] CULTU RE ----- ----- ----- --- No growt h in 1 day (dete ction level of 10,00 0 colon ies / ml.) Not Available [facility] (Lab) [address] [facility], [place], [address], 10/17/2024 16:53:43 10/12/19 25 10/12/2024 IMAGE GUIDE D PAP AND HPV REGAR DLESS image guided Pap, HPV regardless of Pap result SEE RESULT S BELOW CASE REPOR T: Cytol ogy Gynec ologi aline Repor t Case: [id number] Autho phill parra Provi melanie: Fox Duff MD Colle cted: 10/12 1123 Order ing Locat ion: [place] Patho logrip Recei isabel: 10/13 0713 First Scree n: Donna Caldwell, CT Speci men: Lorenza fernandez Pap - Image d, Cervi x STATE MENT OF ADEQU ACY: Satis facto ry for evalu ation Trans forma tion zone compo nent prese nt Parti ally obscu ring infla mmati on prese nt ----- ----- ----- ----- ----- ----- ----- ----- ----- ----- ----- ----- ----- ----- ----- ----- ----- ---- FINAL DIAGN OSIS: Negat eric for Intra epith elial Lesio n or Mary owen (NIL) . 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 COMME NT: This speci men was revie wed by a Cytot echno logis t and/o r Patho logis t (as indic ated in this repor t) after evalu ation using the Thinp rep Imagi ng Syste m. CLINI ALINE INFOR MATIO N: Menst rual Statu s: LMP (if appli cable ): Clini aline Histo ry/Pr eviou s Pap: Type of Neopl bill (if appli cable ): Signi fican t Clini aline Findi ngs: Other Histo ry: Hormo jackie (if appli cable ): PAP EDUCA MEIR L NOTE: The Pap Test is a scree jim test with an inher ent false negat eric rate. Liqui d-bas ed sampl ing may decre ase, but will not elimi afshin, false negat eric resul ts. A negat eric resul t does not precl ude the prese nce and/o r devel opmen t of disea se, since the prese nce of abnor mal cells in the sampl e depen ds on the locat ion of the lesio n and sampl ing techn ique. Ryann nued regul ar scree jim is the best metho d of cance r preve ntion . If repor misha cytol ogic findi ng do not corre late with physi aline and/o r histo rical findi ngs, furth er inves tigat ion is recom tripp d, as clini kanu sandra nted. Not Available [facility] (Lab) [address] [facility], [place], [address], 10/17/2024 16:53:44 10/26/19 25 10/26/2024 CULTU RE: URINE result report SEE RESULT S BELOW Test: Cultu re: Urine Speci men Sourc e: Urine - Clean Catch Speci men Type: Urine Speci men Date: 2024 1426 Resul t Date: 2024 0503 Resul t Statu s: Final resul t Abnor mal: No Resul ting Lab: [facility] [address] [facility] [address] Tel: [phone] CULTU RE ----- ----- ----- --- No growt h in 1 day (dete ction level of 10,00 0 colon ies / ml.) Not Available [facility] (Lab) [address], [place], [address], 10/29/2024 01:31:25 04/04/20 24 04/04/2024 US, pelvi s No observ ation record ed. [email or web address] [place] [address], [place], [address], 04/04/2024 10:25:52 04/04/20 24 04/04/2024 US, trans vagin al No observ ation record ed. [email or web address] [place] [address], [place], [address], 04/04/2024 10:25:43 04/04/20 24 04/04/2024 US, pelvi s No observ ation record ed. [email or web address] Najera [address], [place], [address], 04/06/2024 17:34:29 04/14/20 24 04/14/2024 MAMMO , scree jim, bilat eral No observ ation record ed. [facility] [address], [place], [address], 04/15/2024 13:26:34 04/14/20 24 04/14/2024 MAMMO , scree jim, bilat eral No observ ation record ed. [facility] [address], [place], [address], 04/15/2024 13:26:34 04/20/20 24 04/20/2024 CT, abdom en + pelvi s, w/ contr ast No observ ation record ed. [facility] [address], [place], [address], 04/22/2024 14:20:47 10/26/19 25 10/26/2024 US, trans vagin al No observ ation record ed. [email or web address] [place] [address], [place], [address], 10/26/2024 12:16:19 10/26/19 25 10/26/2024 US, trans vagin al No observ ation record ed. [email or web address] [place] [address], [place], [address], 10/26/2024 22:04:52 Result Notes None recorded. 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 14:30:49 Screenin g for malignan t neoplasm of rectum Completed 201711/15/2020 Encounte r for screenin g for malignan t neoplasm of rectum;R ecorded Elsewher e: No Locat ion: [facility] S ource: EHR Frog Farmer oswald: N Practi ce ID: 0001 Aditya lable Time: 09:45:00 AM Cindy Izabela [facility], [facility] 14:30:43 Micturit ion finding Completed 201611/15/2020 With urinary symptoms ;Recorde d Elsewher e: No Locat ion: [facility] S ource: EHR Frog Farmer oswald: N Practi ce ID: 0001 Aditya lable Time: 09:45:00 AM Cindy [facility], [facility] 14:30:37 Amenorrh ea [id number] Completed 201811/15/2020 Amenorrh ea;Recor ded Elsewher e: No Locat ion: Kori zurita [facility] S ource: EHR [facility] oswald: N Demarti ce ID: 0001 Aditya lable Time: 11:00:[address] [facility] 14:30:34 Menopaus e present [id number] Active [address] [facility] 10:46:[address] Concept Completed 201711/15/2020 Encntr for general adult medical exam w/o abnormal findings ;Recorde d Elsewher e: No Locat ion: Kori zurita [facility] S ource: EHR Frog Farmer oswald: N Demarti ce ID: 0001 Aditya lable Time: 09:45:[address] [facility] 14:30:45 Bleeding [id number] Completed 201811/15/2020 Abnormal uterine and vaginal bleeding , unspecif ied;Iván rded Elsewher e: No Locat ion: Kori zurita [facility] S ource: EHR Frog Farmer oswald: N Demarti ce ID: 0001 Aditya lable Time: 11:15:[address] [facility] 14:30:39 Substan e abuse counseli ng Completed 201611/15/2020 Tobacco abuse counseli ng;Recor ded Elsewher e: No [facility] S ource: EHR Frog Farmer oswald: N Practi ce ID: 0001 Aditya lable Time: 09:45:00 AM Cindy [facility] 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 1 14:30:47 Acute vaginiti s [id number] Completed 201811/15/2020 Vaginiti s;Record ed Elsewher e: No Locat ion: Kori zurita [facility] S ource: EHR Frog Farmer oswald: N Practi ce ID: 0001 Aditya lable Time: 11:15:00 AM Cindy mitchell [facility] 1 14:30:31 Cigarett e smoker [id number] Active [address] [facility] 10:42:58 Cigarett e smoker [id number] Active [address] [facility] 1 10:49:37 Hidraden itis suppurat roseann [id number] Active 2021 Felix Duff MD [address], [place], [address], [facility] 2 10:22:38 Problem Notes None recorded. Procedures Surgical History Date Name Laterality Status Provider Name and Address Organization Details Recorded Time 04/14/20 24 Date of Last Mammogram completed Marcie [facility] 10/12/2024 11:55:47 09/17/19 24 Date of Last Pap Smear completed Marcie [facility] 12/31/2023 12:56:05 05/05/20 22 Most Recent Bone Density completed Cindykirstin Gurrola [facility] 08/13/2022 11:05:44 05/07/20 21 SALPINGO-OOPHORECT VENUS, LAPAROSCOPIC (SURG) completed Shadia Mishra [facility] 05/08/2021 11:36:53 06/20/20 20 completed Aimee Tellez [facility] 07/28/2021 19:08:35 09/13/19 20 repair of stress incontinence by suprapubic sling completed Sandra De La Cruzzoila [facility] 06/20/2020 10:56:41 09/13/18 97 Cholecystectomy completed Tamiko [facility] 06/19/2020 16:56:36 procedure on foot completed [facility] 09/17/2023 10:41:17 procedure on knee completed [facility] 09/17/2023 10:41:35 procedure on ear completed [facility] 06/19/2020 16:56:54 Imaging Results None recorded. Procedure Notes None recorded. Medical Equipment None Reported. Allergies No known drug allergies Medications Name Sig Start Date Stop Date Status Note LastModified by Organization Details LastModified Time carisopro dol 350 mg tablet TAKE 1 TABLET BY MOUTH 4 TIMES DAILY NEEDED FOR MUSCLE PAIN 07/29 completed Not Available Not Available Not Available celecoxib 200 mg capsule TAKE 1 CAPSULE BY MOUTH EVERY 12 HOURS NEEDED 09/17 completed Not Available Not Available Not Available cyclobenz aprine 10 mg tablet 11/26 completed Not Available Not Available Not Available amoxicill in 500 mg capsule TAKE 1 CAPSULE BY MOUTH 4 TIMES DAILY UNTIL ALL TAKEN 03/31 completed Not Available Not Available Not Available azelastin e 0.05 % eye drops INSTILL 1 DROP INTO AFFECTED EYE(S) TWICE DAILY FOR 30 DAYS active Not Available Not Available No t Available prednison e 10 mg tablet TAKE 1 TABLET BY MOUTH THREE TIMES DAILY FOR 3 DAYS, THEN 1 TWICE DAILY FOR 2 DAYS, THEN 1 ONCE DAILY FOR 1 DAY 03/31 completed Not Available Not Available Not Available doxycycli ne hyclate 100 mg capsule TAKE 1 CAPSULE BY MOUTH TWICE DAILY DIRECTED FOR 7 DAYS 09/17 completed Not Available Not Available Not Available paroxetin e 10 mg tablet take 1 tablet by oral route every day 11/26 completed Prescrib torey Bowen e: No Locat ion: Kori zurita [facility] Natalie monique By: [email or web address] Encounte r DateTime : 03/27/20 11:15:00 AM Not Available Not Available Not Available clindamyc in HCl 300 mg capsule 11/26 completed Not Available Not Available Not Available ammonium lactate 12 % lotion 12/30 completed Not Available Not Available Not Available triamcino lone acetonide 0.5 % topical cream APPLY CREAM TOPICALL Y TO AFFECTED AREA NEEDED TO FEET 12/30 completed Not Available Not Available Not Available amitripty line 150 mg tablet TAKE 1 TABLET BY MOUTH AT BEDTIME 08/13 completed Not Available Not Available Not Available oxybutyni n chloride ER 10 mg tablet,ex tended release 24 hr 11/26 completed Not Available Not Available Not Available azithromy otis 250 mg tablet TAKE 2 TABLETS BY MOUTH ON DAY 1, AND THEN TAKE 1 TABLET BY MOUTH ONCE A DAY ON DAY 2 THROUGH DAY 5 09/17 completed Not Available Not Available Not Available nystatin 100,000 unit/gram topical ointment APPLY OINTMENT TOPICALL Y TO AFFECTED AREA TWICE DAILY active Not Available Not Available No t Available tizanidin e 4 mg tablet TAKE 1 TO 2 TABLETS BY MOUTH EVERY 6 TO 8 HOURS NEEDED FOR MUSCLE PAIN. MAX OF 36 MG PER DAY 12/30 completed Not Available Not Available Not Available fluconazo le 150 mg tablet take 1 tablet by oral route and another in 48 hours active Not Available Not Available No t Available benzonata te 200 mg capsule TAKE 1 CAPSULE BY MOUTH THREE TIMES DAILY NEEDED FOR COUGH 03/31 completed Not Available Not Available Not Available cephalexi n 250 mg capsule 07/29 completed Not Available Not Available Not Available hydrocodo ne 5 mg-acetam inophen 325 mg tablet Take 1 tablet every 6 hours by oral route. active Not Available Not Available No t Available carbamaze pine ER 100 mg tablet,ex tended release,1 2 hr TAKE 1 TABLET BY MOUTH TWICE DAILY FOR 3 DAYS MAY INCREASE BY 200MG PER DAY UNTIL PAIN RELIEF, MAX OF 1200MG PER DAY 08/13 completed Not Available Not Available Not Available phenazopy ridine 200 mg tablet TAKE 1 TABLET BY MOUTH THREE TIMES DAILY NEEDED 12/30 completed Not Available Not Available Not Available prednison e 20 mg tablet TAKE 2 TABLETS BY MOUTH ONCE DAILY FOR 4 DAYS THEN 1 TABLET BY MOUTH FOR 2 DAYS FOR A TOTAL OF 6 DAYS 05/29 completed Not Available Not Available Not Available sertralin e 100 mg tablet TAKE 1 TABLET BY MOUTH ONCE DAILY active Not Available Not Available No t Available acetamino phen 300 mg-codein e 30 mg tablet TAKE 1 TABLET BY MOUTH 4 TIMES DAILY NEEDED 03/31 completed Not Available Not Available Not Available prochlorp erazine maleate 10 mg tablet TAKE 1 TABLET BY MOUTH EVERY 8 HOURS NEEDED FOR NAUSEA AND FOR VOMITING FOR 3 MONTHS MAX 2 TABLETS PER DAY 10/12 completed Not Available Not Available Not Available ciproflox acin 500 mg tablet TAKE 1 TABLET BY MOUTH EVERY 12 HOURS WITH MEALS FOR 7 DAYS 11/02 completed Not Available Not Available Not Available sulfameth oxazole 800 mg-trimet hoprim 160 mg tablet TAKE 1 TABLET BY MOUTH TWICE DAILY active Not Available Not Available No t Available omeprazol e 40 mg capsule,d elayed release TAKE 1 CAPSULE BY MOUTH ONCE DAILY 12/30 completed Not Available Not Available Not Available tramadol 50 mg tablet TAKE 1 TABLET BY MOUTH EVERY 6 HOURS DIRECTED 12/30 completed Not Available Not Available Not Available triamcino lone acetonide 0.1 % topical cream 11/26 completed Not Available Not Available Not Available amoxicill in 500 mg tablet TAKE 1 TABLET BY MOUTH THREE TIMES DAILY 07/29 completed Not Available Not Available Not Available acyclovir 800 mg tablet 11/26 completed Not Available Not Available Not Available ondansetr on 8 mg disintegr ating tablet 09/17 completed Not Available Not Available Not Available pantopraz ole 20 mg tablet,de layed release take 2 tablet by oral route every day 05/29 completed Prescrib torey Bowen e: Yes Loca tion: [facility] Natalie odify By: zander weir DateTime : 01/19/20 17 09:45:00 AM Not Available Not Available Not Available nystatin- triamcino lone 100,000 unit/gram -0.1 % topical ointment APPLY TO THE AFFECTED AREA(S) BY TOPICAL ROUTE 2 TIMES PER DAY 11/26 completed Not Available Not Available Not Available meloxicam 7.5 mg tablet TAKE 1 TABLET BY MOUTH ONCE DAILY NEEDED FOR PAIN 03/31 completed Not Available Not Available Not Available oxycodone -acetamin ophen 5 mg-325 mg tablet TAKE 1 TABLET BY MOUTH EVERY 6 HOURS NEEDED FOR PAIN 12/30 completed Not Available Not Available Not Available alprazola m 0.25 mg tablet TAKE 1 TABLET BY MOUTH THREE TIMES DAILY NEEDED FOR ANXIETY active Not Available Not Available No t Available estradiol 1 mg tablet Take 1 tablet every day by oral route. active Not Available Not Available No t Available oxycodone -acetamin ophen 10 mg-325 mg tablet TAKE 1 TABLET BY MOUTH EVERY 6 HOURS NEEDED FOR PAIN 09/17 completed Not Available Not Available Not Available amitripty line 10 mg tablet TAKE 1 TABLET BY MOUTH ONCE DAILY AT BEDTIME 12/30 completed Not Available Not Available Not Available Flagyl 500 mg tablet take 1 tablet by oral route twice a day for 7 days 11/18 completed Prescrib ed [facility] e: No Locat ion: [facility] odify By: angela dillon Encoun ter DateTime : 03/29/20 12:08:44 PM Not Available Not Available Not Available phenazopy ridine 100 mg tablet TAKE 1 TABLET BY MOUTH THREE TIMES DAILY NEEDED FOR 3 DAYS 03/31 completed Not Available Not Available Not Available hydrocodo ne 7.5 mg-acetam inophen 325 mg tablet TAKE 1 TABLET BY MOUTH EVERY 4 HOURS NEEDED 09/17 completed Not Available Not Available Not Available cephalexi n 500 mg capsule TAKE 1 CAPSULE BY MOUTH 4 TIMES DAILY UNTIL COMPLETE 09/17 completed Not Available Not Available Not Available pantopraz ole 40 mg tablet,de layed release TAKE 1 TABLET BY MOUTH TWICE DAILY active Not Available Not Available No t Available triamcino lone acetonide 0.1 % topical ointment APPLY A THIN LAYER OF OINTMENT TOPICALL Y TO AFFECTED AREA TWICE DAILY active Not Available Not Available No t Available nystatin 100,000 unit/gram topical cream APPLY CREAM TOPICALL Y TO AFFECTED AREA(S) TWICE DAILY 11/18 completed Not Available Not Available Not Available nystatin- triamcino lone 100,000 unit/g-0. 1 % topical cream APPLY CREAM EXTERNAL LY TO AFFECTED AREA TWICE DAILY 12/30 completed Not Available Not Available Not Available oxybutyni n chloride ER 5 mg tablet,ex tended release 24 hr Take 1 tablet every day by oral route. active Not Available Not Available No t Available estradiol 2 mg tablet TAKE 1 TABLET BY MOUTH ONCE DAILY 08/13 completed Not Available Not Available Not Available diclofena c sodium 75 mg tablet,de layed release TAKE 1 TABLET BY MOUTH TWICE DAILY NEEDED FOR PAIN 11/26 completed Not Available Not Available Not [...] EVERY DAY AT BEDTIME NEEDED FOR COUGH 09/17 completed Not Available Not Available Not Available mupirocin 2 % topical ointment APPLY OINTMENT TOPICALL Y TO AFFECTED AREA THREE TIMES DAILY FOR 10 DAYS 12/30 completed Not Available Not Available Not Available gabapenti n 100 mg capsule 11/26 completed Not Available Not Available Not Available ergocalci ferol (vitamin D2) 1,250 mcg (50,000 unit) capsule TAKE 1 CAPSULE BY MOUTH ONCE A WEEK 03/31 completed Not Available Not Available Not Available lorazepam 1 mg tablet 11/26 completed Not Available Not Available Not Available azelastin e 137 mcg (0.1 %) nasal spray USE 2 SPRAY(S) IN EACH NOSTRIL TWICE DAILY FOR 30 DAYS active Not Available Not Available No t Available diazepam 10 mg tablet TAKE 1 TABLET BY MOUTH THREE TIMES DAILY 09/17 completed Not Available Not Available Not Available levofloxa otis 500 mg tablet 06/20 completed Not Available Not Available Not Available estradiol 0.01% (0.1 mg/gram) vaginal cream INSERT 1 GRAM VAGINALL Y 2-3 TIMES A WEEK 09/17 completed Not Available Not Available Not Available methylpre dnisolone 4 mg tablets in a dose pack TAKE BY MOUTH DIRECTED ON INSIDE OF PACKAGE active Not Available Not Available No t Available albuterol sulfate HFA 90 mcg/actua tion aerosol inhaler INHALE 2 PUFFS BY MOUTH EVERY 4 TO 6 HOURS NEEDED FOR SHORTNES S OF BREATH FOR WHEEZING active Not Available Not Available No t Available ketoconaz ole 2 % topical cream APPLY CREAM TOPICALL Y TO AFFECTED AREA ONCE DAILY 12/30 completed Not Available Not Available Not Available ondansetr on 4 mg disintegr ating tablet DISSOLVE 1 TABLET IN MOUTH EVERY 6 HOURS NEEDED 01/21 completed Not Available Not Available Not Available cefdinir 300 mg capsule TAKE 1 CAPSULE BY MOUTH TWICE DAILY FOR 10 DAYS active Not Available Not Available No t Available piroxicam 20 mg capsule take 1 capsule daily active Not Available Not Available No t Available fluticaso ne propionat e 50 mcg/actua tion nasal spray,yesenia pension USE 1 SPRAY(S) IN EACH NOSTRIL ONCE DAILY active Not Available Not Available No t Available sertralin e 50 mg tablet TAKE 1 TABLET BY MOUTH ONCE DAILY WITH FOOD active Not Available Not Available No t Available progester one micronize d 100 mg capsule Take 1 capsule by mouth once daily active Not Available Not Available No t Available amoxicill in 875 mg-potass ium clavulana te 125 mg tablet TAKE 1 TABLET BY MOUTH EVERY 12 HOURS FOR 10 DAYS 05/29 completed Not Available Not Available Not Available amoxicill in 500 mg-potass ium clavulana te 125 mg tablet 06/20 completed Not Available Not Available Not Available tobramyci n 0.3 %-dexamet hasone 0.1 % eye drops,yesenia pension 12/30 completed Not Available Not Available Not Available neomycin- polymyxin -hydrocor t 3.5 mg-10,000 unit/mL-1 % ear drops,yesenia p INSTILL 4 DROPS INTO AFFECTED EAR(S) TWICE DAILY FOR 10 DAYS 12/30 completed Not Available Not Available Not Available dextroamp hetamine- amphetami ne ER 15 mg 24hr capsule,e xtend release TAKE 1 CAPSULE BY MOUTH IN THE MORNING active Not Available Not Available No t Available dextroamp hetamine- amphetami ne ER 25 mg 24hr capsule,e xtend release TAKE 1 CAPSULE BY MOUTH ONCE DAILY active Not Available Not Available No t Available Pneumovax -23 25 mcg/0.5 mL injection syringe 11/26 completed Not Available Not Available Not Available azithromy otis 500 mg tablet TAKE 2 TABLETS BY MOUTH A ONE TIME DOSE 12/05 completed Not Available Not Available Not Available escitalop kristin 10 mg tablet TAKE 1 TABLET BY MOUTH ONCE DAILY 09/17 completed Not Available Not Available Not Available atomoxeti ne 40 mg capsule TAKE 1 CAPSULE BY MOUTH ONCE DAILY 10/12 completed Not Available Not Available Not Available cyclobenz aprine 5 mg tablet TAKE 1 TABLET BY MOUTH ONCE DAILY NEEDED active Not Available Not Available No t Available ciproflox acin 0.3 %-dexamet hasone 0.1 % ear drops,yesenia pension INSTILL 4 DROPS INTO AFFECTED EAR TWICE DAILY FOR 7 DAYS 05/29 completed Not Available Not Available Not Available cholestyr amine (with sugar) 4 gram oral powder TAKE 4 GRAMS BY MOUTH AT BEDTIME WITH 2-3 OUNCES OF WATER active Not Available Not Available No t Available cholestyr amine (with sugar) 4 gram powder for susp in a packet DISSOLVE & TAKE 1 PACKET BY MOUTH TWICE DAILY 12/30 completed Not Available Not Available Not Available bupropion HCl XL 150 mg 24 hr tablet, extended release TAKE 1 TABLET BY MOUTH IN THE MORNING 11/26 completed Not Available Not Available Not Available topiramat e 50 mg tablet active Not Available Not Available Not Available nitrofura ntoin monohydra te/macroc rystals 100 mg capsule TAKE 1 CAPSULE BY MOUTH TWICE DAILY FOR 7 DAYS active Not Available Not Available No t Available Prevalite 4 gram oral powder TAKE 4 GRAMS BY MOUTH DAILY - MIX 4 GRAMS WITH 2 OR 3 OUNCES OF WATER AND TAKE AT BEDTIME 12/30 completed Not Available Not Available Not Available sodium fluoride 1.1 % dental paste 07/29 completed Not Available Not Available Not Available atomoxeti ne 80 mg capsule TAKE 1 CAPSULE BY MOUTH ONCE DAILY 10/12 completed Not Available Not Available Not Available levocetir izine 5 mg tablet TAKE 1 TABLET BY MOUTH ONCE DAILY IN THE EVENING active Not Available Not Available No t Available oxycodone 10 mg tablet 09/17 completed Not Available Not Available Not Available diclofena c 1 % topical gel APPLY 4 GRAMS TOPICALL Y 4 TIMES DAILY NEEDED FOR PAIN. APPLY TO SINGLE KNEE,ANK LE,FOOT; FOR FOOT INCLUDES SOLE/TOE S/TOP OF FOOT 08/13 completed Not Available Not Available Not Available Uribel 118 mg-10 mg-40.8 mg-36 mg capsule TAKE 1 CAPSULE BY MOUTH THREE TIMES DAILY NEEDED. 12/30 completed Not Available Not Available Not Available Myrbetriq 25 mg tablet,ex tended release 11/26 completed Not Available Not Available Not Available Myrbetriq 50 mg tablet,ex tended release TAKE 1 TABLET BY MOUTH ONCE DAILY 08/14 completed Not Available Not Available Not Available Flonase Allergy Relief 12/30 completed Not Available Not Available Not Available Yuvafem 10 mcg vaginal tablet Insert 1 vag tablet at bedtime twice a week @ HS for maintena nce. active Not Available Not Available No t Available Shingrix (PF) 50 mcg/0.5 mL intramusc ular suspensio n, kit 11/26 completed Not Available Not Available Not Available Fluzone Quad (PF) 60 mcg (15 mcg x 4)/0.5 mL IM syringe 11/26 completed Not Available Not Available Not Available Flublok Quad (PF) 180 mcg (45 mcg x 4)/0.5 mL IM syringe 11/26 completed Not Available Not Available Not Available Pataday Once Daily Relief 0.7 % eye drops INSTILL 1 DROP INTO AFFECTED EYE(S) ONCE DAILY 03/31 completed Not Available Not Available Not Available Gemtesa 75 mg tablet TAKE 1 TABLET BY MOUTH ONCE DAILY active Not Available Not Available No t Available Qulipta 10 mg tablet TAKE 1 TABLET BY MOUTH ONCE DAILY active Not Available Not Available No t Available Vitals Date Recorded Body height Body mass index (BMI) Body weight Systolic blood pressure Diastolic blood pressure Provider Name and Address Organization Details Last Updated DateTime 10/12/2024 170.18 cm 33.4 kg/m2 10123.17 g 127 mm[Hg] 85 mm[Hg] Marcie Alvarez [facility] 5 11:46:35 Date Recorded Body height Body mass index (BMI) Body weight Systolic blood pressure Diastolic blood pressure Provider Name and Address Organization Details Last Updated DateTime 11/02/2024 170.18 cm 33.2 kg/m2 29472.58 g 132 mm[Hg] 84 mm[Hg] [facility] 5 14:14:53 Date Recorded Body height Body mass index (BMI) Body weight Systolic blood pressure Diastolic blood pressure Provider Name and Address Organization Details Last Updated DateTime 04/11/2024 170.18 cm 34.1 kg/m2 07939.14 g 127 mm[Hg] 83 mm[Hg] [facility] 4 09:38:51 Date Recorded Body height Body mass index (BMI) Body weight Systolic blood pressure Diastolic blood pressure Provider Name and Address Organization Details Last Updated DateTime 05/01/2024 170.18 cm 34.1 kg/m2 61580.14 g 126 mm[Hg] 84 mm[Hg] [facility] 4 09:44:59 Social History Question Answer Notes LastModified by Organizat ion Details LastModified Time Tobacco Smoking Status Current Every Day Smoker [email or web address] 09/17/2023 10:18:33 Do You Have An Advance Directive? Yes Information n ot available 08/14/2021 Are You Blind Or Do You Have Difficulty Seeing? No Information n ot available 05/29/2021 What Is Your Level Of Caffeine Consumption? None Information not available 08/14/2021 How Much Tobacco Do You Chew? None [email or web address] Information not available 05/29/2021 In The 14 Days Before Symptom Onset, Have You Had Close Contact With A Laboratory-confirm ed COVID-19 While That Case Was Ill? No [email or web address] Information n ot available 05/29/2021 In The 14 Days Before Symptom Onset, Have You Had Close Contact With A Person Who Is Under Investigation For COVID-19 While That Person Was Ill? No [email or web address] Information not available 05/29/2021 Have You Been To An Area Known To Be High Risk For COVID-19? No [email or web address] Information not available 05/29/2021 Are You Deaf Or Do You Have Serious Difficulty Hearing? No [email or web address] Information not available 05/29/2021 What Type Of Diet Are You Following? REGULAR Information n ot available 07/29/2021 What Is The Highest Grade Or Level Of School You Have Completed Or The Highest Degree You Have Received? [id number] [email or web address] Information not available 05/29/2021 Are There Any Guns Present In Your Home? No [email or web address] Information not available 05/29/2021 Do You Use Protection During Sex? No [email or web address] Information not available 07/29/2021 Do You Use Your Seat Belt Or Car Seat Routinely? Yes [email or web address] Information not available 05/29/2021 Do You Have Smoke And Carbon Monoxide Detectors In Your Home? Yes [email or web address] Information not available 05/29/2021 At What Age Did You Start Smoking Tobacco? 20 [email or web address] Information not available 07/29/2021 How Much Tobacco Do You Smoke? 2 PPW [email or web address] Information not available 07/29/2021 Do You Use Sunscreen Routinely? Yes [email or web address] Information not available 05/29/2021 Have You Used IV Drugs? No Information not available 01/21/2021 Sex: Unknown Functional Status Question Answer Note LastModified by Organizat ion Details LastModified Time Do you use any illicit or recreational drugs? No Information not available 01/21/2021 What is your level of alcohol consumption? None [email or web address] Information not available 06/20/2020 Are you able to walk? 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 Moderate Information not available 01/02/2022 Mental Status Question Answer Note LastModified by Organization D etails LastModified Time Do you feel stressed (tense, restless, nervous, or anxious, or unable to sleep at night)? [id number] Information not available 08/14/2021 Family History Relationship Description Onset Age of this Age Resolved Age Notes LastModified by Organization Details LastModified Time Mother Blood coagulation disorder [email or web address] Not available 2020 09:47:26 Father Malignant tumor of stomach [email or web address] Not available 10/15 13:55:17 Father Blood coagulation disorder Not available 2022 10:44:06 Paternal Aunt Malignant tumor of breast [email or web address] Not available 2020 10:01:22 Unspecified Relation Malignant tumor of colon Cousin faby Not available 2021 09:55:54 Notes:Cancer risk form [email or web address] 07/15/2021 Medical History Condition Response Allergies (Food, seasonal, environmental ) N Other N Breast Cancer N Drug/Latex Allergies/Reactions N Blood Transfusion N Dermatologic Disorders N Lung Disease N Defects or Inherited Disease N Breast Problem N Gestational Diabetes N Hematologic disorders N Anesthesia Complications N History of STI N Deep Vein Thrombosis N Polycystic ovary syndrome N Anxiety Disorder N Autoimmune disease N Arthritis N Infertility N Polyps N Acid Reflux (GERD) N History of abnormal pap N Cancer N Stroke N Varicosities N Neurologic/Epilepsy N Endometriosis N High Cholesterol N Headaches N Fibromyalgia N Kidney Disease N Heart Problems N Kidney or Bladder Problems N Thyroid Problems N GI Problems N Eating Disorder N Anemia N Art (IVF or FET) N Psychiatric Illness N Ovarian Cancer N Diabetes N Pulmonary (TB, Asthma) N Hepatitis/Liver Disease N No Past Medical History N Eczema N Urinary Tract Infection Y Abuse/Domestic Violence N Asthma N Trauma/Violence N Depression/ depression N Heart Disease N Pre-Eclampsia N Hypertension N Osteoporosis N Thrombophilias N Gynecological History Statement/Question Response Abnormal Pap N Date of Last Mammogram 04/14/2024 Date of LMP 06/13/2020 On BCP's at Conception? N N Was last menstrual period normal N STIs/STDs N HPV Vaccine N 06/20/2020 Current Control Method Sterilizati on Age at First Child 23 If Post Menopausal, Age at Menopause 50 Are cycles usually normal N Most Recent Bone Density 05/05/2022 Sexually Active? N Menses Monthly N Age of first menstrual cycle 10 Date of Last Pap Smear 09/17/2023 Sexual Problems? N LMP Approximate Y Obstetrics History GPAL:G 2 P 2 0 0 2 Type Value Full Term 2 Living 2 Total 2 Past Encounters Encounter ID Performer Location Encounter Start Date Encounter Closed Date Diagnosis/Indication Diagnosis SNOMED-CT Code Diagnosis ICD10 Code Diagnosis Note [id number] Sandra Zamora CNM [place] [address] [address] 06/20/2020 10:35:36 06/20/2020 11:26:21 Gynecologic examination [id number] Z01.419 Take Calcium with Vitamin D 12-1500mg daily. Do monthly self breast exams. Mammogram to follow visit today. Yearly labs with pcp. It is advised to get annual flu shot in the fall and she could obtain at [facility] or [facility] clinic. If you haven't received the Tdap vaccine in the last 10 years you should obtain one as well. Have mammogram yearly, bone density every 2-3 years and colonoscop y every 5-10 years depending on findings and history. Pt uses nystatin/t riam cream a few times per week on average for yeast and irritation under panus and in groin. Will switch to plain nystatin and only use a steriod if needed. If this does not seem to help she will come in for futher evauation. Engage in daily exercise of low impact aerobic exercise 45-60 minutes 4-5 times weekly. Avoid tobacco and illicit drugs as well as using moderation with alcohol intake less than 1-2 8 oz beverages daily. This lifestyle behavior pattern will lead to less health conditions and longer life span. If BMI greater than 25 weight watchers or dietary consult advised. Pt had decided against treatment for hot flashes as they decreased on their own and cycles still fairly regular with only occasional missed cycle. Questions have been answered. Patient appears to understand instructio ns, but if you have any further questions call or respond to this email.p [id number] Felix Duff MD [place] [address] [address] 11/15/2020 14:16:58 11/15/2020 16:57:06 Pain in pelvis 52606403 R10.2 this patient is a 49-year-ol d female with pelvic pain. A cervical polyp was removed from her cervix using ring forceps. She has a tender uterus. We will perform a pelvic ultrasound and follow-up with the patient discuss treatment options. She is also tender in the suprapubic area. Will check her urine dip and consider treatment for urinary tract infection. 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 Can take azo for discomfort . Start antibiotic s. Call Wednesday to see if culture is back. Vaginitis 44722420 N76.0 Discussed use of mild soap like dove or ivory, cotton underwear w/out dye, hypoallerg enic detergent, wipe from front to back, avoid tub baths, keep perineum clean and dry, d/c use of baby wipes. Encouraged daily intake of yogurt or [employer] probiotic. Internal and external affirm collected. [id number] Felix Duff MD [place] [address] [address] 12/05/2020 09:50:25 12/05/2020 10:41:46 Pain in pelvis 71090124 R10.2 this patient is a 49-year-ol d female with pelvic pain. A cervical polyp was removed from her cervix using ring forceps. She has a tender uterus. We will perform a pelvic ultrasound and follow-up with the patient discuss treatment options. She is also tender in the suprapubic area. Will check her urine dip and consider treatment for urinary tract infection. [id number] Felix Duff MD [place] [address] [address] 12/05/2020 09:50:45 12/05/2020 11:38:00 Pain in pelvis 36396102 R10.2 Cyst of ovary 15885552 N 83.209 This patient is a 49-year-ol d female with pelvic pain. Her pain continues. She had a pelvic ultrasound today she has bilateral ovarian cyst. One is mildly complex. We reviewed the ultrasound results together. We talked about treatment options. We talked about observatio n we talked about surgical interventi on. Patient would like to proceed with the surgical treatment. She is known to continue to have pain. We talked about the procedure itself. We talked about surgical options during the laparoscop y. We agreed to eliminate her risk of ovarian cancer. We agreed to take tubes and ovaries bilaterall y. We will proceed with laparoscop ic bilateral salpingo-o ophorectom y. We spent considerab le time discussing this complex issue and its surroundin g surgical issues. We agreed to proceed with laparoscop ic BSO. She return for the informed consent process. [id number] Felix Duff MD [place] [address] [address] 01/21/2021 09:51:36 01/21/2021 23:56:55 Pain in pelvis 95213625 R10.2 Cyst of ovary 16333436 N 83.209 this patient is a 50-year-ol d female with pelvic pain and ovarian cyst. We have agreed to perform laparoscop ic bilateral salpingo-o ophorectom y. She understand s the risks, benefits, and alternativ es. She has completed the informed consent process and is ready to proceed. [id number] Felix Duff MD [place] [address] [address] 05/08/2021 09:49:51 05/08/2021 09:50:56 [id number] Felix Duff MD [place] [address],[place] [address] 05/14/2021 14:25:54 05/14/2021 15:40:38 Postoperative care [id number] Z48.89 this patient is a 50-year-ol d female who presents for postop follow-up. She had a laparoscop ic bilateral salpingo-o ophorectom y. She did have a serous cystadenom a. We talked about her postoperat eric pain. It seems to be consistent with a normal course of recovery. We discussed hormone replacemen t therapy. She does not seem to have significan t symptoms at this time. We will observe. She has a family history of DVT. To follow-up as needed. Incisions are clean dry and intact. [id number] Sandra Zamora CNM [place] [address],[facility] [place] [address] 05/29/2021 09:47:05 05/29/2021 10:45:40 Urinary symptoms [id number] R39.9 Increase water and avoid caffeine. Call if any worsening of symptoms or if any new symptoms such as fever, back pain, flu like symptoms. [id number] Sandra Zamora CNM [place] [address] [address] 07/29/2021 10:00:30 07/30/2021 19:44:53 Dysuria 94822195 R30.9 Increase water and decrease caffeine. Urine sent for culture. Pt desires treatment while awaiting results. Gynecologi c examination [id number] Z01.419 Take Calcium with Vitamin D 12-1500mg daily. Do monthly self breast exams. Mammogram to follow visit today. Yearly labs with pcp. It is advised to get annual flu shot in the fall and she could obtain at [facility] or [facility] care clinic. If you haven't received the Tdap vaccine in the last 10 years you should obtain one as well. Have mammogram yearly, bone density every 2-3 years and colonoscop y every 5-10 years depending on findings and history. Order given for mammogram and bone density. Engage in daily exercise of low impact aerobic exercise 45-60 minutes 4-5 times weekly. Avoid tobacco and illicit drugs as well as using moderation with alcohol intake less than 1-2 8 oz beverages daily. This lifestyle behavior pattern will lead to less health conditions and longer life span. If BMI greater than 25 weight watchers or dietary consult advised. Questions have been answered. Patient appears to understand instructio ns, but if you have any further questions call or respond to this email. Menopausal symptom 62862 002 Z78.0 Will schedule consult to discuss treatment options with Dr Duff. Mother in 40's from blood clot. [id number] Felix Duff MD [place] [address] [address] 08/14/2021 09:55:29 08/14/2021 11:08:31 Acute urinary tract infection [id number] N39.0 Urinary symptoms [id number] 08 R39.9 Leukocytes in urine [id number] 83127 R82.79 Menopausal symptom 40342 002 N95.1 this patient is a 50-year-ol d female with severe menopausal symptoms. We agreed to start hormone replacemen t therapy. She needs estrogen and progestero ne. She will follow-up in 1 month. We also talked about her recurrent urinary tract infection and recurrent urinary tract infection. We discussed dust to complex issues. We treated and evaluated to complex issues. Spent more than 25 minutes face-to-fa ce. [id number] Sandra Zamora CNM [place] [address] [address] 09/03/2021 12:16:15 09/03/2021 13:33:08 Urinary symptoms [id number] R39.9 Pt states she gets in faster with us than Dr Hester. Will send urine for culture and start antibiotic s. This patient needs further follow up with Dr Hester. Instructed to call or go to ER if any fever or worsening of symptoms. [id number] Felix Duff MD [place] [address] [address] 11/14/2021 11:56:10 11/14/2021 12:49:46 Screening for malignant neoplasm of breast [id number] Z12.39 Recurrent urinary tract infection 995100105 N39.0 this patient is a 50-year-ol d female presents for follow-up on recurrent urinary tract infection and hormone replacemen t therapy. Patient has had multiple urinary tract infections image infections now over the course of last several months. She had a bilateral salpingo-o ophorectom y about a year ago. She may be dealing with a atrophic distal urinary track and vagina. She states that since the bilateral salpingo-o ophorectom y she has had numerous confirmed urinary tract infections . We addressed this by giving her antibiotic s to take after intercours e. She has also been taking oral hormone replacemen t therapy. This is only got started about 2 months ago or 6 weeks ago. It is not yet had sufficient time I feel to have an effect on the bladder, urethra, vagina. We would like to accelerate the restoratio n of vagina urethra and bladder to premenopau amaris status with vaginal estrogen. This will be in conjunctio n with the oral estrogen and progestero ne that she takes. She appears to have urinary tract infection today. She has blood in white blood cells and her urine on dip today. We will send that for culture. Those culture results should be available shortly. We will forward all this to Dr. Hester. He has cared for her urinary urgency, it was treated with InterStim. He was evaluating her for recurrent urinary tract infection. A CT urogram has not been performed yet. Atrophic vaginitis 16945 000 N95.2 [id number] Felix Duff MD [place] [address] [address] 01/02/2022 10:33:18 01/02/2022 11:27:42 Atrophic vaginitis 82790596 N95.2 This patient is a 51-year-ol d female who presents for follow-up on atrophic vaginitis and recurrent urinary tract infection. Patient over a Urology consult. Her recurrent urinary tract infection turned out to be a pelvic floor dysfunctio n. She was sent to physical therapy for pelvic floor dysfunctio n. She is much improved in terms of vaginal I dysfunctio n, vaginal dryness, menopausal symptoms. She has been on 1 mg of estradiol and 1 of 100 mg of Prometrium . This was daily. She is getting twice weekly vaginal estrogen cream. She is doing well. We talked about weight loss in detail. Talked about her weight loss program. She is interested . She has lost 15 lb recently. We spent over 25 minutes face-to-fa ce. We talked about multiple complex topic. [id number] Felix Duff MD [place] [address] [address] 04/03/2022 10:30:15 04/03/2022 11:40:20 Mixed anxiety and depressive disorder [id number] F41.8 this patient is a 51-year-ol d female presents for follow-up on hormone replacemen t therapy and she is complainin g of severe dip symptoms or depression . She is crying. She become severely side. She is sleeping poorly. Her diet has changed. She has never felt like this. She states that her family has history with depression and menopause. We talked about treatment options. She cried in the room. We agreed to increase her estradiol. She is reporting menopausal symptoms. She has hot flashes and night sweats. We spent over 20 minutes face-to-fa ce. More than 50% was counseling . We prescribed medication s. She was given precaution s on the medication s. I described side effects of the Lexapro. She is going to start Lexapro 10 mg p.o. q.day. Menopausal symptom 50008 002 N95.1 [id number] Felix Duff MD [place] [address] [address] 05/04/2022 09:54:48 05/04/2022 11:14:13 Urinary symptoms [id number] R39.9 Mixed anxi ety and depressive disorder [id number] F41.8 Is a 51-year-ol d female presents for follow-up on mood for concerns. Patient was started Lexapro for depression but she quickly discontinu ed it. It made her feel strange she said. We discussed her mood. It is much improved. She is not having any anxiety depression symptoms. She scored well on her EPDS screening. Talked about decreased libido and pelvic floor pain. I gave her an outline of treatment for decreased sexual thoughts and decreased sexual desire. We spent over 20 minutes face-to-fa ce. She is going to look into filled answeri [id number] Felix Duff MD [facility] [address] [address] 08/13/2022 09:40:41 08/13/2022 10:30:22 Urinary symptoms [id number] R39.9 Gynecologi c examination [id number] Z01.419 Annual gynecologi aline exam performed. Patient will come back in a year unless there are new symptoms. Suggest Calcium with Vitamin D if not eating in diet. Patient advised to get annual flu shot. Recommend yearly physicals and preform monthly breast exams. Genetic testing is available for patients with family history of cancer. Engage in safe sexual practices, use condoms. Encouraged to have daily exercise. Avoid tobacco and illicit drugs, moderation of alcohol. If BMI greater than 25 dietary consult advised. If you have any questions please call or email. Mammogram -ordered Colonoscop y - done Bone Density - na Cholestero l - done Pap - today [id number] Felix Duff MD [facility] [address] [address] 12/03/2022 10:31:35 12/03/2022 12:05:47 Menopausal symptom [id number] N95.1 patient is a 51-year-ol d female who had menopausal symptoms and anxiety. Her mood is stabilized with hormone replacemen t therapy. She did not start the weighted present. She did start but had nausea and quit within a week. She is very satisfied with the hormone replacemen t therapy and it is stabilized her mood. Spent 20 minutes face-to-fa ce. More than 50% was counseling . Talked about her pelvic pain. We talked about off-label use of Valium for pelvic floor dysfunctio n and pelvic floor spasm. She was prescribed intravagin al Valium. Pain in pelvis [id number] R10.2 [id number] Felix Duff MD [facility] [address] [address] 09/17/2023 10:18:16 09/17/2023 11:29:28 Urinary symptoms [id number] R39.9 Gynecologi c examination [id number] Z01.419 Z11.51 Annual gynecologi aline exam performed. Patient will come back in a year unless there are new symptoms. Suggest Calcium with Vitamin D if not eating in diet. Patient advised to get annual flu shot. Recommend yearly physicals and preform monthly breast exams. Genetic testing is available for patients with family history of cancer. Engage in safe sexual practices, use condoms. Encouraged to have daily exercise. Avoid tobacco and illicit drugs, moderation of alcohol. If BMI greater than 25 dietary consult advised. If you have any questions please call or email. Mammogram -ordered Colonoscop y - done Bone Density - na Cholestero l - done Pap - today Menopausal symptom 13007 002 N95.1 [id number] MD [facility] [address] [address] 10/12/2024 11:30:17 10/12/2024 12:23:45 Acute urinary tract infection [id number] N39.0 Menopausal symptom 15772 002 N95.1 Gynecologi c examination [id number] Z01.419 Z11.51 Annual gynecologi aline exam performed. Patient will come back in a year unless there are new symptoms. Suggest Calcium with Vitamin D if not eating in diet. Patient advised to get annual flu shot. Recommend yearly physicals and preform monthly breast exams. Genetic testing is available for patients with family history of cancer. Engage in safe sexual practices, use condoms. Encouraged to have daily exercise. Avoid tobacco and illicit drugs, moderation of alcohol. If BMI greater than 25 dietary consult advised. If you have any questions please call or email. Mammogram -ordered Colonoscop y - done Bone Density - na Cholestero l - done Pap - today [id number] [facility] [address] [address] 12/31/2023 12:37:26 12/31/2023 13:25:44 Urinary symptoms [id number] R39.9 Suspect UTIUrine culture sentCounse led on medication R/B's, Most common side effects, & use. All questions were answered to patient satisfacti on. Recurrent urinary tract infection [id number] N39.0 Counseled on the following: Vaginal estrogen therapy for recurrent uti prevention . RTO x 3mos med check Vaginal Dryness: Bothersome symptoms of the vagina and vulva (outer lips of the vagina) increase during and after the menopause transition or may start several years after menopause. The decrease in estrogen with menopause is a major contributo r to vaginal dryness, itching, burning, discomfort , and pain during intercours e or other sexual activity. Vaginal atrophy is the medical term that describes these changes. The genitourin mekhi syndrome of menopause includes bothersome vaginal atrophy often combined with urinary symptoms. Vaginal atrophy may significan tly affect your quality of life, sexual satisfacti on, and relationsh ip with your partner. Unlike hot flashes, which generally improve with time, vaginal symptoms typically worsen with time because of aging and a prolonged lack of estrogen. Vaginal estrogen therapy An effective and safe treatment, low-dose local estrogen is applied directly to the vagina to restore vaginal health and relieve vaginal dryness and discomfort with sexual activity. Improvemen ts usually occur within a few weeks, although complete relief may take several months. This even may be an option for women with a history of breast or uterine cancer but only after careful considerat ion of risks and benefits with a healthcare provider and oncologist . Governmen t-approved low-dose vaginal estrogen products are available by prescripti on as vaginal creams (used two or three nights/wee k), a vaginal estradiol tablet (used twice/week ), and an estradiol vaginal ring (changed every 3 months). All are highly effective. You may wish to try several different forms and choose the one you prefer. Standard doses of estrogen therapy provided to treat hot flashes also treat vaginal dryness, although some women still benefit from additional low-dose vaginal estrogen treatment. If only vaginal symptoms are present, low doses of estrogen applied to the vagina are recommende d. Resources: https://ww w.[employer] Bristolorg/docs /default-s ource/for- women/mn-v aginal-dry ness.pdf Time spent in visit is a total of 21 mins with at least 50% of visit consisting of counseling and review of plan of care. [id number] Felix Duff MD [place] [address],[place] [address] 03/31/2024 09:56:37 03/31/2024 10:41:19 Urinary symptoms [id number] R39.9 patient has pelvic pain that radiates to her back. She is a 53-year-ol d female with a history of pelvic floor dysfunctio n and a recent episode of pelvic pain. She is sweet previously treated for urinary tract infection that improved her pain. She also has a positive urine dip today. We will treat with antibiotic s. She was prescribed Bactrim double strength, 1 tablet p.o. b.i.d.. Talked about the medication s. We talked about precaution s. We talked about side effects. Talked about risks, benefits, and alternativ es to the medication . We also discussed her pelvic floor dysfunctio n. Talked about her hormone replacemen t therapy. We are following up on her vaginal estrogen that has been started in addition to the oral hormone replacemen t therapy, which is combined estrogen and progestero ne. We will continue the current routine. This was started by the nurse practition er. She has using the vaginal estrogen twice a week. She reports good results. We spent over 20 minutes on her care. Pelvic fco or dysfunction [id number] M62.9 [id number] Felix Duff MD [place] [address],[place] [address] 04/04/2024 09:49:59 04/04/2024 10:24:54 Pain in pelvis [id number] R10.2 [id number] Felix Duff MD [facility] [address],[place] [address] 04/11/2024 09:19:52 04/11/2024 10:25:03 Abdominal pain [id number] R10.9 Female who presents for follow-up on ultrasound . She reports continued pain in the right lower quadrant that radiates around to her back and around to the left side of the pelvis. She has 1 small fibroid. The fibroid did get smaller over a several month interval. This could be cramping from the irritable fibroid. It could be bladder inflammati on. She does have overactive bladder and a nerve modulator. She has had urinary tract infections . She denies any GI symptoms. We discussed further consultati on and evaluation . We agreed to CT of the abdomen and pelvis. More than 20 minutes were spent on her care. [id number] Felix Duff MD [facility] [address],[place] [address] 05/01/2024 09:25:50 05/02/2024 09:11:47 Urinary symptoms [id number] R39.9 Pain in pelvis [id number] R10.2 this patient is a 52-year-ol d female presents for follow-up on pelvic pain. Talked about her pelvic pain in detail again. Talked about treatment options. Patient is considerin g hysterecto my. At this time we will continue to observe her pain. If it is not improved, she may proceed with hysterecto my. I spent over 20 minutes in her care in total. We talked about hysterecto my in detail. Talked about recovery, technical aspects, pain control. Talked by uterine fibroids again. Talked with the Etiology, natural history, and treatment of. Talked about possibly pain from uterine fibroids. [id number] Felix Duff MD [place] [address],[facility] [place] [address] 10/26/2024 11:18:49 10/26/2024 12:18:00 Pain in pelvis [id number] R10.2 D25.9 this patient is a 52-year-ol d female presents for follow-up on pelvic pain. Talked about her pelvic pain in detail again. Talked about treatment options. Patient is margareth parra hysterecto my. At this time we will continue to observe her pain. If it is not improved, she may proceed with hysterecto my. I spent over 20 minutes in her care in total. We talked about hysterecto my in detail. Talked about recovery, technical aspects, pain control. Talked by uterine fibroids again. Talked with the Etiology, natural history, and treatment of. Talked about possibly pain from uterine fibroids. [id number] Felix Duff MD [facility] [address] [address] 11/02/2024 13:55:09 11/02/2024 14:44:08 Urgent desire to urinate [id number] R39.15 Low back pain [id number] M54.50 3-year-old female presents for follow-up on ultrasound . We agreed to recheck her fibroids. They appeared to be stable. She has low back pain. We have considered the fibroids as a possible source of her low back pain. At this time she has a plan to see her primary care doctor about her low back pain. She we will consider chiropract ic services. She was given pain medication for low back pain. I indicated to her that this would be the last time. She understand s that to chronic pain management would have to be involved in any further narcotic pain medication use for low back pain that is chronic. I spent over 20 minutes on her care in total. Health Concerns Section Related Observation LastModified by Organization Detai ls LastModified Time None Recorded Concern Status LastModified by Organization Details LastModified Time None Recorded Advance Directives Directive Y: Payers Encounter Date Sequence Insurance Name Policy Number Policy Marie Covered Member ID Marie Member ID Guarantor Name 04/11/2024 1 [employer] [id number] Matt Link [id number] Marco Link 05/01/2024 1 [employer] [id number] Matt Link [id number] Marco Link 10/12/2024 1 [employer] [id number] Matt Link [id number] 27 Marco Link 10/26/2024 1 [employer] [id number] Matt Link [id number] 27 Marco Link 11/02/2024 1 [employer] [id number] Matt Link [id number] Marco Link Notes Date Note Type Note Provider Name and Address Organization Details Recorded Time 04/11/2024 text/html Female who presents for follow-up on ultrasound. She reports continued pain in the right lower quadrant that radiates around to her back and around to the left side of the pelvis. She has 1 small fibroid. The fibroid did get smaller over a several month interval. This could be cramping from the irritable fibroid. It could be bladder inflammation. She does have overactive bladder and a nerve modulator. She has had urinary tract infections. She denies any GI symptoms. We discussed further consultation and evaluation. We agreed to CT of the abdomen and pelvis. More than 20 minutes were spent on her care. Felix Duff MD [address], [place], [address], [facility] 04/11/2024 10:23:43 05/01/2024 text/html this patient is a 52-year-old female presents for follow-up on pelvic pain. Talked about her pelvic pain in detail again. Talked about treatment options. Patient is considering hysterectomy. At this time we will continue to observe her pain. If it is not improved, she may proceed with hysterectomy. I spent over 20 minutes in her care in total. We talked about hysterectomy in detail. Talked about recovery, technical aspects, pain control. Talked by uterine fibroids again. Talked with the Etiology, natural history, and treatment of. Talked about possibly pain from uterine fibroids. Felix Duff MD [address], [place], [address], [facility] 05/03/2024 09:49:45 10/12/2024 text/html Annual GYNReport ed bypatient.History: no gynecologic complaints Menstrual cycle:Normal menses Urinary symptoms:No hematuria Vulva:No genital lesion Vagina:Normal vaginal discharge Breast:No breast pain; No breast lump Sexual complaints:No sexual complaints Menopausal Symptoms:No menopausal symptoms; Normal vaginal lubrication Psychological symptoms:No depression; No anxiety Preventive measures:Encourage self breast examination; Encourage regular exercise Felix Duff MD [address], [place], [address], [facility] 10/12/2024 12:23:01 11/02/2024 text/html 3-year-old femdaisy zurita presents for follow-up on ultrasound. We agreed to recheck her fibroids. They appeared to be stable. She has low back pain. We have considered the fibroids as a possible source of her low back pain. At this time she has a plan to see her primary care doctor about her low back pain. She we will consider chiropractic services. She was given pain medication for low back pain. I indicated to her that this would be the last time. She understands that to chronic pain management would have to be involved in any further narcotic pain medication use for low back pain that is chronic. I spent over 20 minutes on her care in total. Felix Duff MD [address], [place], [address], [facility] 11/02/2024 14:43:34 OBGyn Episode Ob Episode Information Episode Created Date Number of Fetuses Patient Bloodtype Patient rh Status Prepregnancy Weight lbs Domestic Partner Domestic Partner Phone Father Name Dam Attendant Status 06/20/20 20 1 CLOSED Fetus Data First Name Last Name Admitted to NICU Weight (g) Sex Living Outcome Pediatric Complications Fetus ID Race Codes Race Delivery Type M [id number] Vaginal Delivery Brooks Calculation Initial Brooks Date Initial Exam Date Initial Exam Provider Initial Ultrasound Date Last Menstrual Period Date Ultra Sound Weeks Gestation 0 Eighteen To Twenty Week Brooks Update Ultra Sound Date Fundal Height At Umbil Quickening Date Ultra Sound Latest Weeks Gestation Final Brooks Confirmed By Final Brooks Confirmed Date Final Brooks Date Ultra Sound Latest Days Gestation 0 0 Menstrual History Last Menstrual Date Menses Monthly On Bcp Conception Prior Menses Frequency Hcg Plus Date Menarche Onset Age Delivery Information Delivery Date Delivery Type Labor Anesthesia Weeks Gestation Incision Type Labor Labor Length Hrs Delivered By Post Complications Tubal Sterilization Discharge Date Comments 5 Discharge Information Feeding Method Contraceptive Method Maternal HG B and HCT Levels Ob Episode Information Episode Created Date Number of Fetuses Patient Bloodtype Patient rh Status Prepregnancy Weight lbs Domestic Partner Domestic Partner Phone Father Name Dam Attendant Status 06/20/20 20 1 CLOSED Fetus Data First Name Last Name Admitted to NICU Weight (g) Sex Living Outcome Pediatric Complications Fetus ID Race Codes Race Delivery Type M [id number] Vaginal Delivery Brooks Calculation Initial Brooks Date Initial Exam Date Initial Exam Provider Initial Ultrasound Date Last Menstrual Period Date Ultra Sound Weeks Gestation 0 Eighteen To Twenty Week Brooks Update Ultra Sound Date Fundal Height At Umbil Quickening Date Ultra Sound Latest Weeks Gestation Final Brooks Confirmed By Final Brooks Confirmed Date Final Brooks Date Ultra Sound Latest Days Gestation 0 0 Menstrual History Last Menstrual Date Menses Monthly On Bcp Conception Prior Menses Frequency Hcg Plus Date Menarche Onset Age Delivery Information Delivery Date Delivery Type Labor Anesthesia Weeks Gestation Incision Type Labor Labor Length Hrs Delivered By Post Complications Tubal Sterilization Discharge Date Comments 0 Discharge Information Feeding Method Contraceptive Method Maternal HG B and HCT Levels
== END 2025-02-14 10:29 | disposition home or self-care (01) ==
PROVIDERS: PCP Internal Medicine; Visit Provider Nurse Practitioner Family
DX: N20.0 Calculus of kidney (principal)
CPT/HCPCS: 74018

== ENCOUNTER 2025-03-01 09:59 | Outpatient (CLI) | payer BC, SELFPAY ==
--- NOTE | ~2025-03-01 | CT_ITS ---
Non-contrast CT scan of the Abdomen and Pelvis Clinical indication: Left kidney stone Technique: 2.5 mm axial scans were obtained through the abdomen and pelvis without intravenous or or al contrast. Dose reduction technique was used on this scan by utilizing automated exposure control a nd iterative reconstruction technique. The dose-length product (DLP) was 877.51 mGy-cm. COMPARISON: 04/20/2024 Findings: Images through the lung bases reveal right basilar scarring or atelectasis. There is no evidence of renal or ureteral calculi. The kidneys and the ureters are nondilated. The liver, spleen, pancreas, and adrenals appear normal. Cholecystectomy clips are present. 02/28/2025 . There is no evidence of bowel obstruction. Images through the pelvis were performed. There is no evidence of ascites or lymphadenopathy. Urinary bladder unremarkable. No pelvic mass seen. Impression: No renal, ureteral, or bladder stone. No hydronephrosis. Reviewed, dictated and finalized at [facility]. Impression: No renal, ureteral, or bladder stone. No hydronephrosis.
== END 2025-03-01 10:00 | disposition home or self-care (01) ==
LOC: MICIMG 10:00
PROVIDERS: PCP Obstetrics & Gynecology; Visit Provider Nurse Practitioner Family
DX: N20.0 Calculus of kidney (principal)
CPT/HCPCS: 74176

== ENCOUNTER 2025-03-13 11:41 | Outpatient (CLI) | payer BC, SELFPAY ==
--- NOTE | ~2025-03-13 | XR_ITS ---
XR sacrum coccyx min 2V Ordering provider: Kimberly Fabian APRN History: . Kidney stone L side . Comparison: None. FINDINGS: BONES: No acute fracture or dislocation. JOINTS: The sacroiliac joint spaces are normal. SOFT TISSUES: Atherosclerotic changes of the aorta. Spinal stimulator is seen in the right side. Pubic symphysitis. IMPRESSION: No acute osseous abnormality sacrum. Reviewed, dictated and finalized at location A.
== END 2025-03-13 11:42 | disposition home or self-care (01) ==
PROVIDERS: PCP Obstetrics & Gynecology; Referring Provider Internal Medicine; Visit Provider Nurse Practitioner Family
DX: N20.0 Calculus of kidney (principal)
CPT/HCPCS: 72220

== ENCOUNTER 2025-04-17 10:32 | Outpatient (CLI) | payer BC, SELFPAY ==
--- NOTE | ~2025-04-17 | MM_ITS ---
EXAMINATION: MM screening [facility] HISTORY: Screening TECHNIQUE: Craniocaudal and mediolateral oblique 3-D tomosynthesis images were obtained and synthetic 2-D images were generated. CAD analysis was submitted and interpreted. COMPARISON: Comparison to multiple prior studies sequentially, with oldest reviewed study dated 03-30 . BREAST PARENCHYMAL COMPOSITION: There are scattered areas of fibroglandular density. FINDINGS: There is no evidence of suspicious mass, calcification, or architectural distortion to sug gest malignancy in either breast. IMPRESSION: 1. No mammographic evidence of malignancy. 2. Recommend routine screening mammography in one year. BI-RADS Category 1: Negative Reviewed, dictated and finalized at location B.
== END 2025-04-17 10:33 | disposition home or self-care (01) ==
LOC: MICIMG 10:32
PROVIDERS: PCP Obstetrics & Gynecology; Visit Provider Obstetrics & Gynecology
DX: Z12.31 Encounter for screening mammogram for malignant neoplasm of breast (principal)
CPT/HCPCS: 77063; 77067

== ENCOUNTER 2025-05-16 11:07 | Outpatient (CLI) | payer BC, SELFPAY ==
--- NOTE | ~2025-05-16 | CT_ITS ---
EXAMINATION: CT sinus wo con DATE: 05/16/2025 11:29 INDICATION: Chronic sinusitis TECHNIQUE: Computed tomography (CT) of the paranasal sinuses was performed without intravenous contrast. The dose-length product was 287.09 mGy-cm. Automated exposure control and iterative reconstruction technique were employed. COMPARISON: CT dated 03/03/2024 FINDINGS: There is no significant mucosal thickening, fluid or mucoperiosteal reaction. Rightward nasal septal deviation. Ostiomeatal units are patent. Mastoids are pneumatized. IMPRESSION: 1. No significant abnormality of the paranasal sinuses. Reviewed, dictated and finalized at location O.
== END 2025-05-16 11:08 | disposition home or self-care (01) ==
PROVIDERS: PCP Internal Medicine; Visit Provider Otolaryngology
DX: J32.9 Chronic sinusitis, unspecified (principal)
CPT/HCPCS: 70486